=== PATIENT | female | born 1935 | race Caucasian/White ===

== ENCOUNTER → 2016-12-09 | Outpatient (CLI) | payer OTHER ==
[~2016-12-09] MED LIST: GADAVIST IV PRN
--- NOTE | 2016-12-09 14:32 | DIAGNOSTIC IMAGING REPORT ---
BILATERAL CAROTID DOPPLER STUDY HISTORY: SYNCOPE,DIZZINESS,VISUAL CHANGES COMPARISON: None. TECHNIQUE: Real-time, grayscale, and color Doppler sonography of the carotid arteries was performed. Imaging reviewed in the transverse and longitudinal planes. All measurements were calculated based on NASCET criteria. FINDINGS: Antegrade flow is seen in the bilateral vertebral arteries. The brachial pressures are hemodynamically similar. A single small focus of calcified plaque within the right carotid bulb. The peak systolic velocity within the right ICA is 73 cm/s. The right systolic ratio is 1.2. The peak systolic velocity within the left ICA is 78 cm/s. The left systolic ratio is 1.1. IMPRESSION: No hemodynamically significant stenosis seen within the carotid arteries. Electronically signed by: Jonas Hoffman M.D. 12/09/2016 2:31 PM Dictated Date/Time: 12/09/2016 2:28 PM
--- NOTE | 2016-12-09 15:44 | DIAGNOSTIC IMAGING REPORT ---
Brain MRI WITH AND WITHOUT CONTRAST HISTORY: SYNCOPE,DIZZINESS,VISUAL CHANGES TECHNIQUE: Multiplanar multisequence MRI of the brain was performed both before and after the intravenous administration of contrast. COMPARISON STUDY: None. FINDINGS: There is no mass, hematoma, midline shift, or acute infarct. The paranasal sinuses are clear. The mastoid air cells are clear. The ventricles and sulci demonstrate mild age-related involutional changes. Scattered foci of T2 hyperintensity seen within the periventricular and subcortical white matter are nonspecific but suggestive of mild microvascular ischemic changes. The major vascular flow voids at the skull base are well-maintained. Small old lacunar infarcts within the right cerebellar hemisphere. IMPRESSION: No acute intracranial abnormality. Scattered foci of T2 hyperintensity seen within the periventricular and subcortical white matter are nonspecific but favor microvascular ischemic change. 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 Electronically signed by: Jonas Hoffman M.D. 12/09/2016 3:42 PM Dictated Date/Time: 12/09/2016 3:34 PM
== END | disposition home or self-care (01) ==
LOC: C.ULTR 13:45
PROVIDERS: ATTEND Physician Assistant
DX: H53.9 Unspecified visual disturbance (principal); R55 Syncope and collapse; R42 Dizziness and giddiness; R41.3 Other amnesia; S09.90XA Unspecified injury of head, initial encounter; X58.XXXA Exposure to other specified factors, initial encounter; G44.301 Post-traumatic headache, unspecified, intractable; Z86.73 Personal history of transient ischemic attack (TIA), and cerebral infarction without residual deficits

== ENCOUNTER 2019-01-08 22:04 | Inpatient (IN) ==
--- OUTSIDE RECORDS SUMMARY | 2019-01-08 22:08 | External Medical Summary | Continuity of Care Document ---
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 Refills: 0 Aspirin Adult Low Dose 81 MG Oral Tablet Delayed Relea se; TAKE 1 TABLET Bedtime Maria Goss Start: 16-Dec-2016 Quantity: 1 120 Tablet Bottle Refills: 0 Procedures History of Hysterectomy Status: Complete d History of Knee Surgery Status: Complete d Immunizations Immunizations not documented Family History Father Family history of hyperlipidemia (V18.19) (Z83.438) Status: Active Brother Family history of lung disease (V19.8) (Z83.6) Status: Activ e Social History - Smoking Status Never smoker Plan of Treatment Planned Observations Planned Goals not documented Results No Known Results Results not documented
[2019-01-08 22:46] LABS: Basophils # (auto) 0.01 K/uL (0-0.2); Basophils % (auto) 0.2 %; Eosinophils # (auto) 0.08 K/uL (0-0.5); Eosinophils % (auto) 1.6 %; Hematocrit (blood only) 43.7 % (37-47); Hemoglobin 14.2 g/dL (12.0-16.0); Immature Granulocytes # (auto) 0.01 K/uL (0.00-0.02); Immature Granulocytes % (auto) 0.2 %; Lymphocytes # (auto) 1.64 K/uL (1.2-3.4); Lymphocytes % (auto) 32.9 %; Mean Corpuscular Hgb Conc 32.5 g/dL (32-36); Mean Platelet Volume 10.6 fL (7.4-10.4); Monocytes # (auto) 0.61 K/uL (0.11-0.59); Monocytes % (auto) 12.2 %; Neutrophils # (auto) 2.64 K/uL (1.4-6.5); Neutrophils % (auto) 52.9 %; Platelet Count 160 K/uL (130-400); RDW Coefficient of Variation 14.3 % (11.5-14.5); RDW Standard Deviation 44.9 fL (36.4-46.3); Red Blood Count 5.08 M/uL (4.2-5.4); White Blood Count 4.99 K/uL (4.8-10.8)
[2019-01-08 23:03] LABS: Albumin Level 3.6 gm/dl (3.4-5.0); BUN Creatinine Ratio 29.1 (10-20); Calcium 9.6 mg/dl (8.5-10.1); Creatinine Clr Calc Pharmacy 61.4 ml/min; Est GFR (African American) 94.7; Est GFR (Non-African American) 81.7; Potassium 4.1 mmol/L (3.5-5.1)
[2019-01-08 23:06] LABS: Bilirubin,Total 0.4 mg/dl (0.2-1); Globulin 3.7 gm/dl (2.5-4.0); Total Protein 7.3 gm/dl (6.4-8.2)
[2019-01-08 23:08] LABS: Appearance Urine Clear (Clear); Bacteria Urine Automated Negative (Negative); Bilirubin Urine Negative (Negative); Blood Urine Negative (Negative); Color Urine Yellow; Glucose Urine UA Negative (Negative); Ketones Urine Negative (Negative); Leukocyte Esterase Urine Trace (Negative); Nitrite Urine Negative (Negative); Protein Urine Negative (Negative); RBC Urine Automated 0-4 /hpf (0-4); Specific Gravity Urine 1.015 (1.000-1.030); Urobilinogen Urine Negative (Negative)
[2019-01-09 01:27] LABS: Partial Thromboplastin Ratio 0.9; Partial Thromboplastin Time 24.9 Seconds (21.0-31.0); Prothrombin Time 10.6 Seconds (9.0-12.0)
[2019-01-09 01:30] LABS: Albumin Level 3.6 gm/dl (3.4-5.0); Creatinine Clr Calc Pharmacy 61.4 ml/min; Est GFR (African American) 94.7; Est GFR (Non-African American) 81.7; Potassium 3.9 mmol/L (3.5-5.1)
[2019-01-09 01:37] LABS: Bilirubin,Total 0.4 mg/dl (0.2-1); Globulin 3.5 gm/dl (2.5-4.0); Total Protein 7.1 gm/dl (6.4-8.2); Troponin I 0.068 ng/ml (0-0.045)
[2019-01-09] MEDS ORDERED: ASPIRIN 81 MG CHEW PO STA (02:27)
--- NOTE | 2019-01-09 03:00 | History & Physical Report ---
Date of Service January 09, 2019 Assessment & Plan (1) TIA (transient ischemic attack): Hypertension, elevated secondary to possible stroke Troponin elevation suspected above hyperglycemia rule out DM OBS Medical telemetry Neurochecks Aspirin for stroke prevention. MRI/MRA of the brain RE TIA symptoms Neurology consult RE transient aphasia, LLE weakness Additional stroke work-up pending MRI results Permissive hypertension until stroke ruled out check lipid profile, hemoglobin A1c DVT prophylaxis Lovenox subcu Full code Patient son requesting updates from providers. Mr. Thor Nichols, contact #[phone]. History of Present Illness Chief Complaint: Left leg weakness, trouble talking Primary Care Provider: Hermelinda Judge MD History obtained from patient and records. Medical history significant for hypertension. Last night, patient noted left leg weakness, trouble getting her words out. No chest pain, no S OB. No headache. May have happened before but not lasting as long . Improving symptoms at the ER. 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 Allergies Allergy/AdvReac Type Severity Reaction Status Date / Time No Known Allergies Allergy Unverified 01/08/19 23:30 Home Medications Home Medications Medication Instructions Recorded Confirmed Type lisinopril 10 mg PO DAILY 01/08/19 01/08/19 History Past Med/Surg History Medical History Hypertension Family History Other Family history non-contributory Social History Preferred Language: Polish Communication Ability: Effective Framing Inspector Required: No Beliefs That Will Affect Care: None marital status: Current Living Situation: Spouse Other Information That Helps Us Care for You: No Feels Safe at Home: Yes Safety Concerns: Feels Safe At This Time Smoking Status: Never smoker Hx Alcohol Use: No Hx Substance Use: No Review of Systems Review of Systems: As per HPI, all 10 systems reviewed, all other ROS negative Physical Exam Physical Exam: GENERAL: Comfortable, pleasant, looks younger for stated age, no respiratory distress SKIN: Normal color, warm HEENT: [place] palpebral conjunctivae, no ptosis, subtle left-sided upper lip asymmetry noted on speech (chronic as per patient), moist buccal mucosa NECK : Supple, no tenderness CHEST : CTA, no tenderness HEART : RRR, no obvious murmurs ABDOMEN: Some distention, nontender EXTREMITIES : Minimal LE swelling, no LE tenderness, no other conspicuous deformities noted NEUROLOGIC : Coherent, no resting facial asymmetry, no pronator drift, gait and stance not assessed Results & Data Vital Signs (Past 12 Hours) Vital Signs Temp Pulse Pulse Resp BP BP Pulse Ox 01/09/19 02:19 60 16 144/77 H 95 01/09/19 01:14 64 16 166/78 H 95 01/09/19 00:25 64 16 169/84 H 94 01/08/19 22:52 99 01/08/19 22:11 36.8 C 62 16 189/98 H 96 Laboratory Results Laboratory Results WBC 4.99 K/uL (4.8-10.8) 01/08/19 22:08 RBC 5.08 M/uL (4.2-5.4) 01/08/19 22:08 Hgb 14.2 g/dL (12.0-16.0) 01/08/19 22:08 Hct 43.7 % (37-47) 01/08/19 22:08 MCV 86.0 fL (80-100) 01/08/19 22:08 MCH 28.0 pg (25-34) 01/08/19 22:08 MCHC 32.5 g/dL (32-36) 01/08/19 22:08 RDW Std Deviation 44.9 fL (36.4-46.3) 01/08/19 22:08 RDW Coeff of Reece 14.3 % (11.5-14.5) 01/08/19 22:08 Plt Count 160 K/uL (130-400) 01/08/19 22:08 MPV 10.6 fL (7.4-10.4) H 01/08/19 22:08 Immature Gran % (Auto) 0.2 % 01/08/19 22:08 Neut % (Auto) 52.9 % 01/08/19 22:08 Lymph % (Auto) 32.9 % 01/08/19 22:08 [place] % (Auto) 12.2 % 01/08/19 22:08 Eos % (Auto) 1.6 % 01/08/19 22:08 Baso % (Auto) 0.2 % 01/08/19 22:08 Immature Gran # (Auto) 0.01 K/uL (0.00-0.02) 01/08/19 22:08 Neut # (Auto) 2.64 K/uL (1.4-6.5) 01/08/19 22:08 Lymph # (Auto) 1.64 K/uL (1.2-3.4) 01/08/19 22:08 [place] # (Auto) 0.61 K/uL (0.11-0.59) H 01/08/19 22:08 Eos # (Auto) 0.08 K/uL (0-0.5) 01/08/19 22:08 Baso # (Auto) 0.01 K/uL (0-0.2) 01/08/19 22:08 PT 10.6 Seconds (9.0-12.0) 01/09/19 00:46 INR 1.0 (0.9-1.1) 01/09/19 00:46 APTT 24.9 Seconds (21.0-31.0) 01/09/19 00:46 PTT Ratio 0.9 01/09/19 00:46 Sodium 142 mmol/L (136-145) 01/09/19 00:46 Potassium 3.9 mmol/L (3.5-5.1) 01/09/19 00:46 Chloride 107 mmol/L (98-107) 01/09/19 00:46 Carbon Dioxide 29 mmol/L (21-32) 01/09/19 00:46 Anion Gap 6.0 (3-11) 01/09/19 00:46 BUN 16 mg/dl (7-18) 01/09/19 00:46 Creatinine 0.66 mg/dl (0.6-1.2) 01/09/19 00:46 Est Cr Clr Drug Dosing 61.4 ml/min 01/09/19 00:46 Est GFR ( Amer) 94.7 01/09/19 00:46 Est GFR (Non-Af Amer) 81.7 01/09/19 00:46 BUN/Creatinine Ratio 24.0 (10-20) H 01/09/19 00:46 Glucose 111 mg/dl (70-99) H 01/09/19 00:46 Calcium 9.0 mg/dl (8.5-10.1) 01/09/19 00:46 Magnesium 2.0 mg/dl (1.8-2.4) 01/09/19 00:46 Total Bilirubin 0.4 mg/dl (0.2-1) 01/09/19 00:46 AST 13 U/L (15-37) L 01/09/19 00:46 ALT 16 U/L (12-78) 01/09/19 00:46 Alkaline Phosphatase 43 U/L (45-117) L 01/09/19 00:46 Troponin I 0.068 ng/ml (0-0.045) H* 01/09/19 00:46 Total Protein 7.1 gm/dl (6.4-8.2) 01/09/19 00:46 Albumin 3.6 gm/dl (3.4-5.0) 01/09/19 00:46 Globulin 3.5 gm/dl (2.5-4.0) 01/09/19 00:46 Albumin/Globulin Ratio 1.0 (0.9-2) 01/09/19 00:46 TSH 2.060 uIu/ml (0.300-4.500) 01/09/19 00:46 Urine Color Yellow 01/08/19 22:50 Urine Appearance Clear (Clear) 01/08/19 22:50 Urine pH 6.0 (4.5-7.5) 01/08/19 22:50 Ur Specific [place] 1.015 (1.000-1.030) 01/08/19 22:50 Urine Protein Negative (Negative) 01/08/19 22:50 Urine Glucose (UA) Negative (Negative) 01/08/19 22:50 Urine Ketones Negative (Negative) 01/08/19 22:50 Urine Blood Negative (Negative) 01/08/19 22:50 Urine Nitrite Negative (Negative) 01/08/19 22:50 Urine Bilirubin Negative (Negative) 01/08/19 22:50 Urine Urobilinogen Negative (Negative) 01/08/19 22:50 Ur Leukocyte Esterase Trace (Negative) H 01/08/19 22:50 Urine WBC (Auto) 1-5 /hpf (0-5) 01/08/19 22:50 Urine RBC (Auto) 0-4 /hpf (0-4) 01/08/19 22:50 U Hyaline Cast (Auto) 1-5 /lpf (0-5) 01/08/19 22:50 U Epithel Cells (Auto) 10-20 /lpf (0-5) H 01/08/19 22:50 Urine Bacteria (Auto) Negative (Negative) 01/08/19 22:50 Blood Type O Positive 01/09/19 00:46 Antibody Screen NEGATIVE 01/09/19 00:[address] head Initial read: No intracranial hemorrhage or apparent cortical infarct. Involutional changes with small vessel disease. EKG as per my interpretation rate 65, NSR, LAD, LAFB, RBBB, LVH, septal infarct
[2019-01-09] MEDS ORDERED: TRAMADOL HCL 50 MG TABLET PO PRN (04:41)
[2019-01-09] MEDS ORDERED: LACTATED RINGER'S 1,000 ML IV ONE (04:41)
[2019-01-09] MEDS ORDERED: NITROGLYCERIN SL 0.4 MG/TAB TAB SL PRN (04:41)
[2019-01-09] MEDS ORDERED: ACETAMINOPHEN 325 MG TAB PO PRN (04:41)
[2019-01-09] MEDS ORDERED: PROMETHAZINE HCL 12.5 MG in SODIUM CHLORIDE 0.9% 50 ML IV PRN (04:41)
[2019-01-09] MEDS ORDERED: PHARMACIST DISCHARGE MED REC CONSULT PRN (05:07)
--- NOTE | 2019-01-09 05:57 | Emergency Department Note ---
Entered by Antoine Garcia acting as a scribe for History of Present Illness General Chief complaint: Dizziness Time Seen by Provider: 01/08/19 23:04 Source: patient History of Present Illness Provider complaint: Neurological symptoms Onset (ago): hour(s) 3 Location: head Pain Consistency: + constant and + now resolved Relieved By: + none Exacerbated By: + none Associated symptoms: + other (Positive speech impairment; Positve trouble moving; Negative vision impairment); no headaches The patient is an 83 year old female who presents to the Emergency Room with complaints of constant neurological symptoms that started this evening, about 3 hours ago. The patient states she getting ready for bed when she noticed she was having trouble moving her legs and could not speak right. Per the patient's family, these symptoms lasted until the EMS crew arrived. Currently, the patient notes she still does not feel normal and is having trouble finding words. Her family notes that at initial onset her speech was around 40% normal and now it is 80%. The patient states that she has had neurological work ups in the past for head pressure and dizziness. During these work ups the patient had CT scans and MRIs done that only showed a possible TIA. She also notes that during episodes of head pressure and dizziness, she has never had trouble ambulating or speaking. Per the family, the patient has been visiting her at a senior care daily for the past 2 years and had a talk with her brother this evening that also has health problems, but the patient denies being under any stress. Per one of her family members, he saw her before the onset of her symptoms and notes that she was normal. The patient denies any visual impairments during this time. When asked, the patient did not know the year, but her family reports this is normal for her at baseline and that she is starting to develop dementia. The patient also denies any current head pressure. The patient has a history of hypertension, but is not a diabetic. 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 and A total of 10 systems reviewed and were otherwise negative Physical Exam Vital Signs Vital Signs - 24 hr 01/08/19 22:11 01/08/19 22:52 01/09/19 00:25 Temperature 36.8 C Temperature Source Oral Sepsis Recent Fever Within 48 Hours No Sepsis Action Taken by Nursing No Action Required Pulse Rate 62 Pulse Rate [Right] 64 Pulse Rhythm Regular Pulse Rhythm [Right] Regular Pulse Strength Normal Pulse Strength [Right] Normal Respiratory Rate 16 16 Respiratory Effort / Characteristics Non-Labored Spontaneous Non-Labored Spontaneous Respiratory Depth Normal Normal Blood Pressure 189/98 H Blood Pressure [Right Arm] 169/84 H Blood Pressure Mean 128 Blood Pressure Mean [Right Arm] 112 Blood Pressure Position Lying Blood Pressure Position [Right Arm] Lying Pulse Oximetry 96 99 94 Oxygen Delivery Method Room Air Room Air Room Air 01/09/19 01:14 01/09/19 02:19 Temperature Temperature Source Sepsis Recent Fever Within 48 Hours Sepsis Action Taken by Nursing Pulse Rate Pulse Rate [Right] 64 60 Pulse Rhythm Pulse Rhythm [Right] Regular Regular Pulse Strength Pulse Strength [Right] Normal Normal Respiratory Rate 16 16 Respiratory Effort / Characteristics Non-Labored Spontaneous Non-Labored Spontaneous Respiratory Depth Normal Normal Blood Pressure Blood Pressure [Right Arm] 166/78 H 144/77 H Blood Pressure Mean Blood Pressure Mean [Right Arm] 107 99 Blood Pressure Position Blood Pressure Position [Right Arm] Lying Lying Pulse Oximetry 95 95 Oxygen Delivery Method Room Air Room Air General: Slightly slurring words HEENT: Head - normocephalic and atraumatic. Pupils are equal, round, and reactive to light. Extraocular eye muscles are intact and sclera are anicteric. Ears - bilaterally patent canals with noninjected tympanic membranes and no evidence of hemotympanum. Nose - moist nasal mucosa without discharge. Mouth - moist buccal mucosa. Oropharynx is nonerythematous and there is no tonsillar exudate or edema noted. Neck: Supple; no JVD, nuchal rigidity, cervical lymphadenopathy, or auscultated bruits. Heart: Regular rate and rhythm. There is a normal S1 and S2 with no murmurs, clicks, or gallops appreciated. Lungs: Clear to auscultation bilaterally with no wheezes, rales, or rhonchi. Abdomen: Soft, completely nontender, nondistended, with good bowel sounds. There are no palpable pulsatile masses or hepatosplenomegaly. There is no guarding, rigidity, or rebound noted. Extremities: No evidence of cyanosis, clubbing, or edema. There are easily palpable peripheral pulses. Neuro: The patient is awake and alert, oriented to day, time, and place but not year (not unusual per family). Muscle strength is 5/5 in all 4 extremities. 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 There are no cerebellar signs. Cranial nerves 2-12 are intact. Course 230: Past medical records reviewed. The patient was evaluated in room B10, and a complete history and physical examination were performed. A twelve-lead EKG was obtained. She was observed on the laboratory monitor and pulse oximeter. She will go for CT scan of the brain. 0133: I reevaluated the patient and she is still searching for words when speaking. I updated her and her family on results as well as the treatment plan. [facility] service was paged. 0143: I spoke to Dr. Too Draper about the patient's case and he is going to accept her for further evaluation. Consultations Consultation #1: I spoke to Dr. Too Draper about the patient's case and he is going to accept her for further evaluation. Time: 01:43 Administered Medications Lactated Ringer's (Lr) 1,000 mls @ 60 mls/hr IV .[id number] ONE Stop: 01/09/19 21:20 Last Admin: 01/09/19 05:15 Dose: 60 mls/hr Documented by: [id number] Discontinued Medications Aspirin (Aspirin Chew) 324 mg PO NOW STA Stop: 01/09/19 02:28 Last Admin: 01/09/19 02:35 Dose: 324 mg Documented by: [id number] Medical Decision Making Differential Diagnosis The patient is an 83 year old female who presents to the Emergency Room with complaints of constant neurological symptoms that started this evening, about 3 hours ago. Differential diagnosis includes Stroke, TIA, Hypoglycemia, Anxiety, Vertigo, and ICH, amongst others. Medical Records Attestation: I reviewed the patient's medical records. Home Medications Current Medication List: was personally reviewed by me Laboratory Data Attestation: I reviewed the patient's lab results. Result diagrams: 01/08/19 22:08 01/09/19 00:46 Lab Results 01/08/19 01/08/19 01/08/19 Range/Units 22:08 22:08 22:50 WBC 4.99 (4.8-10.8) K/uL RBC 5.08 (4.2-5.4) M/uL Hgb 14.2 (12.0-16.0) g/dL Hct 43.7 (37-47) % MCV 86.0 (80-100) fL MCH 28.0 (25-34) pg MCHC 32.5 (32-36) g/dL RDW Std Deviation 44.9 (36.4-46.3) fL RDW Coeff of Reece 14.3 (11.5-14.5) % Plt Count 160 (130-400) K/uL MPV 10.6 H (7.4-10.4) fL Immature Gran % (Auto) 0.2 % Neut % (Auto) 52.9 % Lymph % (Auto) 32.9 % [place] % (Auto) 12.2 % Eos % (Auto) 1.6 % Baso % (Auto) 0.2 % Immature Gran # (Auto) 0.01 (0.00-0.02) K/uL Neut # (Auto) 2.64 (1.4-6.5) K/uL Lymph # (Auto) 1.64 (1.2-3.4) K/uL [place] # (Auto) 0.61 H (0.11-0.59) K/uL Eos # (Auto) 0.08 (0-0.5) K/uL Baso # (Auto) 0.01 (0-0.2) K/uL PT (9.0-12.0) Seconds INR (0.9-1.1) APTT (21.0-31.0) Seconds PTT Ratio Sodium 141 (136-145) mmol/L Potassium 4.1 (3.5-5.1) mmol/L Chloride 107 (98-107) mmol/L Carbon Dioxide 29 (21-32) mmol/L Anion Gap 5.0 (3-11) BUN 19 H (7-18) mg/dl Creatinine 0.66 (0.6-1.2) mg/dl Est Cr Clr Drug Dosing 61.4 ml/min Est GFR ( Amer) 94.7 Est GFR (Non-Af Amer) 81.7 BUN/Creatinine Ratio 29.1 H (10-20) Glucose 114 H (70-99) mg/dl Calcium 9.6 (8.5-10.1) mg/dl Magnesium (1.8-2.4) mg/dl Total Bilirubin 0.4 (0.2-1) mg/dl AST 14 L (15-37) U/L ALT 16 (12-78) U/L Alkaline Phosphatase 47 (45-117) U/L Troponin I (0-0.045) ng/ml Total Protein 7.3 (6.4-8.2) gm/dl Albumin 3.6 (3.4-5.0) gm/dl Globulin 3.7 (2.5-4.0) gm/dl Albumin/Globulin Ratio 1.0 (0.9-2) TSH (0.300-4.500) uIu/ml Urine Color Yellow Urine Appearance Clear (Clear) Urine pH 6.0 (4.5-7.5) Ur Specific [place] 1.015 (1.000-1.030) Urine Protein Negative (Negative) Urine Glucose (UA) Negative (Negative) Urine Ketones Negative (Negative) Urine Blood Negative (Negative) Urine Nitrite Negative (Negative) Urine Bilirubin Negative (Negative) Urine Urobilinogen Negative (Negative) Ur Leukocyte Esterase Trace H (Negative) Urine WBC (Auto) 1-5 (0-5) /hpf Urine RBC (Auto) 0-4 (0-4) /hpf U Hyaline Cast (Auto) 1-5 (0-5) /lpf U Epithel Cells (Auto) 10-20 H (0-5) /lpf Urine Bacteria (Auto) Negative (Negative) Blood Type Antibody Screen 01/09/19 01/09/19 01/09/19 Range/Units 00:46 00:46 00:46 WBC (4.8-10.8) K/uL RBC (4.2-5.4) M/uL Hgb (12.0-16.0) g/dL Hct (37-47) % MCV (80-100) fL MCH (25-34) pg MCHC (32-36) g/dL RDW Std Deviation (36.4-46.3) fL RDW Coeff of Reece (11.5-14.5) % Plt Count (130-400) K/uL MPV (7.4-10.4) fL Immature Gran % (Auto) % Neut % (Auto) % Lymph % (Auto) % [place] % (Auto) % Eos % (Auto) % Baso % (Auto) % Immature Gran # (Auto) (0.00-0.02) K/uL Neut # (Auto) (1.4-6.5) K/uL Lymph # (Auto) (1.2-3.4) K/uL [place] # (Auto) (0.11-0.59) K/uL Eos # (Auto) (0-0.5) K/uL Baso # (Auto) (0-0.2) K/uL PT 10.6 (9.0-12.0) Seconds INR 1.0 (0.9-1.1) APTT 24.9 (21.0-31.0) Seconds PTT Ratio 0.9 Sodium 142 (136-145) mmol/L Potassium 3.9 (3.5-5.1) mmol/L Chloride 107 (98-107) mmol/L Carbon Dioxide 29 (21-32) mmol/L Anion Gap 6.0 (3-11) BUN 16 (7-18) mg/dl Creatinine 0.66 (0.6-1.2) mg/dl Est Cr Clr Drug Dosing 61.4 ml/min Est GFR ( Amer) 94.7 Est GFR (Non-Af Amer) 81.7 BUN/Creatinine Ratio 24.0 H (10-20) Glucose 111 H (70-99) mg/dl Calcium 9.0 (8.5-10.1) mg/dl Magnesium 2.0 (1.8-2.4) mg/dl Total Bilirubin 0.4 (0.2-1) mg/dl AST 13 L (15-37) U/L ALT 16 (12-78) U/L Alkaline Phosphatase 43 L (45-117) U/L Troponin I 0.068 H* (0-0.045) ng/ml Total Protein 7.1 (6.4-8.2) gm/dl Albumin 3.6 (3.4-5.0) gm/dl Globulin 3.5 (2.5-4.0) gm/dl Albumin/Globulin Ratio 1.0 (0.9-2) TSH 2.060 (0.300-4.500) uIu/ml Urine Color Urine Appearance (Clear) Urine pH (4.5-7.5) Ur Specific [place] (1.000-1.030) Urine Protein (Negative) Urine Glucose (UA) (Negative) Urine Ketones (Negative) Urine Blood (Negative) Urine Nitrite (Negative) Urine Bilirubin (Negative) Urine Urobilinogen (Negative) Ur Leukocyte Esterase (Negative) Urine WBC (Auto) (0-5) /hpf Urine RBC (Auto) (0-4) /hpf U Hyaline Cast (Auto) (0-5) /lpf U Epithel Cells (Auto) (0-5) /lpf Urine Bacteria (Auto) (Negative) Blood Type O Positive Antibody Screen NEGATIVE Imaging Data Radiologist's Impression: Radiology results as stated below per my review and the radiologist's interpretation: CT HEAD No intracranial hemorrhage or apparent acute cortical infarct. Involutional changes with small vessel disease. Radiologist: Konstantin Sawant M.D. Study ready at 00:27 and initial results transmitted at 00:33 ECG Data Attestation: I personally reviewed and interpreted this ECG as follows: Indication: weakness Rate (beats per minute): 65 Rhythm: normal sinus Findings: + RBBB; no PAC and no PVC Comparison ECG Date: no prior available Blood Pressure Blood Pressure Findings: Elevated blood pressure Blood Pressure Disposition: further management by hospitalist DONNA Riddle The patient is an 83 year old female who presents to the Emergency Room with complaints of constant neurological symptoms that started this evening, about 3 hours ago. The patient initially had lower extremity weakness and expressive aphasia. The symptoms have since resolved and she is left with slightly slurred speech. CT scan of the brain was negative urinalysis was negative. Patient will require further evaluation for CVA/TIA. I did not believe that the patient was a candidate for TPA since her symptoms were improving. I discussed the case with the hospitalist and they will evaluate for further management. Impression & Plan Slurred speech, Non-ST elevation [place] (NSTEMI), Hypertension Discharge Plan Visit Data *Final* Discharge Date/Time: 01/09/19 04:21 Chief Complaint: Dizziness ED Provider: Yi Hernandez Discharge Problem: Slurred speech, Non-ST elevation [place] (NSTEMI), Hypertension Patient Disposition: Admitted As Inpatient Discharge Instructions Interventions: ED Discharge Assessment Last Done: 01/09/19 04:21 Discharge Problem: Hypertension Qualifiers: Hypertension type: unspecified Qualified Code(s): I10 - Essential (primary) hypertension The scribe's documentation has been prepared under my direction and personally reviewed by me in its entirety. I confirm that the note above accurately reflects all work, treatment, procedures, and medical decision making performed by me.
[2019-01-09 06:05] LABS: Basophils # (auto) 0.01 K/uL (0-0.2); Basophils % (auto) 0.2 %; Eosinophils # (auto) 0.02 K/uL (0-0.5); Eosinophils % (auto) 0.5 %; Hematocrit (blood only) 43.9 % (37-47); Hemoglobin 14.3 g/dL (12.0-16.0); Lymphocytes % (auto) 16.4 %; Mean Corpuscular Hgb Conc 32.6 g/dL (32-36); Mean Corpuscular Volume 85.6 fL (80-100); Mean Platelet Volume 9.9 fL (7.4-10.4); Monocytes # (auto) 0.41 K/uL (0.11-0.59); Monocytes % (auto) 9.6 %; Neutrophils # (auto) 3.12 K/uL (1.4-6.5); Neutrophils % (auto) 73.3 %; Platelet Count 147 K/uL (130-400); RDW Coefficient of Variation 14.3 % (11.5-14.5); RDW Standard Deviation 45.1 fL (36.4-46.3); Red Blood Count 5.13 M/uL (4.2-5.4); White Blood Count 4.26 K/uL (4.8-10.8)
--- NOTE | 2019-01-09 06:09 | CT Scan Report ---
CT head/brain wo con CLINICAL HISTORY: 83 years-old Female presenting with Stroke evaluation . TECHNIQUE: Multidetector CT imaging of the head was performed without the use of intravenous contrast . IV contrast: None. One or more dose lowering techniques were used consistent with the principles of ALARA (as low as reasonably achievable), including automatic exposure control, mA or kV adjustment t o individual patient size, and/or use of iterative reconstruction. COMPARISON: Brain MR from 12/09/2016. CT DOSE (mGy.cm): The estimated cumulative dose is 537.48 mGy.cm. FINDINGS: Regional Economic Liaison topogram: Unremarkable. Proportional ventricular and sulcal prominence, likely age-related parenchymal volume loss. No hemorr jaden. Brain parenchyma normal in appearance with preserved holcomb-white differentiation. No acute francisca torial infarct. No mass effect or midline shift. No extra-axial fluid collection. Paranasal sinuses a nd mastoid air cells clear. Calvarium intact. IMPRESSION: 1. No acute intracranial abnormality. Electronically signed by: Aleks Jacques M.D. 01/09/2019 6:07 AM
[2019-01-09 06:15] LABS: Partial Thromboplastin Ratio 0.9; Partial Thromboplastin Time 25.1 Seconds (21.0-31.0)
[2019-01-09 06:40] LABS: BUN Creatinine Ratio 22.8 (10-20); Creatinine Clr Calc Pharmacy 62.7 ml/min; Est GFR (African American) 95.6; Est GFR (Non-African American) 82.5; Potassium 3.6 mmol/L (3.5-5.1)
[2019-01-09 06:49] LABS: Troponin I 0.068 ng/ml (0-0.045)
[2019-01-09 07:44] LABS: Estimated Average Glucose 131 mg/dl; Hemoglobin A1C 6.2 % (4.5-5.6)
--- NOTE | 2019-01-09 08:38 | Hospitalist Progress Note ---
Date of Service January 09, 2019 Assessment & Plan (1) Slurred speech: Concern for stroke-like symptoms - As per ED notes on 01/08/19 "The patient is an 83 year old female who presents to the Emergency Room with complaints of constant neurological symptoms that started this evening, about 3 hours ago. The patient states she getting ready for bed when she noticed she was having trouble moving her legs and could not speak" -No acute intracranial abnormality on CT head imaging -admitting nocturnalist gave patient high dose aspirin 324 in early AM of 01/09/19 -patient reports that her speech is improving, she is unclear as to the timing as mouth asymmetry (perhaps she noticed this in the past 1 year) -currently plans for aspirin 81 mg daily starting on 01/10/19, will start atorvastatin -awaiting MRI brain to be performed and neurology consultation -Her right leg strength appears somewhat stronger than the left leg. Patient reports at baseline she walks with cane. will have PT/OT assessments Hypertension -ED presentation blood pressure was 189/98 but this has trended down to systolic between 150s to 160s -AM blood pressure of 01/09/19 is 143/81 -hold off home dose lisinopril 10 mg for now Elevated troponins -initial and second troponin stable as 0.068 -patient denies chest pain -echocardiogram (TTE) awaiting to be performed DVT ppx: Lovenox 30 mg daily Subjective Patient seen and examined at bedside. She is awake and alert and speaking in full sentences. her speech is clear. There is asymmetry of the mouth but patient believes this may have been there for 1 year. Her upper extremity strength is equal and symmetric. She could not cooperate with the finger to nose test. Her right leg strength appears somewhat stronger than the left leg. Patient reports at baseline she walks with cane. She needed assistance of 2 nursing staff members without cane to help her get to the wheelchair so that she can go to the echocardiogram testing. Patient denies chest pain. no shortness of breath, no abdomen discomforts, no problems with eating breakfast. no coughing Physical Exam Constitutional: comfortable Eyes: EOM intact bilaterally ENMT: external ear and nose normal, oropharynx normal Neck: normal visual inspection Respiratory: normal respiratory effort, lungs clear to auscultation Cardiovascular: RRR, no murmur, no edema Gastrointestinal (Abdomen): normal bowel sounds, soft, nontender, no hepatosplenomegaly Neurologic: There is asymmetry of the mouth but patient believes this may have been there for 1 year. Her upper extremity strength is equal and symmetric. She could not cooperate with the finger to nose test. Her right leg strength appears somewhat stronger than the left leg. Psychiatric: A+Ox3, euthymic affect Results & Data Vital Signs (Past 12 Hours) Vital Signs Temp Pulse Pulse Resp BP BP Pulse Ox 01/09/19 07:24 36.8 C 62 16 143/81 H 96 01/09/19 04:53 36.6 C 63 20 168/83 H 95 01/09/19 04:21 58 L 16 157/74 H 95 01/09/19 04:00 70 16 157/74 H 96 01/09/19 02:19 60 16 144/77 H 95 01/09/19 01:14 64 16 166/78 H 95 01/09/19 00:25 64 16 169/84 H 94 01/08/19 22:52 99 01/08/19 22:11 36.8 C 62 16 189/98 H 96
[2019-01-09] MEDS: ENOXAPARIN INJ 30 MG/0.3 ML SYR SQ SCH (10:32)
[2019-01-09] MEDS: ATORVASTATIN 40 MG TAB PO SCH (10:33)
--- NOTE | 2019-01-09 11:32 | Magnetic Resonance Report ---
MR angio head wo con CLINICAL HISTORY: 83 years-old Female presenting with confusion yesterday, concern for stroke. TECHNIQUE: MR angiography of the head was performed without the use of intravenous contrast using 3-D [id number] technique. 3-D volumetric and/or maximum intensity projection (MIP) images were subse quently reconstructed for review. IV contrast: None. COMPARISON: Contrast enhanced brain MR from 12/09/2016. FINDINGS: Localizer images: Unremarkable. Anterior circulation: Intracranial portions of the internal carotid arteries patent to the level of t he termini. Anterior cerebral arteries patent. Middle cerebral arteries patent. Anterior communicatin g artery patent. Posterior circulation: Codominant vertebral arteries. Intradural portions of the vertebral arteries p atent. Posterior inferior cerebellar arteries patent. Basilar artery patent. Anterior inferior cerebe llar arteries poorly visualized. Superior cerebellar arteries patent. Posterior cerebral arteries pat ent. Posterior communicating arteries hypoplastic or aplastic. IMPRESSION: 1. No significant stenosis, aneurysm, or focal vessel occlusion. Electronically signed by: Aleks Jacques M.D. 01/09/2019 11:30 AM
--- NOTE | 2019-01-09 11:50 | Magnetic Resonance Report ---
MR brain wo con CLINICAL HISTORY: 83 years-old Female presenting with tia, word finding, recent confusion, concern fo r stroke. TECHNIQUE: Multisequence, multiplanar MR imaging of the brain was performed without the use of intrav enous contrast. IV contrast: None. COMPARISON: Noncontrast CT head performed earlier the same day and brain MR from 12/09/2016. FINDINGS: Localizer images: Unremarkable. Normal midline sagittal structures. Proportional ventricular and sulcal prominence, likely age-relate d parenchymal volume loss. No restricted diffusion or hemorrhage. Periventricular and subcortical whi te matter T2/FLAIR hyperintensity, nonspecific but likely indicative of chronic small vessel ischemic change. Old lacunar infarcts in the right cerebellar hemisphere. No mass effect or midline shift. No extra-axial fluid collection. T2 skull base flow voids preserved. Bone marrow signal intensity within the calvarium within normal limits. IMPRESSION: 1. 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 No acute in tracranial abnormality. Electronically signed by: Aleks Jacques M.D. 01/09/2019 11:49 AM
--- NOTE | 2019-01-09 12:43 | Communication Note ---
Date of Service: January 09, 2019 I saw Mrs. Nichols today in the accompaniment of her son who provided some of the history and reviewed the emergency room notes and Dr. Concepcion's admission note along with Dr. Boland's progress note. Patient is regularly seen by Dr. Judge in [place] and has a history of some vaguely defined gait disturbance, some emerging cognitive impairment, and some low-grade hypertension for which she takes lisinopril as her only medication. 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 My recommendation would be to continue aspirin as she was not taking anything to prevent strokes at this time, to await the echocardiographic results, and if everything is stable and she is back to what is seemingly her baseline tomorrow, allow her to be discharged with outpatient follow-up with Zainab Batres and myself at [facility] Full consultation has been dictated but will not be typed until later this afternoon Panda Brady MD
--- NOTE | 2019-01-09 13:41 | Consultation Report ---
DATE OF CONSULTATION: 01/09/[address] Son Boland HISTORY OF PRESENT ILLNESS: Toshia is 83 years old, is right handed, is a patient of Dr. Hermelinda Judge of [place] and has a pretty benign past medical history including only hypertension, several uncomplicated pregnancies, and her only medication is lisinopril. In the past, she was on aspirin, but apparently felt the risk of bleeding was too high and stopped it herself about a year ago. In this setting, according to her son who is with her in the room, she has also had increasing memory disturbance and also an unsteady gait and in fact was evaluated at [facility] in [place] within the past year with no vestibular abnormalities being detected. Her gait is described as shuffling. She talks about a tremor and some instability and has a relatively low volume speech which is getting worse over time. In this setting, she presented to the Emergency Room with apparently the abrupt onset of dysarthria and weakness, I believe, of the left lower extremity, although she is a little vague about this now. It sounds as though her symptoms were prominent at their onset and by the time she arrived here in the Emergency Room, they were 40% better and according to her son, she is essentially back to her baseline now. When this occurred is not clear, but it was felt that she was not an appropriate candidate for TPA because the onset of symptoms was at least 3 hours prior to her arrival and she was improving. She has been admitted and was placed on aspirin and imaging studies have been done which included an MRI showing no particular evidence for a new stroke, only some small vessel disease, an old cerebellar stroke, and an MRA of the intracranial circulations which is unremarkable revealing no intracranialstenosis, aneurysm, etc. An echocardiogram apparently is pending. FAMILY HISTORY: Noncontributory. SOCIAL HISTORY: Reveals that her has advanced Parkinson's and is currently in a [place] [facility]. She visits him on a daily basis, but apparently is under stress due to this. She is a nonsmoker, nonconsumer of ethanol. REVIEW OF SYSTEMS: According to she and her son, she is pretty unremarkable. She has had no recent fevers, sweats, or chills. She does have a history of urinary tract infections, but none recently. She has not had any cough, hemoptysis, weight loss, weight gain. No new issues referral to head, eyes, ears, nose and throat, cardiovascular, pulmonary, gastrointestinal, genitourinary, musculoskeletal, dermatologic, or endocrinologic systems are reported. MEDICATIONS: Her only medications are lisinopril. ALLERGIES: She has no drug allergies. PHYSICAL EXAMINATION: VITAL SIGNS: Her blood pressure was 144/77, pulse was 60 and regular, respirations were 16. GENERAL: She was a thin but otherwise well-developed, well-nourished elderly woman. HEAD, EYES, EARS, NOSE AND THROAT: On examination no deformities. CARDIAC: There were no carotid bruits, normal cardiac rate and rhythm. No cardiac murmurs. LUNGS: Clear lungs. ABDOMEN: Normal abdominal examination. EXTREMITIES: No peripheral edema and good peripheral pulses. NEUROLOGIC: Today she has mild but clear cut parkinsonism with a low volume speech which is monotonous and associated with a flattening of the facial expression. Positive Myerson sign yet no asymmetry or facial movements. Normal facial sensation. No clear dysarthria on my examination with good protrusion of the tongue, good neck flexor strength and normal extraocular movements, visual contreras, and gross acuity. Gait is shuffling slow with poor associated movements, simian posturing, and there is occasional tremor at rest of either hand at a rate of about 4-6 cycles per second coupled with some mild cogwheel rigidity that requires little or no reinforcement to demonstrate and with normal reflexes, downgoing toes, normal strength and normal sensation of large and small fiber modalities. ASSESSMENT AND PLAN: At this point, the symptoms are suggestive of a TIA. This could have involved a brain stem location in view of the leg dysfunction and dysarthria. It could have been hemispheric event, but we see nothing on MRI to confirm its location nor do we see any evidence of any intracranial or vascular issues She is clinically in sinus rhythm but does still have paroxysmal atrial fibrillation. We need to look at the echo, place her on aspirin, and probably do a Zio patch on an outpatient basis just for the sake of completion. WE also need to check for extracranial stenoses and I will place and order for a duplex of the carotids to screen for this A major neurologic problem here, however, is emerging parkinsonism with cognitive impairment and treatment might be difficult with the cognitive impairment on board as dopamine often makes this worse and brings about hallucinations. Currently, her motor system is only mildly affected and we may not need to treat this at all but she is going to need an outpatient evaluation and followup. I will check back with her tomorrow, but at this point I am recommending only that we evaluate the results of the echo, get a cuplex of the carotids consider an outpatient Zio patch, place her on aspirin and have her follow up with Zainab Batres PA-C, and myself in our [facility] Neurology clinic at discharge for further evaluation and discussion regarding Parkinson's and potential medication. THADDEUS
--- NOTE | 2019-01-09 17:19 | Communication Note ---
Date of Service: January 09, 2019 I had erroneously stated that the extracranial circulation to the brain had been assessed by mra and this is incorrect-only the intracranial circulation was analyzed and is normal She will need a duplex of the carotids with vertebral flow analysis to screen for this as a source of potential clot and tia and have ordered the duplex today the echo is still pending and needs reviewed I will check back with her tomorrow and review the pending studies Panda Brady MD
[2019-01-09 18:58] LABS: Partial Thromboplastin Time 25.9 Seconds (21.0-31.0)
[2019-01-10 00:49] LABS: Basophils # (auto) 0.01 K/uL (0-0.2); Basophils % (auto) 0.2 %; Eosinophils # (auto) 0.14 K/uL (0-0.5); Eosinophils % (auto) 3.4 %; Hematocrit (blood only) 43.2 % (37-47); Lymphocytes # (auto) 0.94 K/uL (1.2-3.4); Lymphocytes % (auto) 22.9 %; Mean Corpuscular Hgb Conc 32.4 g/dL (32-36); Mean Corpuscular Volume 84.5 fL (80-100); Mean Platelet Volume 10.1 fL (7.4-10.4); Monocytes # (auto) 0.44 K/uL (0.11-0.59); Monocytes % (auto) 10.7 %; Neutrophils # (auto) 2.57 K/uL (1.4-6.5); Neutrophils % (auto) 62.8 %; Platelet Count 150 K/uL (130-400); RDW Coefficient of Variation 14.3 % (11.5-14.5); RDW Standard Deviation 44.1 fL (36.4-46.3); Red Blood Count 5.11 M/uL (4.2-5.4)
[2019-01-10 01:03] LABS: Partial Thromboplastin Ratio 0.9; Partial Thromboplastin Time 25.4 Seconds (21.0-31.0)
[2019-01-10 01:06] LABS: Albumin Level 3.5 gm/dl (3.4-5.0); BUN Creatinine Ratio 23.5 (10-20); Calcium 8.9 mg/dl (8.5-10.1); Creatinine Clr Calc Pharmacy 63.7 ml/min; Est GFR (African American) 96.1; Est GFR (Non-African American) 82.9; Potassium 3.9 mmol/L (3.5-5.1)
[2019-01-10 01:37] LABS: Albumin Globulin Ratio 0.9 (0.9-2); Bilirubin,Total 0.6 mg/dl (0.2-1); Globulin 3.7 gm/dl (2.5-4.0); Total Protein 7.2 gm/dl (6.4-8.2); Troponin I 0.074 ng/ml (0-0.045)
[2019-01-10] MEDS: ENOXAPARIN INJ 30 MG/0.3 ML SYR SQ SCH (07:57)
[2019-01-10] MEDS: ATORVASTATIN 40 MG TAB PO SCH (07:57)
[2019-01-10] MEDS: ASPIRIN 81 MG ECTAB PO SCH (07:57)
--- NOTE | 2019-01-10 08:59 | Cardiology Consultation ---
Date of Consultation January 10, 2019 Assessment & Plan (1) TIA (transient ischemic attack): Neurology's note is appreciated. I think we should proceed with Dr. Brady's plan. Patient should have a ZIO patch after discharge to exclude paroxysmal atrial arrhythmias as an etiology of her TIAs. (2) Hypertension: (3) Troponin level elevated: I do not believe this is acute coronary syndrome. The troponins are only borderline elevated and are persistently elevated with no rise or decrease which leads me away from the diagnosis of acute coronary syndrome. Her echocardiogram is normal. She does have some conduction abnormalities with a bifascicular block but has not been symptomatic with syncope or dizziness. She will have a ZIO patch to monitor not only for PAF but also for intermittent heart block. I feel the remainder of her work-up can be completed as an outpatient. History of Present Illness Attending Physician: Son Boland MD History of Present Illness This is an 83-year-old female who presented with left-sided weakness. She has been seen by neurology who feels that she had a TIA. CT and MRI of the brain showed no acute infarcts. She does have some chronic small vessel disease and lacunar infarcts of the occipital lobes. She is almost fully back to baseline. She states she still has some residual left upper and lower extremity weakness. Patient has also had some parkinsonian type symptoms and possible Parkinson's disease. The patient has no prior history of heart disease. She denies zak cardial infarction, angina, congestive heart failure or cardiac arrhythmias. She has had no recent cardiac symptoms. She denies heart palpitations or tachycardia. No chest pain or shortness of breath. No orthopnea. Since her hospital admission she has been in a normal sinus rhythm. Her echocardiogram fails to show any wall motion abnormalities that would suggest ischemic heart disease and no cardiac source of emboli. She has had a very borderline elevated troponin which is persistent without a significant increase or decrease. Her EKG shows sinus rhythm with a left anterior hemiblock and a right bundle branch block consistent with a bifascicular block. She is had no history of syncope or near syncope. She has a very low creatinine of 0.65 which is unusual for this age group. At times in the elderly the creatinine does not reflect their GFR which lower than anticipated and might explain the borderline elevation in her troponins. Allergies Allergy/AdvReac Type Severity Reaction Status Date / Time No Known Allergies Allergy Unverified 01/08/19 23:30 Home Medications Home Medications Medication Instructions Recorded Confirmed Type lisinopril 10 mg PO DAILY 01/08/19 01/08/19 History Patient History Medical History Hypertension Family History Other Family history non-contributory Social History Preferred Language: Romanian Communication Ability: Effective Looping Inspector Required: No Beliefs That Will Affect Care: None marital status: Current Living Situation: Spouse Other Information That Helps Us Care for You: No Feels Safe at Home: Yes Safety Concerns: Feels Safe At This Time Smoking Status: Never smoker Hx Alcohol Use: No Hx Substance Use: No Review of Systems Review of Systems: All systems reviewed & are unremarkable except as noted in HPI & below Nothing additional Physical Exam Physical Exam: General: no acute distress and stated age Head: normocephalic, no masses, lesions, tenderness or abnormalities Eyes: conjunctiva are pink and non-injected, sclera clear Neck: supple, no adenopathy, no bruits, normal jugular venous pulse, no hepatojugular reflux Chest: normal shape and normal respiratory effort Lungs: clear to auscultation and percussion Cardiac Exam: - regular rate & rhythm, no murmurs gallops or rubs - normal S1, normal S2 Pulses: 2(+) throughout Abdomen: abdomen soft, non-tender, no abnormal masses and no hepatosplenomegaly Musculoskeletal: no gait disturbance, no joint inflammation, no deforming arthritis Extremities: no edema and no cyanosis Neuro: grossly normal exam Results & Data Vital Signs (Past 12 Hours) Vital Signs Temp Pulse Pulse Resp BP BP Pulse Ox 01/10/19 08:00 58 L 01/10/19 07:15 36.7 C 59 L 18 159/94 H 97 01/10/19 03:35 165/70 H 01/10/19 03:25 36.8 C 59 L 18 174/93 H 93 01/09/19 23:09 69 01/09/19 23:08 36.7 C 59 L 18 155/77 H 92 Laboratory Results Laboratory Results - last 24 hr 01/09/19 01/09/19 01/09/19 12:25 18:38 18:38 WBC RBC Hgb Hct MCV MCH MCHC RDW Std Deviation RDW Coeff of Reece Plt Count MPV Immature Gran % (Auto) Neut % (Auto) Lymph % (Auto) Gaston % (Auto) Eos % (Auto) Baso % (Auto) Immature Gran # (Auto) Neut # (Auto) Lymph # (Auto) Gaston # (Auto) Eos # (Auto) Baso # (Auto) APTT 25.9 PTT Ratio 1.0 Sodium Potassium Chloride Carbon Dioxide Anion Gap BUN Creatinine Est Cr Clr Drug Dosing Est GFR ( Amer) Est GFR (Non-Af Amer) BUN/Creatinine Ratio Glucose Calcium Total Bilirubin AST ALT Alkaline Phosphatase Troponin I 0.093 H* 0.072 H* Total Protein Albumin Globulin Albumin/Globulin Ratio 01/10/19 01/10/19 01/10/19 00:34 00:34 00:34 WBC 4.10 L RBC 5.11 Hgb 14.0 Hct 43.2 MCV 84.5 MCH 27.4 MCHC 32.4 RDW Std Deviation 44.1 RDW Coeff of Reece 14.3 Plt Count 150 MPV 10.1 Immature Gran % (Auto) 0.0 Neut % (Auto) 62.8 Lymph % (Auto) 22.9 Gaston % (Auto) 10.7 Eos % (Auto) 3.4 Baso % (Auto) 0.2 Immature Gran # (Auto) 0.00 Neut # (Auto) 2.57 Lymph # (Auto) 0.94 L Gaston # (Auto) 0.44 Eos # (Auto) 0.14 Baso # (Auto) 0.01 APTT 25.4 PTT Ratio 0.9 Sodium 140 Potassium 3.9 Chloride 107 Carbon Dioxide 30 Anion Gap 4.0 BUN 15 Creatinine 0.63 Est Cr Clr Drug Dosing 63.7 Est GFR ( Amer) 96.1 Est GFR (Non-Af Amer) 82.9 BUN/Creatinine Ratio 23.5 H Glucose 105 H Calcium 8.9 Total Bilirubin 0.6 AST 15 ALT 17 Alkaline Phosphatase 47 Troponin I 0.074 H* Total Protein 7.2 Albumin 3.5 Globulin 3.7 Albumin/Globulin Ratio 0.9 Medications Administered Current Inpatient Medications Acetaminophen (Tylenol) 650 mg PO Q4H PRN PRN Reason: Pain or Fever Stop: 02/08/19 04:40 Last Admin: 01/09/19 18:02 Dose: 650 mg Documented by: Aspirin (Ecotrin Ectab) 81 mg PO [facility] Stop: 02/09/19 08:59 Last Admin: 01/10/19 07:57 Dose: 81 mg Documented by: Atorvastatin Calcium (Lipitor) 40 mg PO [facility] Stop: 02/08/19 08:59 Last Admin: 01/10/19 07:57 Dose: 40 mg Documented by: Enoxaparin Sodium (Lovenox) 30 mg SQ [facility] Stop: 02/08/19 08:59 Last Admin: 01/10/19 07:57 Dose: 30 mg Documented by: Promethazine HCl 12.5 mg/ (Sodium Chloride) 50.5 mls @ 202 mls/hr IV Q6H PRN PRN Reason: Nausea And Vomiting Stop: 02/08/19 04:40 Miscellaneous Information (Pharmacist Discharge Med Rec Consult) 1 ea N/A UD PRN PRN Reason: Consult Stop: 02/08/19 05:06 Nitroglycerin (Nitrostat) 0.4 mg SL UD PRN PRN Reason: Chest Pain Stop: 02/08/19 04:40 (1) Hypertension Hypertension type: unspecified Qualified Code(s): I10 - Essential (primary) hypertension
--- NOTE | 2019-01-10 10:54 | Ultrasound Report ---
ULTRASOUND OF THE CAROTID ARTERIES CLINICAL HISTORY: Transient ischemic attack. COMPARISON STUDY: No priors. TECHNIQUE: Real-time, grayscale, and color Doppler sonography of the carotid arteries is performed. I mages are reviewed in the transverse and longitudinal planes. FINDINGS: Blood pressure in the right arm measures 137/107 and blood pressure in the left arm measures 155/97. The carotid arteries are patent bilaterally and demonstrate antegrade flow. There is minimal atherosc lerotic plaque seen in the right carotid bulb. Normal doppler arterial waveforms are seen throughout. Velocity measurements are listed below. Common carotid peak systolic velocity (cm/sec): RIGHT: 61 LEFT: 58 ICA proximal peak systolic velocity (cm/sec): RIGHT: 33 LEFT: 32 ICA mid peak systolic velocity (cm/sec): RIGHT: 35 LEFT: 49 ICA distal peak systolic velocity (cm/sec): RIGHT: 37 LEFT: 64 ICA/CC peak systolic ratio: RIGHT: 0.6 LEFT: 1.1 Antegrade flow was shown in the vertebral arteries. The external carotid arteries are patent. IMPRESSION: 1. There is no sonographic evidence of hemodynamically significant stenosis in the right or left navarrete tid arterial system. 2. Antegrade flow is shown in the vertebral arteries. Electronically signed by: Chapo Frey M.D. 01/10/2019 10:52 AM
--- NOTE | 2019-01-10 11:12 | Communication Note ---
Date of Service: January 10, 2019 I saw Toshia today in follow-up and she does look significantly improved. Her speech is clear and she describes less lower extremity weakness. This appears to be what we used to determine a reversible ischemic neurologic deficit but I suspect this was a completed event that did not show up on MRI and probably involved either the deep portions of 1 of the hemispheres at the level of the basal ganglia or the ventral brainstem She continues to demonstrate parkinsonian features but these to seem less evident although there is very early in the morning and as a day goes on these might become more problematical or at least obvious. 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 We are awaiting results of her carotid duplex and I was only able to review the images from the right which appeared to be normal but I do not have images on the left nor do I have the official report and I will certainly defer to radiology on interpretation I discussed her case with Dr. Boland She will need to be seen by Zainab Batres and myself at [facility] about 3 to 4 weeks after she is discharged from [facility] Panda Brady MD
--- NOTE | 2019-01-10 11:49 | Hospitalist Progress Note ---
Date of Service January 10, 2019 Assessment & Plan (1) TIA (transient ischemic attack): Slurred speech: Transient Ischemic Attack Parkinsonian symptoms Ambulatory Dysfunction - As per ED notes on 01/08/19 "The patient is an 83 year old female who presents to the Emergency Room with complaints of constant neurological symptoms that started this evening, about 3 hours ago. The patient states she getting ready for bed when she noticed she was having trouble moving her legs and could not speak" -No acute intracranial abnormality on CT head imaging -admitting nocturnalist gave patient high dose aspirin 324 in early AM of 01/09/19 -patient reports that her speech is improving as of 01/09/19, she is unclear as to the timing of some mouth asymmetry (perhaps she noticed this in the past 1 year) -currently plans for aspirin 81 mg daily starting on 01/10/19, started atorvastatin - There is no sonographic evidence of hemodynamically significant stenosis in the right or left carotid arterial system on ultrasound carotids. MRI/MRA brain has not find evidence for acute brain injury but neurology suspects that patient had Transient Ischemic Attack which did not show up on the MRI imaging versus Parkinsonian symptoms as concerning for shuffling gait -as per physical therapy notes, patient will need inpatient physical therapy because of right foot drag -neurology also would like to re-evaluate patient after the stint on physical rehab on outpatient basis on whether or not any need for Parkinson's medication such as Sinemet or any form of dopamine therapy -will upgrade patient from observation to full admission due to ambulatory dysfunction which may require case management help to request for inpatient rehabilitation. Patient and her sons did indicate interest for [facility] for physical therapy. Will continue hospital PT/OT evaluations while in the hospital Hypertension -ED presentation blood pressure was 189/98 but this has trended down to systolic between 150s to 160s -AM blood pressure of 01/09/19 was 143/81 -resume home dose lisinopril 10 mg starting on 01/10/19 and monitor blood pressure Elevated troponins -patient incidentally found to have elevated troponins on this admission without chest pain; initial and second troponin stable as 0.068 with third troponin as 0.093 and then stabilized with troponins of 0.07 x 2 -echocardiogram (TTE) performed and intrepreted as normal by tomahawk weapon system operator -as per cardiology Dr Benton: The troponins are only borderline elevated and are persistently elevated with no rise or decrease which leads me away from the diagnosis of acute coronary syndrome. Her echocardiogram is normal. She does have some conduction abnormalities with a bifascicular block but has not been symptomatic with syncope or dizziness. -Dr. Benton agrees with neurology recommendations of outpatient ZIO patch for history of Paroxysmal atrial fibrillation and also for intermittent heart block DVT ppx: Lovenox 30 mg daily son Thor Nichols, contact #[phone]. son Michele [phone] Subjective Patient seen and examined at bedside. No chest pain. no shortness of breath. no abdomen pain. patient's son at the bedside Thor. We discussed about hospital course and recommendations about inpatient rehabilitation because of patient's gait. I walked with the patient with advanced nursing professor holding on to the patient and no falling events in the hospital to date. patient speaking well and clearly Physical Exam Constitutional: comfortable Eyes: EOM intact bilaterally ENMT: external ear and nose normal, oropharynx normal Neck: normal visual inspection Respiratory: normal respiratory effort, lungs clear to auscultation Cardiovascular: RRR, no murmur, no edema Gastrointestinal (Abdomen): normal bowel sounds, soft, nontender, no hepatosplenomegaly Musculoskeletal: Head/Neck/Chest: normocephalic and head atraumatic Neurologic: PERRL, EOMI, accommodation nl, no face palsy, no dysarthria Psychiatric: A+Ox3, euthymic affect Results & Data Vital Signs (Past 12 Hours) Vital Signs Temp Pulse Pulse Resp BP BP Pulse Ox 01/10/19 11:20 36.3 C L 18 159/83 H 94 01/10/19 08:00 58 L 01/10/19 07:15 36.7 C 59 L 18 159/94 H 97 01/10/19 03:35 165/70 H 01/10/19 03:25 36.8 C 59 L 18 174/93 H 93
[2019-01-10] MEDS: LISINOPRIL 10 MG TAB PO SCH (13:08)
[2019-01-11] MEDS: LISINOPRIL 10 MG TAB PO SCH (07:59)
[2019-01-11] MEDS: ATORVASTATIN 40 MG TAB PO SCH (07:59)
[2019-01-11] MEDS: ASPIRIN 81 MG ECTAB PO SCH (07:59)
[2019-01-11] MEDS: ENOXAPARIN INJ 30 MG/0.3 ML SYR SQ SCH (07:59)
--- NOTE | 2019-01-11 13:22 | Hospitalist Progress Note ---
Date of Service January 11, 2019 Assessment & Plan (1) TIA (transient ischemic attack): Slurred speech: Transient Ischemic Attack Parkinsonian symptoms Ambulatory Dysfunction - As per ED notes on 01/08/19 "The patient is an 83 year old female who presents to the Emergency Room with complaints of constant neurological symptoms that started this evening, about 3 hours ago. The patient states she getting ready for bed when she noticed she was having trouble moving her legs and could not speak" -No acute intracranial abnormality on CT head imaging -admitting nocturnalist gave patient high dose aspirin 324 in early AM of 01/09/19 -patient reports that her speech is improving as of 01/09/19, she is unclear as to the timing of some mouth asymmetry (perhaps she noticed this in the past 1 year) -aspirin 81 mg daily starting on 01/10/19, started atorvastatin - continue as outpatient - There is no sonographic evidence of hemodynamically significant stenosis in the right or left carotid arterial system on ultrasound carotids. MRI/MRA brain has not find evidence for acute brain injury but neurology suspects that patient had Transient Ischemic Attack which did not show up on the MRI imaging versus Parkinsonian symptoms as concerning for shuffling gait -as per physical therapy notes, patient will need inpatient physical therapy because of right foot drag -neurology also would like to re-evaluate patient after the stint on physical rehab on outpatient basis on whether or not any need for Parkinson's medication such as Sinemet or any form of dopamine therapy -upgraded patient from observation to full admission due to ambulatory dysfunction which may require case management help to request for inpatient rehabilitation. Patient and her sons did indicate interest for [facility] for physical therapy. -01/11/19: discharge to [facility] for inpatient physical rehabilitation Hypertension -ED presentation blood pressure was 189/98 but this has trended down to systolic between 150s to 160s -AM blood pressure of 01/09/19 was 143/81 -resume home dose lisinopril 10 mg starting on 01/10/19 and monitor blood pressure -01/11/19: blood pressure controlled on lisinopril, continue Elevated troponins -patient incidentally found to have elevated troponins on this admission without chest pain; initial and second troponin stable as 0.068 with third troponin as 0.093 and then stabilized with troponins of 0.07 x 2 -echocardiogram (TTE) performed and intrepreted as normal by metal sprayer protective coating -as per cardiology Dr Benton: The troponins are only borderline elevated and are persistently elevated with no rise or decrease which leads me away from the diagnosis of acute coronary syndrome. Her echocardiogram is normal. She does have some conduction abnormalities with a bifascicular block but has not been symptomatic with syncope or dizziness. -has been in normal sinus rhythm throughout hospital stay -Dr. Benton agrees with neurology recommendations of outpatient ZIO patch for history of Paroxysmal atrial fibrillation and also for intermittent heart block DVT ppx: Lovenox 30 mg daily while in the hospital alisa Nichols, contact #[phone]. alisa Bautista [phone] Discharge Diagnosis Slurred speech (resolved); Transient Ischemic Attack (suspected); Parkinsonian symptoms; Ambulatory Dysfunction;Hypertension, elevated troponins Discharge Instructions Patient is be discharge to to [facility] for physical rehabilitation Patient will be on new discharge medications of aspirin 81 mg daily and atorvastatin 40 mg daily Appointments Cardiology and Neurology recommends outpatient ZIO patch for history of Paroxysmal atrial fibrillation and also for intermittent heart block This an be arranged by primary care doctor 01/14/2019 11:00 AM Provider Hermelinda Judge MD Department [facility] Neurology clinic 02/22/2019 11:20 AM Provider Panda Brady MD Department Neurology [facility] Subjective Patient feels good. no chest pain. no abdomen pain. no vomiting. no lightheadedness. no dizziness. Physical Exam Constitutional: comfortable Eyes: EOM intact bilaterally ENMT: external ear and nose normal, oropharynx normal Neck: normal visual inspection Respiratory: normal respiratory effort, lungs clear to auscultation Cardiovascular: RRR, no murmur, no edema Gastrointestinal (Abdomen): normal bowel sounds, soft, nontender, no hepatosp lenomegaly Musculoskeletal: Head/Neck/Chest: normocephalic and head atraumatic Neurologic: PERRL, EOMI, accommodation nl, no face palsy, no dysarthria Psychiatric: A+Ox3, euthymic affect Results & Data Vital Signs (Past 12 Hours) Vital Signs Temp Pulse Pulse Pulse Resp BP BP 01/11/19 12:55 36.7 C 64 76 14 124/72 137/82 01/11/19 12:26 36.7 C 64 14 124/72 01/11/19 08:00 74 01/11/19 07:28 37.0 C 68 18 137/82 01/11/19 05:06 36.4 C L 74 20 175/83 H Pulse Ox 01/11/19 12:55 94 01/11/19 12:26 94 01/11/19 08:00 01/11/19 07:28 95 01/11/19 05:06 93
[2019-01-11] MEDS ORDERED: STROKE PATIENT DISCHARGE STA (13:42)
--- NOTE | 2019-01-11 13:44 | Discharge Summary ---
Date of Service January 11, 2019 Admission HPI Per Admitting Provider History obtained from patient and records. Medical history significant for hypertension. Last night, patient noted left leg weakness, trouble getting her words out. No chest pain, no S OB. No headache. May have happened before but not lasting as long . Improving symptoms at the ER. 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 Admission Exam Per Admitting Provider GENERAL: Comfortable, pleasant, looks younger for stated age, no respiratory distress SKIN: Normal color, warm HEENT: [place] palpebral conjunctivae, no ptosis, subtle left-sided upper lip asym metry noted on speech (chronic as per patient), moist buccal mucosa NECK : Supple, no tenderness CHEST : CTA, no tenderness HEART : RRR, no obvious murmurs ABDOMEN: Some distention, nontender EXTREMITIES : Minimal LE swelling, no LE tenderness, no other conspicuous deformities noted NEUROLOGIC : Coherent, no resting facial asymmetry, no pronator drift, gait and stance not assessed Principal Diagnosis Slurred speech (resolved); Transient Ischemic Attack (suspected); Parkinsonian symptoms; Ambulatory Dysfunction;Hypertension, elevated troponins Discharge Exam Constitutional comfortable Eyes EOM intact bilaterally ENMT external ear and nose normal, oropharynx normal Neck normal visual inspection Respiratory normal respiratory effort, lungs clear to auscultation Cardiovascular RRR, no murmur, no edema Gastrointestinal (Abdomen) normal bowel sounds, soft, nontender, no hepatosplenomegaly Musculoskeletal Head/Neck/Chest: normocephalic and head atraumatic Neurologic PERRL, EOMI, accommodation nl, no face palsy, no dysarthria Psychiatric A+Ox3, euthymic affect Discharge Data Allergies Allergy/AdvReac Type Severity Reaction Status Date / Time No Known Allergies Allergy Unverified 01/08/19 23:30 Consultations 01/09/19 01:36 ED Decision to Admit Stat 01/09/19 05:07 Consult Case Management - Discharge Planning Routine Consult Neurology Routine 01/10/19 07:27 Consult Cardiology Routine Ordered Studies 01/08/19 23:26 CT head/brain wo con Urgent 01/09/19 05:07 MR brain wo con Routine 01/09/19 05:08 MR angio head wo con Routine 01/09/19 17:14 US carotid doppler BI Routine Hospital Course (1) TIA (transient ischemic attack): Slurred speech: Transient Ischemic Attack Parkinsonian symptoms Ambulatory Dysfunction - As per ED notes on 01/08/19 "The patient is an 83 year old female who presents to the Emergency Room with complaints of constant neurological symptoms that started this evening, about 3 hours ago. The patient states she getting ready for bed when she noticed she was having trouble moving her legs and could not speak" -No acute intracranial abnormality on CT head imaging -admitting nocturnalist gave patient high dose aspirin 324 in early AM of 01/09/19 -patient reports that her speech is improving as of 01/09/19, she is unclear as to the timing of some mouth asymmetry (perhaps she noticed this in the past 1 year) -aspirin 81 mg daily starting on 01/10/19, started atorvastatin - continue as outpatient - There is no sonographic evidence of hemodynamically significant stenosis in the right or left carotid arterial system on ultrasound carotids. MRI/MRA brain has not find evidence for acute brain injury but neurology suspects that patient had Transient Ischemic Attack which did not show up on the MRI imaging versus Parkinsonian symptoms as concerning for shuffling gait -as per physical therapy notes, patient will need inpatient physical therapy because of right foot drag -neurology also would like to re-evaluate patient after the stint on physical rehab on outpatient basis on whether or not any need for Parkinson's medication such as Sinemet or any form of dopamine therapy -upgraded patient from observation to full admission due to ambulatory dysfunction which may require case management help to request for inpatient rehabilitation. Patient and her sons did indicate interest for [facility] for physical therapy. -01/11/19: discharge to [facility] for inpatient physical rehabilitation Hypertension -ED presentation blood pressure was 189/98 but this has trended down to systolic between 150s to 160s -AM blood pressure of 01/09/19 was 143/81 -resume home dose lisinopril 10 mg starting on 01/10/19 and monitor blood pressure -01/11/19: blood pressure controlled on lisinopril, continue Elevated troponins -patient incidentally found to have elevated troponins on this admission without chest pain; initial and second troponin stable as 0.068 with third troponin as 0.093 and then stabilized with troponins of 0.07 x 2 -echocardiogram (TTE) performed and intrepreted as normal by air gun operator -as per cardiology Dr Benton: The troponins are only borderline elevated and are persistently elevated with no rise or decrease which leads me away from the diagnosis of acute coronary syndrome. Her echocardiogram is normal. She does have some conduction abnormalities with a bifascicular block but has not been symptomatic with syncope or dizziness. -has been in normal sinus rhythm throughout hospital stay -Dr. Benton agrees with neurology recommendations of outpatient ZIO patch for his tory of Paroxysmal atrial fibrillation and also for intermittent heart block DVT ppx: Lovenox 30 mg daily while in the hospital alisa Nichols, contact #[phone]. alisa Bautista [phone] Discharge Diagnosis Slurred speech (resolved); Transient Ischemic Attack (suspected); Parkinsonian symptoms; Ambulatory Dysfunction;Hypertension, elevated troponins Discharge Instructions Patient is be discharge to to [facility] for physical rehabilitation Patient will be on new discharge medications of aspirin 81 mg daily and atorvastatin 40 mg daily Appointments Cardiology and Neurology recommends outpatient ZIO patch for history of Paroxysmal atrial fibrillation and also for intermittent heart block This an be arranged by primary care doctor 01/14/2019 11:00 AM Provider Hermelinda Judge MD Department [facility] Neurology clinic 02/22/2019 11:20 AM Provider Panda Brady MD Department Neurology [facility] Total Time Total Time Spent Total Time Spent (In Minutes): 40 minutes Total Time Includes: Examination of the Patient, Discharge Planning, Medication Reconciliation and Communication With Other Providers Discharge Plan Discharge Items Patient Disposition: Transfer Inpatient Rehab Fac Reason For Visit: TIA Discharge Diagnosis: Slurred speech (resolved); Transient Ischemic Attack (suspected); Parkinsonian symptoms; Ambulatory Dysfunction;Hypertension, elevated troponins Condition: Good Discharge Goals: Improve disease control Activity: Per 'Additional Instructions' section Non-emergency contact: Primary Care Provider Call non-emergency contact if: you have any medication questions Follow-up/Referrals: Hermelinda Judge MD [Primary Care Provider] - Diet: Heart Healthy Addtl Provider Instructions: Discharge Instructions Patient is be discharge to to [facility] for physical rehabilitation Patient will be on new discharge medications of aspirin 81 mg daily and atorvastatin 40 mg daily Appointments Cardiology and Neurology recommends outpatient ZIO patch for history of Paroxysmal atrial fibrillation and also for intermittent heart block This an be arranged by primary care doctor 01/14/2019 11:00 AM Provider Hermelinda Judge MD Department [facility] Neurology clinic 02/22/2019 11:20 AM Provider Panda Brady MD Department Neurology [facility] Prescriptions: New aspirin [Ecotrin Low Strength] 81 mg Tablet,Delayed Release (Dr/Ec) 81 mg PO QAM 30 Days Qty: 30 RF: 0 atorvastatin 40 mg Tablet 40 mg PO QAM 30 Days Qty: 30 RF: 0 Continued lisinopril 10 mg tablet 10 mg PO DAILY RF: 0 Stand-Alone Forms: [facility] Discharge Orders: Discharge Order (Routine); Ordered 01/11/19 Ordered By: Son Boland Skilled Items Patient informed of condition?: Yes DNR: Yes Discharge Level of Care: Acute rehab Communicable Disease: No Discharge Prognosis: Stable Admission Data Admit Date/Time: 01/10/19 11:44 Attending Provider: Son Boland Admit Provider: Brayan Gage Primary Care Provider: Hermelinda Judge Other Providers: Brayan Gage ; Panda Brady ; Alcides Benton Service: Telemetry Other Interventions: Discharge Summary Assessment (RN) Last Done: 01/11/19 12:55
== END 2019-01-11 15:26 | DRG 69 ==
LOC: ED 22:04 → 2N 22:04

== ENCOUNTER 2019-05-16 11:44 | Inpatient (IN) ==
[2019-05-16 13:24] LABS: Basophils # (auto) 0.01 K/uL (0-0.2); Basophils % (auto) 0.2 %; Eosinophils # (auto) 0.07 K/uL (0-0.5); Eosinophils % (auto) 1.2 %; Hematocrit (blood only) 43.3 % (37-47); Immature Granulocytes # (auto) 0.01 K/uL (0.00-0.02); Immature Granulocytes % (auto) 0.2 %; Lymphocytes # (auto) 0.89 K/uL (1.2-3.4); Lymphocytes % (auto) 14.9 %; Mean Corpuscular Hemoglobin 27.8 pg (25-34); Mean Corpuscular Hgb Conc 32.3 g/dL (32-36); Mean Corpuscular Volume 85.9 fL (80-100); Mean Platelet Volume 10.3 fL (7.4-10.4); Monocytes # (auto) 0.68 K/uL (0.11-0.59); Monocytes % (auto) 11.4 %; Neutrophils # (auto) 4.33 K/uL (1.4-6.5); Neutrophils % (auto) 72.1 %; Platelet Count 198 K/uL (130-400); RDW Coefficient of Variation 15.2 % (11.5-14.5); RDW Standard Deviation 48.2 fL (36.4-46.3); Red Blood Count 5.04 M/uL (4.2-5.4); White Blood Count 5.99 K/uL (4.8-10.8)
[2019-05-16 13:29] LABS: Base Excess VBG 0.1 mEq/L; HCO3 VBG 24 mmol/L; PCO2 VBG 36 mmHg (38-50); PO2 VBG 26 mmHg; pH VBG 7.44 (7.36-7.41)
[2019-05-16 13:34] LABS: Alanine Aminotransferase 26 U/L (12-78); Albumin Level 3.8 gm/dl (3.4-5.0); Aspartate Aminotransferase 22 U/L (15-37); Bilirubin Direct 0.2 mg/dl (0-0.2); Blood Urea Nitrogen 14 mg/dl (7-18); Calcium 9.2 mg/dl (8.5-10.1); Carbon Dioxide 29 mmol/L (21-32); Chloride 104 mmol/L (98-107); Est GFR (Non-African American) 82.8; Glucose 87 mg/dl (70-99); Lipase 137 U/L (73-393); Magnesium 2.1 mg/dl (1.8-2.4); Potassium 3.9 mmol/L (3.5-5.1); Sodium 138 mmol/L (136-145)
[2019-05-16 13:35] LABS: Partial Thromboplastin Ratio 0.9; Partial Thromboplastin Time 24.2 Seconds (21.0-31.0); Prothrombin Time 10.5 Seconds (9.0-12.0)
[2019-05-16 13:35] LABS: Oxygen Saturation VBG < 60.0 %
[2019-05-16 13:44] LABS: Alkaline Phosphatase 60 U/L (45-117); Bilirubin,Total 0.9 mg/dl (0.2-1); NT Pro B Type Natriuretic Pept 142 pg/ml (0-1800); Total Protein 7.9 gm/dl (6.4-8.2); Troponin I 0.475 ng/ml (0-0.045)
[2019-05-16] MEDS: SODIUM CHLORIDE 0.9% 500 ML IV SCH ×2 (13:45→18:02)
--- NOTE | 2019-05-16 13:57 | XRay Report ---
XR pelvis 1-2V routine HISTORY: 84 years-old Female fall acute pelvic pain status post fall COMPARISON: None available TECHNIQUE: AP view of the pelvis FINDINGS: Demineralized appearance of the bones. 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 No acute fracture, dislocation or avascular necrosis. Degenerative changes noted about the spin e. Soft tissues are unremarkable. IMPRESSION: No acute fracture or dislocation. The above report was generated using voice recognition software. It may contain grammatical, syntax o r spelling errors. Electronically signed by: Chris Copeland M.D. 05/16/2019 1:55 PM
--- NOTE | 2019-05-16 13:58 | XRay Report ---
XR chest 1V portable HISTORY: 84 years-old Female ams acutely altered mental status COMPARISON: None available TECHNIQUE: Portable AP view of the chest FINDINGS: Cardiac silhouette is enlarged. Mild biapical pleural thickening. No pneumothorax, pleural effusion, focal airspace consolidation or overt pulmonary edema. Degenerative changes of the shoulders and spin e. IMPRESSION: No acute process. The above report was generated using voice recognition software. It may contain grammatical, syntax o r spelling errors. Electronically signed by: Chris Copeland M.D. 05/16/2019 1:56 PM
[2019-05-16 14:35] LABS: Appearance Urine Clear (Clear); Bilirubin Urine Negative (Negative); Blood Urine Negative (Negative); Color Urine Yellow; Glucose Urine UA Negative (Negative); Ketones Urine Negative (Negative); Leukocyte Esterase Urine Negative (Negative); Nitrite Urine Negative (Negative); Protein Urine Negative (Negative); Specific Gravity Urine 1.011 (1.000-1.030); Urobilinogen Urine Negative (Negative); pH Urine 5.5 (4.5-7.5)
[2019-05-16] MEDS ORDERED: IOVERSOL 100ml IV PRN (14:39)
--- NOTE | 2019-05-16 14:53 | CT Scan Report ---
CT head/brain wo con CLINICAL HISTORY: 84 years-old Female with ams. Acutely altered mental status TECHNIQUE: Multiple axial CT images of the head were obtained without contrast. A dose lowering tech nique was utilized adhering to the principles of ALARA. COMPARISON: CT cervical spine of same day, head CT 01/09/2019 FINDINGS: No acute intracranial hemorrhage, midline shift, intracranial mass, hydrocephalus, territorial ischem ia or abnormal extra-axial collection. Age-related involutional changes. Patchy white matter hypodens ities suggest chronic microvascular ischemic disease. Cerebral vascular calcifications noted. The calvarium is intact. Mild leftward bowing and spurring of the nasal septum. The paranasal sinuses , mastoid air cells, and middle ear cavities are clear. IMPRESSION: No acute intracranial abnormality. The above report was generated using voice recognition software. It may contain grammatical, syntax o r spelling errors. Electronically signed by: Chris Copeland M.D. 05/16/2019 2:51 PM
--- NOTE | 2019-05-16 14:56 | CT Scan Report ---
CT cervical spine wo con CT DOSE: 882.61 mGy.cm CLINICAL HISTORY: 84 years-old Female with ams. Acutely altered mental status with neck pain COMPARISON: Head CT of same day TECHNIQUE: Multiple axial CT images of the cervical spine were obtained without contrast. A dose low ering technique was utilized adhering to the principles of ALARA. FINDINGS: Demineralized appearance of the bones. Mild straightening of the normal cervical lordosis. Grade 1 an terolisthesis C4 on C5 is likely secondary to long-standing facet arthrosis. There is severe multilev el facet arthropathy with multilevel mild disc space narrowing and chondrocalcinosis. Small posterior disc osteophyte complex formations are noted at multiple levels. Degenerative bony fusion of the rig ht C2-C3 facets. Mastoid air cells appear clear. Evaluation of the central canal and neuroforamina is better set for MRI. No high-grade central canal stenosis identified. Soft tissues are unremarkable. Thyroid goiter. Pleural parenchymal scarring of the lung apices. No pneumothorax. IMPRESSION: No acute cervical spine fracture or subluxation. The above report was generated using voice recognition software. It may contain grammatical, syntax o r spelling errors. Electronically signed by: Chris Copeland M.D. 05/16/2019 2:55 PM
[2019-05-16 15:09] LABS: Influenza A virus by PCR Neg for Influ A (Neg); Influenza B virus by PCR Neg for Influ B (Neg)
--- NOTE | 2019-05-16 15:12 | CT Scan Report ---
ABDOMEN AND PELVIS CT WITH IV CONTRAST CT DOSE: 356.81 mGy.cm HISTORY: Acute upper abdominal pain abdominal pain TECHNIQUE: Multiaxial CT images of the abdomen and pelvis were performed following the IV administrat ion of 94 cc of Optiray 320, A dose lowering technique was utilized adhering to the principles of [place]. COMPARISON STUDY: None. FINDINGS: Mild subsegmental bibasilar atelectasis/scarring. No pneumatosis or pneumoperitoneum. Study is mildly motion degraded. Imaged inferior cardiac chambers are moderately enlarged with coronary arterial amelia cifications. Unremarkable gallbladder. No biliary ductal dilation. The liver, spleen and adrenal glan ds are unremarkable. Mild to moderate generalized pancreatic atrophy. Patency of the hepatic and port al veins. Possible small exophytic cyst of the inferior pole right kidney. No renal or ureteral calcu li or obstructive uropathy. Partial distention the bladder with mild wall thickening. Hysterectomy. N o adnexal mass lesion. Tortuosity of the descending thoracic aorta with moderate mixed plaque. No ane urysm. No adenopathy. Colonic diverticulosis without acute diverticulitis. Normal appendix. There were several prominent ai r and fluid-filled loops of small bowel within the lower abdomen and pelvis measuring up to approxima tely 2.7 cm transversely. No transition point. No ascites or mesenteric inflammation. Diastases recti . Soft tissues are within normal limits. Degenerative changes of the spine, pelvis and hips. IMPRESSION: 1. No bowel obstruction or bowel wall thickening. 2. Normal appendix. 3. Multiple prominent air and fluid-filled loops of small bowel within the lower abdomen and pelvis a re suggestive of a nonspecific enteritis or ileus. Correlate clinically. 4. Colonic diverticulosis without acute diverticulitis. 5. Additional findings as above. Electronically signed by: Chris Copeland M.D. 05/16/2019 3:10 PM
--- NOTE | 2019-05-16 15:31 | Emergency Department Note ---
Entered by Nataliya Babin acting as a scribe for History of Present Illness General Chief complaint: Abdominal Pain Stated complaint: DOC REFERRED FROM [facility] Time Seen by Provider: 05/16/19 12:33 Source: patient and family ([id number]) History of Present Illness Onset (ago): day(s) 2 Location: abdomen (lower) Radiation: extremity (left lower) Pain Consistency: + other (persistent) Maximum Pain Intensity: 8 Quality: + other (discomfort) Associated symptoms: + denies other symptoms (vomiting, shortness of breath, headache, fevers, numbness, back pain, incontinence) and + other (nausea, diarrhea) The patient is a 84 year old female that is presenting to the Emergency Room with complaints of persistent abdominal pain that started 2 days ago. The patient is a poor historian secondary to possible dementia. The patient reports that she had diarrhea two days ago with some associated nausea. She denies any vomiting. She states that her lower abdomen and left leg have been hurting since that time. She notes that she has difficulty lifting her left leg secondary to the pain. She denies any fever, shortness of breath, headaches, incontinence, numbness, or back pain. She denies having any surgeries recently. She notes that she is status post a hysterectomy. The patient reports that she recently saw a provider about swelling in her legs but she denies having started any medications at that time. She states that she nearly fell recently but was caught by her . The patient is able to name where she is but not the year or the president's name. The patient's asxefckz-zv-ryc provided some additional context. Her nrfpeeer-yc-qxd reports that the patient is a resident at [facility], where she has lived since a suspected TIA in 12/2018. Her xjkxsuef-va-djo notes that the patient's 2 weeks ago, contradicting the patient's story about falling recently. Her dizzrmjw-vs-bjm states that the patient has been increasingly confused over the past two months, but she states that the patient is aware her . Her ianyiyol-kz-egh notes that the patient has seen a neurologist but notes that she is not sure when her last appointment was. Her [id number] states that the patient does not have a formal dementia diagnosis. Home Medications Home Medications Medication Instructions Recorded Confirmed Type lisinopril 10 mg PO DAILY 01/08/19 05/16/19 History aspirin 81 mg PO DAILY 05/16/19 05/16/19 History atorvastatin 40 mg PO DAILY 05/16/19 05/16/19 History furosemide 20 mg PO DAILY 05/16/19 05/16/19 History potassium chloride 10 meq PO DAILY 05/16/19 05/16/19 History Allergies Allergy/AdvReac Type Severity Reaction Status Date / Time No Known Allergies Allergy Unverified 05/16/19 12:51 Past Med/Surg History Medical History Hypertension Hypertension (Acute) Non-ST elevation [place] (NSTEMI) (Acute) TIA (transient ischemic attack) Troponin level elevated Family History Other Family history non-contributory Social History Preferred Language: Cambodian Communication Ability: Effective Produce Wrapper Required: No Beliefs That Will Affect Care: None marital status: Current Living Situation: Spouse Feels Safe at Home: Yes Smoking Status: Never smoker Hx Alcohol Use: No Hx Substance Use: No Review of Systems See HPI for pertinent positives & negatives. and A total of 10 systems reviewed and were otherwise negative Physical Exam Vital Signs Vital Signs - 24 hr 05/16/19 12:16 05/16/19 12:47 05/16/19 13:44 Temperature 36.6 C Temperature Source Oral Pulse Rate 107 H Pulse Rate [Apical] 85 Respiratory Rate 17 16 Respiratory Effort / Characteristics Non-Labored Respiratory Depth Normal Respiratory Pattern Regular Blood Pressure 139/83 Blood Pressure [Left Arm] 173/93 H Blood Pressure Mean 101 Blood Pressure Mean [Left Arm] 119 Blood Pressure Position Sitting Pulse Oximetry 95 97 97 Oxygen Delivery Method Room Air Room Air Room Air Sepsis Recent Fever Within 48 Hours No Sepsis New/Unexplained Change in Mental Status No Sepsis Action Taken by Nursing No Action Required GENERAL: She is oriented to person, place, and time. She appears well-developed and well-nourished. She does not appear distressed. HENT: Exam performed. - Head: Normocephalic and atraumatic. - Right Ear: External ear normal. No mastoid tenderness. - Left Ear: External ear normal. No mastoid tenderness. - Mouth/Throat: The oropharynx is clear and moist. No trismus in the jaw. No dental abscesses or uvula swelling. No oropharyngeal exudate or tonsillar abscesses. EYES: Conjunctivae and EOM are normal. Pupils are equal, round, and reactive to light. Right eye exhibits no discharge. Left eye exhibits no discharge. No scleral icterus. NECK: Normal range of motion. Neck supple. No JVD present. No spinous process tenderness present. No carotid bruit present. No rigidity. No tracheal deviation and normal range of motion present. No Brudzinski's sign and no Kernig's sign noted. CV: Normal rate, regular rhythm, normal heart sounds and intact distal pulses. There is no peripheral edema. Palpable radial pulses bue. PULM/CHEST: Effort normal and breath sounds normal. No respiratory distress. No stridor. She has no wheezes. She has no rales. Chest Wall: She exhibits no tenderness. ABD: The abdomen is soft. Bowel sounds are normal. She has no distension. No mass is present. There is no rebound, no guarding, no Lara's sign and no tenderness at McBurney's point. Rovsig negative. Pain in right lower, left lower, and suprapubic regions. MUSC/SKEL: Normal range of motion. There is no peripheral edema, tenderness or deformity. Weakness in bilateral lower extremity. Pelvis is stable. LYMPH: No cervical adenopathy. NEURO: She is alert and oriented x1. Weakness in bilateral lower extremity. Sensation is grossly intact. SKIN: Skin is warm and dry. She is not diaphoretic. PSYCH: She has a normal mood and affect. Her behavior is normal. Judgment and thought content normal. Course Course 1235: Past records reviewed. Patient was seen in ED in December,. She has had multiple neurological work ups in the past including CTs and MRIs. Patient was admitted in December for possible TIA and elevated troponin. She was seen by Dr. Brady, Neurology, and diagnosed with a TIA. Patient was also diagnosed with possible emerging Parkinsons Disease with cognitive impairment vs Lewy body dementia. She had an MRI and an MRA in December which were within normal limits Carotid US in December was within normal limits as well. 1238:The patient was evaluated in room C02. A complete history and physical examination was performed. EKG shows a sinus rhythm at a rate of 66bpm. UT 138, QRS 144, QTC 503. LBBB present, sgarbossa negative. No ectopy noted. When compared to 01/08/2019, LBBB is new. Patient had a bifascicular block on previous EKG. 1315: I spoke with the patient's son regarding the patient's current work up in the ED today. 1454: I discussed the patients case with Dr. Brunson, Cardiology, who states that given patients clinical history and cognitive impairments he does not think anticoagulant with Heparin is necessary at this time. He states that it does not sound like she is having a cardiac ischemic event currently. If admitted, her troponin could be trended. He does not believe that her symptoms are due to cardiac ischemia. I agree with his assessment. 1519: Vital signs are stable. Patient continues to be confused. Imaging of head and neck are within normal limits. Imaging of the abdomen shows ileus. Patient will be kept in the hospital for further evaluation. I discussed that patient's case with Dr. Landon [facility], who will evaluate the patient for further management and care. Administered Medications Sodium Chloride (Nss) 500 mls @ 125 mls/hr IV .Q4H CHAD Stop: 06/15/19 12:59 Last Admin: 05/16/19 13:45 Dose: 125 mls/hr Documented by: [id number] Ioversol (Optiray 320 100ml) 94 ml IV ONCE PRN PRN Reason: Interaction Checking Stop: 05/20/19 14:38 Last Admin: 05/16/19 14:39 Dose: 94 ml Documented by: [id number] Medical Decision Making Medical Records Attestation: I reviewed the patient's medical records. Home Medications Current Medication List: was personally reviewed by me Laboratory Data Attestation: I reviewed the patient's lab results. Result diagrams: 05/16/19 13:05 05/16/19 13:05 Lab Results 05/16/19 05/16/19 05/16/19 Range/Units 13:05 13:05 13:05 WBC 5.99 (4.8-10.8) K/uL RBC 5.04 (4.2-5.4) M/uL Hgb 14.0 (12.0-16.0) g/dL Hct 43.3 (37-47) % MCV 85.9 (80-100) fL MCH 27.8 (25-34) pg MCHC 32.3 (32-36) g/dL RDW Std Deviation 48.2 H (36.4-46.3) fL RDW Coeff of Reece 15.2 H (11.5-14.5) % Plt Count 198 (130-400) K/uL MPV 10.3 (7.4-10.4) fL Immature Gran % (Auto) 0.2 % Neut % (Auto) 72.1 % Lymph % (Auto) 14.9 % Ray % (Auto) 11.4 % Eos % (Auto) 1.2 % Baso % (Auto) 0.2 % Immature Gran # (Auto) 0.01 (0.00-0.02) K/uL Neut # (Auto) 4.33 (1.4-6.5) K/uL Lymph # (Auto) 0.89 L (1.2-3.4) K/uL Ray # (Auto) 0.68 H (0.11-0.59) K/uL Eos # (Auto) 0.07 (0-0.5) K/uL Baso # (Auto) 0.01 (0-0.2) K/uL PT 10.5 (9.0-12.0) Seconds INR 1.0 (0.9-1.1) APTT 24.2 (21.0-31.0) Seconds PTT Ratio 0.9 VBG pH (7.36-7.41) VBG pCO2 (38-50) mmHg VBG pO2 mmHg VBG HCO3 mmol/L VBG O2 Saturation % VBG Base Excess mEq/L Barometric Pressure mm/Hg Sodium 138 (136-145) mmol/L Potassium 3.9 (3.5-5.1) mmol/L Chloride 104 (98-107) mmol/L Carbon Dioxide 29 (21-32) mmol/L Anion Gap 5.0 (3-11) BUN 14 (7-18) mg/dl Creatinine 0.62 (0.6-1.2) mg/dl Est Cr Clr Drug Dosing Not Reportable Est GFR ( Amer) 96.0 Est GFR (Non-Af Amer) 82.8 BUN/Creatinine Ratio 23.0 H (10-20) Glucose 87 (70-99) mg/dl Lactate (0.4-2.0) mmol/L Calcium 9.2 (8.5-10.1) mg/dl Magnesium 2.1 (1.8-2.4) mg/dl Total Bilirubin 0.9 (0.2-1) mg/dl Direct Bilirubin 0.2 (0-0.2) mg/dl AST 22 (15-37) U/L ALT 26 (12-78) U/L Alkaline Phosphatase 60 (45-117) U/L Ammonia (11-32) umol/L Troponin I 0.475 H* (0-0.045) ng/ml NT-Pro-B Natriuret Pep 142 (0-1800) pg/ml Total Protein 7.9 (6.4-8.2) gm/dl Albumin 3.8 (3.4-5.0) gm/dl Lipase 137 (73-393) U/L Urine Color Urine Appearance (Clear) Urine pH (4.5-7.5) Ur Specific Ermine (1.000-1.030) Urine Protein (Negative) Urine Glucose (UA) (Negative) Urine Ketones (Negative) Urine Blood (Negative) Urine Nitrite (Negative) Urine Bilirubin (Negative) Urine Urobilinogen (Negative) Ur Leukocyte Esterase (Negative) Influenza Type A (PCR) (Neg) Influenza Type B (PCR) (Neg) 05/16/19 05/16/19 05/16/19 Range/Units 13:05 13:05 13:15 WBC (4.8-10.8) K/uL RBC (4.2-5.4) M/uL Hgb (12.0-16.0) g/dL Hct (37-47) % MCV (80-100) fL MCH (25-34) pg MCHC (32-36) g/dL RDW Std Deviation (36.4-46.3) fL RDW Coeff of Reece (11.5-14.5) % Plt Count (130-400) K/uL MPV (7.4-10.4) fL Immature Gran % (Auto) % Neut % (Auto) % Lymph % (Auto) % Ray % (Auto) % Eos % (Auto) % Baso % (Auto) % Immature Gran # (Auto) (0.00-0.02) K/uL Neut # (Auto) (1.4-6.5) K/uL Lymph # (Auto) (1.2-3.4) K/uL Ray # (Auto) (0.11-0.59) K/uL Eos # (Auto) (0-0.5) K/uL Baso # (Auto) (0-0.2) K/uL PT (9.0-12.0) Seconds INR (0.9-1.1) APTT (21.0-31.0) Seconds PTT Ratio VBG pH 7.44 H (7.36-7.41) VBG pCO2 36 L (38-50) mmHg VBG pO2 26 mmHg VBG HCO3 24 mmol/L VBG O2 Saturation < 60.0 % VBG Base Excess 0.1 mEq/L Barometric Pressure 735.6 mm/Hg Sodium (136-145) mmol/L Potassium (3.5-5.1) mmol/L Chloride (98-107) mmol/L Carbon Dioxide (21-32) mmol/L Anion Gap (3-11) BUN (7-18) mg/dl Creatinine (0.6-1.2) mg/dl Est Cr Clr Drug Dosing Est GFR ( Amer) Est GFR (Non-Af Amer) BUN/Creatinine Ratio (10-20) Glucose (70-99) mg/dl Lactate 1.0 (0.4-2.0) mmol/L Calcium (8.5-10.1) mg/dl Magnesium (1.8-2.4) mg/dl Total Bilirubin (0.2-1) mg/dl Direct Bilirubin (0-0.2) mg/dl AST (15-37) U/L ALT (12-78) U/L Alkaline Phosphatase (45-117) U/L Ammonia < 10.0 L (11-32) umol/L Troponin I (0-0.045) ng/ml NT-Pro-B Natriuret Pep (0-1800) pg/ml Total Protein (6.4-8.2) gm/dl Albumin (3.4-5.0) gm/dl Lipase (73-393) U/L Urine Color Urine Appearance (Clear) Urine pH (4.5-7.5) Ur Specific Ermine (1.000-1.030) Urine Protein (Negative) Urine Glucose (UA) (Negative) Urine Ketones (Negative) Urine Blood (Negative) Urine Nitrite (Negative) Urine Bilirubin (Negative) Urine Urobilinogen (Negative) Ur Leukocyte Esterase (Negative) Influenza Type A (PCR) (Neg) Influenza Type B (PCR) (Neg) 05/16/19 05/16/19 Range/Units 14:20 14:30 WBC (4.8-10.8) K/uL RBC (4.2-5.4) M/uL Hgb (12.0-16.0) g/dL Hct (37-47) % MCV (80-100) fL MCH (25-34) pg MCHC (32-36) g/dL RDW Std Deviation (36.4-46.3) fL RDW Coeff of Reece (11.5-14.5) % Plt Count (130-400) K/uL MPV (7.4-10.4) fL Immature Gran % (Auto) % Neut % (Auto) % Lymph % (Auto) % Ray % (Auto) % Eos % (Auto) % Baso % (Auto) % Immature Gran # (Auto) (0.00-0.02) K/uL Neut # (Auto) (1.4-6.5) K/uL Lymph # (Auto) (1.2-3.4) K/uL Ray # (Auto) (0.11-0.59) K/uL Eos # (Auto) (0-0.5) K/uL Baso # (Auto) (0-0.2) K/uL PT (9.0-12.0) Seconds INR (0.9-1.1) APTT (21.0-31.0) Seconds PTT Ratio VBG pH (7.36-7.41) VBG pCO2 (38-50) mmHg VBG pO2 mmHg VBG HCO3 mmol/L VBG O2 Saturation % VBG Base Excess mEq/L Barometric Pressure mm/Hg Sodium (136-145) mmol/L Potassium (3.5-5.1) mmol/L Chloride (98-107) mmol/L Carbon Dioxide (21-32) mmol/L Anion Gap (3-11) BUN (7-18) mg/dl Creatinine (0.6-1.2) mg/dl Est Cr Clr Drug Dosing Est GFR ( Amer) Est GFR (Non-Af Amer) BUN/Creatinine Ratio (10-20) Glucose (70-99) mg/dl Lactate (0.4-2.0) mmol/L Calcium (8.5-10.1) mg/dl Magnesium (1.8-2.4) mg/dl Total Bilirubin (0.2-1) mg/dl Direct Bilirubin (0-0.2) mg/dl AST (15-37) U/L ALT (12-78) U/L Alkaline Phosphatase (45-117) U/L Ammonia (11-32) umol/L Troponin I (0-0.045) ng/ml NT-Pro-B Natriuret Pep (0-1800) pg/ml Total Protein (6.4-8.2) gm/dl Albumin (3.4-5.0) gm/dl Lipase (73-393) U/L Urine Color Yellow Urine Appearance Clear (Clear) Urine pH 5.5 (4.5-7.5) Ur Specific Ermine 1.011 (1.000-1.030) Urine Protein Negative (Negative) Urine Glucose (UA) Negative (Negative) Urine Ketones Negative (Negative) Urine Blood Negative (Negative) Urine Nitrite Negative (Negative) Urine Bilirubin Negative (Negative) Urine Urobilinogen Negative (Negative) Ur Leukocyte Esterase Negative (Negative) Influenza Type A (PCR) Neg for Influ A (Neg) Influenza Type B (PCR) Neg for Influ B (Neg) Imaging Data Radiologist's Impression: Radiology results as stated below per my review and the radiologist's interpretation: XR pelvis 1-2V routine HISTORY: 84 years-old Female fall acute pelvic pain status post fall COMPARISON: None available TECHNIQUE: AP view of the pelvis FINDINGS: Demineralized appearance of the bones. 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 No acute fracture, dislocation or avascular necrosis. Degenerative changes noted about the spine. Soft tissues are unremarkable. IMPRESSION: No acute fracture or dislocation. The above report was generated using voice recognition software. It may contain grammatical, syntax or spelling errors. Electronically signed by: Chris Copeland M.D. 05/16/2019 1:55 PM XR chest 1V portable HISTORY: 84 years-old Female ams acutely altered mental status COMPARISON: None available TECHNIQUE: Portable AP view of the chest FINDINGS: Cardiac silhouette is enlarged. Mild biapical pleural thickening. No pneumothorax, pleural effusion, focal airspace consolidation or overt pulmonary edema. Degenerative changes of the shoulders and spine. IMPRESSION: No acute process. The above report was generated using voice recognition software. It may contain grammatical, syntax or spelling errors. Electronically signed by: Chris Copeland M.D. 05/16/2019 1:[address] head/brain wo con CLINICAL HISTORY: 84 years-old Female with ams. Acutely altered mental status TECHNIQUE: Multiple axial CT images of the head were obtained without contrast. A dose lowering technique was utilized adhering to the principles of ALARA. COMPARISON: CT cervical spine of same day, head CT 01/09/2019 FINDINGS: No acute intracranial hemorrhage, midline shift, intracranial mass, hydrocephalus, territorial ischemia or abnormal extra-axial collection. Age- related involutional changes. Patchy white matter hypodensities suggest chronic microvascular ischemic disease. Cerebral vascular calcifications noted. The calvarium is intact. Mild leftward bowing and spurring of the nasal septum. The paranasal sinuses, mastoid air cells, and middle ear cavities are clear. IMPRESSION: No acute intracranial abnormality. The above report was generated using voice recognition software. It may contain grammatical, syntax or spelling errors. Electronically signed by: Chris Copeland M.D. 05/16/2019 2:[address] cervical spine wo con CT DOSE: 882.61 mGy.cm CLINICAL HISTORY: 84 years-old Female with ams. Acutely altered mental status with neck pain COMPARISON: Head CT of same day TECHNIQUE: Multiple axial CT images of the cervical spine were obtained without contrast. A dose lowering technique was utilized adhering to the principles of ALARA. FINDINGS: Demineralized appearance of the bones. Mild straightening of the normal cervical lordosis. Grade 1 anterolisthesis C4 on C5 is likely secondary to long-standing facet arthrosis. There is severe multilevel facet arthropathy with multilevel mild disc space narrowing and chondrocalcinosis. Small posterior disc osteophyte complex formations are noted at multiple levels. Degenerative bony fusion of the right C2-C3 facets. Mastoid air cells appear clear. Evaluation of the central canal and neuroforamina is better set for MRI. No high-grade central canal stenosis identified. Soft tissues are unremarkable. Thyroid goiter. Pleural parenchymal scarring of the lung apices. No pneumothorax. IMPRESSION: No acute cervical spine fracture or subluxation. The above report was generated using voice recognition software. It may contain grammatical, syntax or spelling errors. Electronically signed by: Chris Copeland M.D. 05/16/2019 2:55 PM ABDOMEN AND PELVIS CT WITH IV CONTRAST CT DOSE: 356.81 mGy.cm HISTORY: Acute upper abdominal pain abdominal pain TECHNIQUE: Multiaxial CT images of the abdomen and pelvis were performed following the IV administration of 94 cc of Optiray 320, A dose lowering technique was utilized adhering to the principles of ALARA. COMPARISON STUDY: None. FINDINGS: Mild subsegmental bibasilar atelectasis/scarring. No pneumatosis or pneumoperitoneum. Study is mildly motion degraded. Imaged inferior cardiac april bers are moderately enlarged with coronary arterial calcifications. Unremarkable gallbladder. No biliary ductal dilation. The liver, spleen and adrenal glands are unremarkable. Mild to moderate generalized pancreatic atrophy. Patency of the hepatic and portal veins. Possible small exophytic cyst of the inferior pole right kidney. No renal or ureteral calculi or obstructive uropathy. Partial distention the bladder with mild wall thickening. Hysterectomy. No adnexal mass lesion. Tortuosity of the descending thoracic aorta with moderate mixed plaque. No aneurysm. No adenopathy. Colonic diverticulosis without acute diverticulitis. Normal appendix. There were several prominent air and fluid-filled loops of small bowel within the lower abdomen and pelvis measuring up to approximately 2.7 cm transversely. No transition point. No ascites or mesenteric inflammation. Diastases recti. Soft tissues are within normal limits. Degenerative changes of the spine, pelvis and hips. IMPRESSION: 1. No bowel obstruction or bowel wall thickening. 2. Normal appendix. 3. Multiple prominent air and fluid-filled loops of small bowel within the lower abdomen and pelvis are suggestive of a nonspecific enteritis or ileus. Correlate clinically. 4. Colonic diverticulosis without acute diverticulitis. 5. Additional findings as above. Electronically signed by: Chris Copeland M.D. 05/16/2019 3:10 PM ECG Data Attestation: I personally reviewed and interpreted this ECG as follows: Indication: + abdominal pain Rate (beats per minute): 66 Rhythm: + sinus rhythm ECG Intervals/blocks: + Left bundle branch block (sgarbossa negative) ECG Findings: + Other (UT 138, QRS 144, QTC 503 ); no PACs and no PVCs Comparison ECG Date: from (01/08/2019) Change: the following changes noted (LBBB is new. On previous, she had a bifascicular block) Blood Pressure Blood Pressure Findings: Elevated blood pressure Blood Pressure Disposition: Referred to patients primary care provider DONNA Narrative 1235: Past records reviewed. Patient was seen in ED in December,. She has had multiple neurological work ups in the past including CTs and MRIs. Patient was admitted in December for possible TIA and elevated troponin. She was seen by Dr. Stewart tinoco, Neurology, and diagnosed with a TIA. Patient was also diagnosed with possible emerging Parkinsons Disease with cognitive impairment vs Lewy body dementia. She had an MRI and an MRA in December which were within normal limits Carotid US in December was within normal limits as well. 1238:The patient was evaluated in room C02. A complete history and physical examination was performed. EKG shows a sinus rhythm at a rate of 66bpm. UT 138, QRS 144, QTC 503. LBBB present, sgarbossa negative. No ectopy noted. When compared to 01/08/2019, LBBB is new. Patient had a bifascicular block on previous EKG. 1315: I spoke with the patient's son regarding the patient's current work up in the ED today. 1454: I discussed the patients case with Dr. Brunson, Cardiology, who states that given patients clinical history and cognitive impairments he does not think anticoagulant with Heparin is necessary at this time. He states that it does not sound like she is having a cardiac ischemic event currently. If admitted, her troponin could be trended. He does not believe that her symptoms are due to cardiac ischemia. I agree with his assessment. 1519: Vital signs are stable. Patient continues to be confused. Imaging of head and neck are within normal limits. Imaging of the abdomen shows ileus. Patient will be kept in the hospital for further evaluation. I discussed that patient's case with Quin Venegas, who will evaluate the patient for further management and care. Impression & Plan TIA (transient ischemic attack), Troponin level elevated, Ileus, Dementia Discharge Plan Visit Data Chief Complaint: Abdominal Pain Stated Complaint: DOC REFERRED FROM [facility] ED Provider: Clint Contreras Discharge Problem: TIA (transient ischemic attack), Troponin level elevated, Ileus, Dementia Forms Stand Alone Forms: My [facility] Prescriptions Prescriptions: No Action lisinopril 10 mg tablet 10 mg PO DAILY RF: 0 atorvastatin 40 mg tablet 40 mg PO DAILY RF: 0 potassium chloride 10 mEq capsule, extended release 10 meq PO DAILY RF: 0 aspirin 81 mg tablet,delayed release (DR/EC) 81 mg PO DAILY RF: 0 furosemide 20 mg tablet 20 mg PO DAILY RF: 0 Referrals Referrals: Hermelinda Judge MD [Primary Care Provider] - Discharge Problem: Dementia Qualifiers: Dementia type: unspecified type Dementia behavioral disturbance: without behavioral disturbance Qualified Code(s): F03.90 - Unspecified dementia without behavioral disturbance The scribe's documentation has been prepared under my direction and personally reviewed by me in its entirety. I confirm that the note above accurately reflects all work, treatment, procedures, and medical decision making performed by me.
--- NOTE | 2019-05-16 16:25 | History & Physical Report ---
Date of Service May 16, 2019 Assessment & Plan (1) Ileus: This is an 84yo F from [facility] [place] assisted [facility] with a PMH of HTN, paroxysmal atrial fibrillation, Parkinson's disease, history of TIA and other medical problems listed below who presents with LLE pain and abdominal pain and was found to have elevated troponin level and ileus. -CT abd/pelvis with multiple prominent air and fluid-filled loops of small bowel within the lower abdomen and pelvis are suggestive of a nonspecific enteritis or ileus. No bowel obstruction or bowel wall thickening -Keep NPO for now with ice chips/sips, gentle IV fluids -KUB in AM to reassess (2) Pain of left lower extremity: Noted diffuse pain a few days ago, difficult to move/lift -No decreased strength or ROM on exam, neurovascularly intact, trace equal swelling -Bilateral doppler ultrasound to assess for DVT -PT/OT evaluation (3) Troponin level elevated: Initial troponin elevated at 0.475 -EKG with NSR with LAD and LBBB (known). CXR without acute process -No chest pain or evidence of ACS at this time -ED physician discussed with Dr. Brunson, who states that given patients clinical history and cognitive impairments, does not think anticoagulant with heparin is necessary at this time -Monitor on telemetry, trend troponin (4) Parkinsons disease: Recently diagnosed by Dr. Brady in January 2019 -Was not yet started on Sinemet due to concern it would worsen cognitive symptoms -Has neuro follow up scheduled for beginning of June -Unclear if confusion is due to acute event of losing 3 weeks ago -Evaluate tomorrow and consider neurology consult (5) Hypertension: Mildly elevated at 156/83 -Continue lisinopril. Add additional PRN agent if needed (6) Paroxysmal atrial fibrillation: Asymptomatic. Recent holter monitor with Monitor revealed no definitive atrial fibrillation with paroxysmal nonsustained SVT possible atrial tachycardia -Also with second degree type 1 AV block noted. Per cardiology note, avoid beta blockers/AV neo blockers (7) History of TIA (transient ischemic attack): Continue baby aspirin DVT Ppx: SQ heparin Code status: DNR per discussion with patient PCP: Nu Dispo: Admitted to med/tele. Discharge planning ordered. Patient seen in collaboration with Dr. Landon. Please see addendum. History of Present Illness Chief Complaint: abdominal pain, confusion Primary Care Provider: Hermelinda Judge MD This is an 84yo F from [facility] [place] assisted [facility] with a PMH of HTN, paroxysmal atrial fibrillation, Parkinson's disease, history of TIA and other medical problems listed below who presents with left lower extremity pain and abdominal pain. Patient is a poor historian due to possible dementia as well as loss of 3 weeks ago. States that she developed left lower extremity pain as well as abdominal pain 2 days ago. Reported diarrhea to the ED physician along with some nausea but son states he was told by [place] staff that she had a large BM this morning and no recent diarrhea. Patient no longer endorsing abdominal pain. No nausea and has been eating well. Leg pain is "all over" and makes it difficult for her to lift her legs to ambulate or get into a car. Patient ambulates with walker. Denies fever, chills, lightheadedness, visual changes, chest pain, palpitations, shortness of breath or dysuria. Notes some lower extremity swelling within the last month and was seen by PCP a few weeks ago and started on Lasix 20 mg with potassium supplement. Son states swelling has improved since then. Today, patient is afebrile and hemodynamically stable. No leukocytosis or electrolyte abnormalities. Kidney function at baseline. Initial troponin elevated at 0.475. EKG with NSR with LAD and LBBB (known). CXR without acute process. CT abd/pelvis with multiple prominent air and fluid-filled loops of small bowel within the lower abdomen and pelvis are suggestive of a nonspecific enteritis or ileus. No bowel obstruction or bowel wall thickening. Colonic diverticulosis without acute diverticulitis. Of note, patient was admitted in December 2018 for TIA and possible Parkinsonian symptoms. Followed up with Dr. Brady of neurology group in January and was diagnosed with mild bradykinetic Parkinson's with some rigidity and emerging cognitive impairment but Dr. Brady did not want to start her on Sinemet for fear of making the cognitive issues worse. The plan was to reassess her in 4 months (June 2019) and then decide about trying some low-dose Sinemet at that time. Allergies Allergy/AdvReac Type Severity Reaction Status Date / Time No Known Allergies Allergy Unverified 05/16/19 12:51 Home Medications Home Medications Medication Instructions Recorded Confirmed Type lisinopril 10 mg PO DAILY 01/08/19 05/16/19 History acetaminophen 1,000 mg PO Q8H PRN 05/16/19 05/16/19 History aspirin 81 mg PO DAILY 05/16/19 05/16/19 History atorvastatin 40 mg PO DAILY 05/16/19 05/16/19 History docusate sodium 100 mg PO DAILY 05/16/19 05/16/19 History furosemide 20 mg PO DAILY 05/16/19 05/16/19 History multivitamin 1 tab PO DAILY 05/16/19 05/16/19 History potassium chloride 10 meq PO DAILY 05/16/19 05/16/19 History Past Med/Surg History Medical History (Updated 05/16/19 @ 18:26 by Briseyda Haider PA-C) History of TIA (transient ischemic attack) Hypertension (Acute) Parkinsons disease Paroxysmal atrial fibrillation Troponin level elevated (Acute) Surgical History History of hysterectomy History of knee surgery Family History (Updated 05/16/19 @ 17:07 by Briseyda Haider PA-C) Other Stroke Social History Preferred Language: Faroese Communication Ability: Effective Recreation Programmer Required: No Beliefs That Will Affect Care: None marital status: / Current Living Situation: Personal Care Facility Current Living Situation Comment: the [place] Other Information That Helps Us Care for You: No Feels Safe at Home: Yes Safety Concerns: Feels Safe At This Time Smoking Status: Never smoker Hx Alcohol Use: No Hx Substance Use: No Review of Systems Review of Systems: At least ten systems reviewed and negative except as noted in the HPI. Physical Exam Physical Exam: General Appearance: WD/WN, vitals as above, NAD, sitting up on edge of bed, pleasant Head: normocephalic, atraumatic Eyes: normal inspection, PERRL, conjunctivae normal, anicteric sclerae ENT: external ear and nose normal, oropharynx normal Neck: trachea midline, no thyromegaly normal visual inspection Respiratory: normal respiratory effort, lungs clear to auscultation, no wheeze, rales, rhonchi. Normal insp/exp effort, no accessory muscle use Cardiovascular: regular rate, rhythm, no murmur, normal peripheral pulses. Vessels: no JVD or carotid bruit Chest: normal inspection of chest Abdomen/GI: normal bowel sounds, soft, nontender, no hepatosplenomegaly Extremities/Musculoskelatal: no cyanosis or clubbing. Trace BLE edema, non- tender to palpation, neurovascularly intact. Extremities motor strength 5/5. Neurologic: PERRL, EOMI, accommodation nl, no face palsy but bradykinetic with decreased expression, no dysarthria. CN's II-XI intact bilaterally and moves all extremities Psychiatric: A+Ox 3, not to situation, crying intermittently about loss of Skin: no rashes, normal color, warm/dry. +maculopapular rash on dorsal aspect of foot, no open lesions Results & Data Vital Signs (Past 12 Hours) Vital Signs Temp Pulse Pulse Resp BP BP Pulse Ox 05/16/19 15:00 66 16 169/83 H 96 05/16/19 13:44 85 16 173/93 H 97 05/16/19 12:47 97 05/16/19 12:16 36.6 C 107 H 17 139/83 95 Laboratory Results Short CBC 05/16/19 Range/Units 13:05 WBC 5.99 (4.8-10.8) K/uL Hgb 14.0 (12.0-16.0) g/dL Hct 43.3 (37-47) % Plt Count 198 (130-400) K/uL BMP 05/16/19 13:05 Sodium 138 Potassium 3.9 Chloride 104 Carbon Dioxide 29 BUN 14 Creatinine 0.62 Glucose 87 Calcium 9.2 Cardiac Enzymes 05/16/19 Range/Units 13:05 Troponin I 0.475 H* (0-0.045) ng/ml Liver Function 05/16/19 Range/Units 13:05 Total Bilirubin 0.9 (0.2-1) mg/dl Direct Bilirubin 0.2 (0-0.2) mg/dl AST 22 (15-37) U/L ALT 26 (12-78) U/L Alkaline Phosphatase 60 (45-117) U/L Albumin 3.8 (3.4-5.0) gm/dl Urine 05/16/19 Range/Units 14:20 Urine Color Yellow Urine Appearance Clear (Clear) Urine pH 5.5 (4.5-7.5) Ur Specific [place] 1.011 (1.000-1.030) Urine Protein Negative (Negative) Urine Glucose (UA) Negative (Negative) Diagnostic Findings Head CT: IMPRESSION: No acute intracranial abnormality. Cervical spine CT: IMPRESSION: No acute cervical spine fracture or subluxation. CXR: IMPRESSION: No acute process. CT abd/pelvis: IMPRESSION: 1. No bowel obstruction or bowel wall thickening. 2. Normal appendix. 3. Multiple prominent air and fluid-filled loops of small bowel within the lower abdomen and pelvis are suggestive of a nonspecific enteritis or ileus. Correlate clinically. 4. Colonic diverticulosis without acute diverticulitis. 5. Additional findings as above. Pelvis XR: IMPRESSION: No acute fracture or dislocation. ECG Rhythm: normal sinus Findings: + LBBB and + left axis deviation Code Status & VTE Plan VTE Prophylaxis Plan VTE Prophylaxis will be ordered: Yes Supervising Physician Co-Signing Physician Notes Attending addendum: The patient was seen and examined in medical floor She is an 84yo F from [facility] with a PMH of HTN, paroxysmal atrial fibrillation, Parkinson's disease, history of TIA and other medical problems in H&P presents with LLE pain and abdominal pain and was found to have mildly elevated troponin level and ileus. Complaints to have left leg pain Denies any abdominal discomfort and/or distention On examination No apparent distress at rest Afebrile and hemodynamically stable with blood pressure on the upper side Chest-clear to auscultate bilaterally Heart-S1-S2, 2/6 ejection systolic murmur over aortic area Abdomen-slightly distended, soft, nontender, bowel sounds sluggish Extremities-trace edema bilaterally No acute arthritis noted in any of the joints of the lower extremities especially on the left side REPAIR SPECIALIST-alert, awake and oriented Admission labs and imaging studies reviewed Left lower extremity pain without any significant arthropathy Will get ultrasound to rule out DVTs Incidental finding of IBS, give her n.p.o. and cautious amount of IV fluid Incidental elevation of troponin without any cardiac symptoms We will trend cardiac enzymes Agree with assessment and plan as outlined above by ASHISH Soares DR (1) Hypertension Hypertension type: unspecified Qualified Code(s): I10 - Essential (primary) h ypertension
[2019-05-16] MEDS ORDERED: POLYETHYLENE (MIRALAX) 17 GM PACK PO PRN (17:47)
[2019-05-16] MEDS ORDERED: ACETAMINOPHEN 500 MG TAB PO PRN (18:37)
[2019-05-16] MEDS: HEPARIN SOD 5,000 UNIT/0.5 ML VIAL SQ SCH (21:58)
--- NOTE | 2019-05-16 21:59 | Ultrasound Report ---
BILATERAL LOWER EXTREMITY VENOUS DOPPLER HISTORY: Bilateral leg pain and edema. COMPARISON STUDY: None. FINDINGS: There is normal compressibility, flow, and augmentation within the bilateral lower extremit y deep venous systems. IMPRESSION: No DVT within the right or left lower extremity. Electronically signed by: Jonas Hoffman M.D. 05/16/2019 9:58 PM
[2019-05-17 01:44] LABS: Hematocrit (blood only) 39.7 % (37-47); Hemoglobin 13.1 g/dL (12.0-16.0); Mean Corpuscular Hemoglobin 28.1 pg (25-34); Mean Platelet Volume 9.7 fL (7.4-10.4); Platelet Count 180 K/uL (130-400); RDW Coefficient of Variation 15.1 % (11.5-14.5); RDW Standard Deviation 46.4 fL (36.4-46.3); Red Blood Count 4.67 M/uL (4.2-5.4); White Blood Count 5.67 K/uL (4.8-10.8)
[2019-05-17 02:08] LABS: BUN Creatinine Ratio 20.9 (10-20); Calcium 8.9 mg/dl (8.5-10.1); Creatinine Clr Calc Pharmacy 72.8 ml/min; Est GFR (African American) 101.7; Est GFR (Non-African American) 87.7; Potassium 3.5 mmol/L (3.5-5.1)
[2019-05-17 02:17] LABS: Troponin I 0.477 ng/ml (0-0.045)
[2019-05-17] MEDS: HEPARIN SOD 5,000 UNIT/0.5 ML VIAL SQ SCH ×3 (05:35→21:18)
--- NOTE | 2019-05-17 06:53 | Hospitalist Progress Note ---
Date of Service May 17, 2019 Assessment & Plan (1) Ileus: This is an 84yo F from [facility] [facility] with a PMH of HTN, paroxysmal atrial fibrillation, Parkinson's disease, history of TIA and other medical problems listed below who presents with LLE pain and abdominal pain and was found to have elevated troponin level and ileus. -CT abd/pelvis with multiple prominent air and fluid-filled loops of small bowel within the lower abdomen and pelvis are suggestive of a nonspecific enteritis or ileus. No bowel obstruction or bowel wall thickening -Keep NPO for now with ice chips/sips, gentle IV fluids -KUB in AM to reassess (2) Altered mental status: Will check cultures, UA (3) Pain of left lower extremity: Noted diffuse pain a few days ago, difficult to move/lift -No decreased strength or ROM on exam, neurovascularly intact, trace equal swelling -Bilateral doppler ultrasound to assess for DVT-No DVT within the right or left lower extremity. -PT/OT evaluation (4) Troponin level elevated: Initial troponin elevated at 0.475 -EKG with NSR with LAD and LBBB (known). CXR without acute process -No chest pain or evidence of ACS at this time -ED physician discussed with Dr. Brunson, who states that given patients clinical history and cognitive impairments, does not think anticoagulant with heparin is necessary at this time -Monitor on telemetry, trend troponin (5) Parkinsons disease: Recently diagnosed by Dr. Brady in January 2019 -Was not yet started on Sinemet due to concern it would worsen cognitive symptoms -Has neuro follow up scheduled for beginning of June -Unclear if confusion is due to acute event of losing 3 weeks ago (6) Hypertension: -Continue lisinopril. Add additional PRN agent if needed (7) Paroxysmal atrial fibrillation: Asymptomatic. Recent holter monitor revealed no definitive atrial fibrillation with paroxysmal nonsustained SVT possible atrial tachycardia -Also with second degree type 1 AV block noted. Per cardiology note, avoid beta blockers/AV neo blockers (8) History of TIA (transient ischemic attack): Continue baby aspirin DVT Ppx: SQ heparin Code status: DNR per discussion with patient PCP: Judge Dispo: Back to [facility] on DC Labs checked ROS-Offers no reliable history Physical Exam Gen-AAO x 1, NAD, Afebrile, Agitated, ?Sundowning Head-NCAT, EOMI, PERRLA, Anicteric Sclera, No Posterior Pharyngeal Erythema Neck-Supple, No JVD, No Thyromegaly, No Masses, No LAD, No Bruits Lungs-Clear to Auscultation Bilaterally, No Rales, No Rhonchi, No Wheezing, No Crepitus Chest-No S4, +S1, +S2, No S3, No Murmurs, No Rubs, No Gallops, No Ectopy Abdomen-Soft, Bowel Sounds Present, Non Tender, Non Distended, No Hepatomegaly, No Splenomegaly, No Palpable Masses, No Rebound, No Rigidity, No Guarding Musculoskeletal-Full Range of Motion Bilaterally, No CVAT Extremities-No Cyanosis, No Clubbing, No Edema Nuero-Cranial Nerves II-XII grossly intact, Motor WNL, DTRs WNL, Strength WNL, Non Focal Psych-Uncooperative and agitated Results & Data Vital Signs (Past 12 Hours) Vital Signs Temp Pulse Pulse Resp BP Pulse Ox 05/17/19 05:04 36.3 C L 64 16 138/73 94 05/16/19 23:35 61 05/16/19 23:11 145/81 H 05/16/19 22:43 36.4 C L 64 16 179/81 H 96 05/16/19 19:15 36.6 C 73 16 168/92 H 94 (1) Hypertension Hypertension type: unspecified Qualified Code(s): I10 - Essential (primary) hypertension
[2019-05-17] MEDS ORDERED: INFLUENZA VACCINE HIGH DOSE 65+ 0.5 ML SYR IM ONE (07:00)
[2019-05-17] MEDS ORDERED: PNEUMOCOCCAL ADMINISTRATION CHARGE ONE (07:00)
[2019-05-17] MEDS ORDERED: PNEUMOCOCCAL POLYSACCHARIDES 25 MCG/0.5 ML VIAL/SYR IM ONE (07:00)
[2019-05-17] MEDS ORDERED: INFLUENZA ADMINISTRATION CHARGE ONE (07:00)
--- NOTE | 2019-05-17 07:55 | XRay Report ---
KUB CLINICAL HISTORY: Ileus. FINDINGS: An AP, portable, supine abdominal radiograph is correlated with abdominal CT dated 05/16/20 19. There is mild gaseous distention of the small bowel loops without radiographic evidence of high-g rade obstruction. No evidence of intraperitoneal free air is seen on this supine image. Excreted IV c ontrast fills the bladder. There are pelvic phleboliths. The skeletal structures are osteopenic. Lumb osacral spondylosis is observed. IMPRESSION: There is no radiographic evidence of high-grade bowel obstruction. Electronically signed by: Chapo Frey M.D. 05/17/2019 7:53 AM
[2019-05-17] MEDS: DOCUSATE SODIUM 100 MG CAP PO SCH (09:01)
[2019-05-17] MEDS: ASPIRIN 81 MG ECTAB PO SCH (09:02)
[2019-05-17] MEDS: POTASSIUM CHLORIDE 10 MEQ TABCR PO SCH (09:03)
[2019-05-17] MEDS: MULTIVITAMIN TAB PO SCH (09:06)
[2019-05-17] MEDS: LISINOPRIL 10 MG TAB PO SCH (09:06)
[2019-05-17] MEDS: ATORVASTATIN 40 MG TAB PO SCH (09:07)
[2019-05-17] MEDS: FUROSEMIDE 20 MG TAB PO SCH (09:08)
--- NOTE | 2019-05-17 13:45 | Neurology Consultation ---
Date of Consultation May 17, 2019 Assessment & Plan (1) Altered mental status: 1. continue aspirin 81 mg previous stroke 2. parkinson's disease - better assess in clinic has appointment in June for re evaluation 3. possible element of depression- defer to PCP for further evaluation- psychiatry recommend outpatient support and grief counselling 4. PT/OT speech for discharge needs 5. correct lyte abnormalities Supervising Physician Co-Signing Physician Notes I have seen and discussed above patient with Dr Panda Brady, neurology I know Mrs. Nichols from my outpatient visits. She is a woman who has mild unilateral Parkinson's disease and is getting increasingly cognitively impaired over the time to the point that I was very reluctant to use Sinemet in her case for fear that it would precipitate more confusion or agitation and it was unlikely to help the very mild motor deficits that I saw at that point She is now here in the hospital for some leg edema has been more confused probably due to environmental changes and on examination looks pretty much the same with a mild left-sided jose-Parkinson's tremor and a somewhat digressive and "concrete" mental status is pretty good memory for her upcoming appointments etc. Family members were in the room and were concerned about "normal pressure hydrocephalus" but I reassured him that she has had a CT scan that shows normal- sized ventricles are at least ventricular dilatation is not disproportionate to the degree of cortical atrophy and that this diagnosis simply is not one we are going to pursue here At this time I am scheduled to see her back in my office in June and I am going to suggest that we make no changes in her medications I will see her at that point and consider perhaps a trial of some Aricept although I do not think that is going to help very much but it might clear up some of her cognitive impairment to a sufficient degree that we may in the future than be more willing to try some Sinemet should her movement disorder become more problematic of Neurology is going to sign off the case unless her other neurologic issues that her attendings or the family wants us to address at this point Panda Brady MD History of Present Illness Reason for Consultation: AMS. Parkinson's Requesting Physician: Son Nugent DO Attending Physician: Son Nugent DO History of Present Illness Toshia is an 84 year old female who resides at [facility] [place] [facility] with a PMH of HTN, PAF, PD, history of TIA who presents with left lower extremity pain and abdominal pain. She lost her 3 weeks ago but states she lives with a friend. She developed left lower extremity pain as well as abdominal pain 2 days ago and had diarrhea. She currently denies any abdominal pain. She uses a walker at baseline. She states her bilateral lower extremities swelling within the last month and was started on Lasix 20 mg with potassium supplement by her PCP. She did have an elevated troponin 0.475. She had an admission on December 2018 for TIA and possible Parkinsonian symptoms of bradykinetic Parkinson's with some rigidity and emerging cognitive impairment but Dr. Brady did not want to start her on Sinemet for fear of making the cognitive issues worse she has follow up already scheduled in June for re evaluation by Dr Brady. denies CP, SOB, abdominal pain, one sided weakness,numbness tingling, N, V, swallowing issues, vision changes falls. Allergies Allergy/AdvReac Type Severity Reaction Status Date / Time No Known Allergies Allergy Unverified 05/16/19 12:51 Home Medications Home Medications Medication Instructions Recorded Confirmed Type lisinopril 10 mg PO DAILY 01/08/19 05/16/19 History acetaminophen 1,000 mg PO Q8H PRN 05/16/19 05/16/19 History aspirin 81 mg PO DAILY 05/16/19 05/16/19 History atorvastatin 40 mg PO DAILY 05/16/19 05/16/19 History docusate sodium 100 mg PO DAILY 05/16/19 05/16/19 History furosemide 20 mg PO DAILY 05/16/19 05/16/19 History multivitamin 1 tab PO DAILY 05/16/19 05/16/19 History potassium chloride 10 meq PO DAILY 05/16/19 05/16/19 History Patient History Medical History History of TIA (transient ischemic attack) Hypertension (Acute) Parkinsons disease Paroxysmal atrial fibrillation Troponin level elevated (Acute) Surgical History History of hysterectomy History of knee surgery Family History Other Stroke Social History Preferred Language: American Communication Ability: Effective Hay Farmer Required: No Beliefs That Will Affect Care: Hinduism (Anglican) marital status: / Current Living Situation: Personal Care Facility Current Living Situation Comment: the [facility] Other Information That Helps Us Care for You: No Feels Safe at Home: Yes Safety Concerns: Feels Safe At This Time Smoking Status: Never smoker Hx Alcohol Use: No Hx Substance Use: No Physical Exam Physical Exam: Physical Exam: Constitutional: appearance nourished, healthy and normal Ears, Nose, Mouth and Throat: mucous membranes moist, no injection and skin normal, eyes normal Cardiovascular: normal S-1 and S-2 and regular rate and rhythm Respiratory: course breath sounds Musculoskeletal: minimal peripheral edema and good distal pulses Skin: no stigmata of neurocutaneous disease noted and normal and intact Eyes: extraocular muscles intact (EOMI) and pupils equal, round and reactive to light (PERRL) NEUROLOGIC EXAMINATION: Mental status: Alert and interactive Oriented to 2019, [facility], [facility] Oriented to person Speech fluent with no evidence of aphasia Cranial Nerves smile eye brow raise symmetric Reflexes: Deep tendon reflexes were symmetrical and graded 2/5. Sensory: intact to vibration light cool touch and vibration Coordination: finger to nose no bipass, rapid motor hand movement intract Gait/Stance: Posture lying in bed, fine resting tremor, no cogwheeling Motor: Negative for pronator drift of out stretched arms with eyes closed. 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 5/5, hip flex plantar flex ext 5/5 bialterally Results & Data Vital Signs (Past 12 Hours) Vital Signs Temp Pulse Pulse Resp BP Pulse Ox 05/17/19 11:35 36.5 C 85 16 143/82 H 92 05/17/19 08:31 36.7 C 67 12 146/87 H 95 05/17/19 07:28 85 05/17/19 05:04 36.3 C L 64 16 138/73 94 Laboratory Results Abnormal lab results 05/16/19 05/17/19 05/17/19 Range/Units 18:58 01:24 01:24 RDW Std Deviation 46.4 H (36.4-46.3) fL RDW Coeff of Reece 15.1 H (11.5-14.5) % Creatinine 0.52 L (0.6-1.2) mg/dl BUN/Creatinine Ratio 20.9 H (10-20) Glucose 101 H (70-99) mg/dl Troponin I 0.485 H* 0.477 H* (0-0.045) ng/ml 05/17/19 05/17/19 Range/Units 10:07 12:55 RDW Std Deviation (36.4-46.3) fL RDW Coeff of Reece (11.5-14.5) % Creatinine (0.6-1.2) mg/dl BUN/Creatinine Ratio (10-20) Glucose (70-99) mg/dl Troponin I 0.484 H* 0.467 H* (0-0.045) ng/ml Diagnostic Findings CT head-No acute intracranial abnormality. CXR-Cardiac silhouette is enlarged. Mild biapical pleural thickening. No pneumothorax, pleural effusion, focal airspace consolidation or overt pulmonary edema. Degenerative changes of the shoulders and spine. CT c spine- Demineralized appearance of the bones. Mild straightening of the normal cervical lordosis. Grade 1 anterolisthesis C4 on C5 is likely secondary to long-standing facet arthrosis. There is severe multilevel facet arthropathy with multilevel mild disc space narrowing and chondrocalcinosis. Small posterior disc osteophyte complex formations are noted at multiple levels. Degenerative bony fusion of the right C2-C3 facets. Mastoid air cells appear clear. Evaluation of the central canal and neuroforaminal is better set for MRI. No high-grade central canal stenosis identified. Soft tissues are unremarkable. Thyroid goiter. Pleural parenchymal scarring of the lung apices. No pneumothorax.
--- NOTE | 2019-05-17 14:16 | Psychiatric Consultation ---
Date of Consultation May 17, 2019 Impression / Recommendations Impression 84-year-old female admitted medically on 05/16/19 due to confusion and abdominal pain. She is being treated for an ileus as well as being provided with medical work-up to determine possible etiology of altered mental status. Psychiatric consultation requested to determine if the passing of the patient's 3 weeks ago may be causing mood symptoms, possibly contributing to her altered state. PHQ-9 performed by psychiatric nurse liaison, patient scoring a 4/27 (indicating "minimal symptoms", with recommendation for support and education). Pt answered "not at all" to question #9 regarding thoughts of self-harm/suicide. There is no evidence at this time to suggest that any mood concerns are related to an underlying psychiatric condition beyond the realm of traditional bereavement. Pt is denying symptoms consistent with even major depressive disorder, and denies any history of SI or previous suicide attempts. Not only is patient uninterested in medications to target mood or anxiety concerns, they are not recommended at this time due to lack of evidence to suggest a clear psychiatric disorder we would be treating. Pt was offered therapy, and she even mentioned local grief counseling groups she may be interested in. Psychiatric nurse liaison will look into grief counseling options near [place] for patient's consideration. No further psychiatric recommendations at this time, mood concerns can be monitored routinely at PCP visits. Please reach out to our service with any additional questions. Dr. Rina Choudhury was directly involved in review and discussion of the patient's case and participated in medical decision making regarding treatment recommendations. Risk Factors Assessment Do You Have Access To A Gun?: No Psych History Identifying Data 84-year-old female admitted medically on 05/16/19 after presenting to the ED with reports of abdominal pain and confusion. Patient was admitted for treatment of an ileus and workup for elevated troponin and altered mental status. Psychiatric consultation was requested to evaluate patient for altered mental status, considering the recent of her . Information is gathered from hospital documentation and the patient herself, the combination of which is considered to be reliable. Chief Complaint "I guess one of the things that brought me in was that they thought I had a mini stroke...well, eh... No, I guess that's what brought me in the last time." History of Present Illness Toshia Nichols is an 84-year-old female admitted medically on 05/16/2019 after presenting to the ED with confusion and abdominal pain. She was admitted for further workup regarding elevated troponin and confusion, as well as an ileus. Past medical history includes hypertension, paroxysmal atrial fibrillation, Parkinson's disease, and history of recent TIA. Psychiatric consultation was requested to evaluate the patient for confusion, questioning if the recent passing of patient's may be in any way related to her confusion. Patient was cooperative with assessment by psychiatric nurse liaison, and completed a PHQ-9 which indicated only "minimal symptoms." She also completed a Mini-Cog, scoring a total of 3 due to poorly completed Clock Drawing. Patient had denied any significant concerns related to the presence of depressive symptoms at that time. She was cooperative with psychiatric evaluation by this provider. Patient states today that she is "not bad." When asked to explain her understanding of why she is in the hospital, the patient states "I guess one of the things that brought me in was that they thought I had a mini stroke...well, eh... No, I guess that's what brought me in the last time." She corrects herself, stating that she believes she was brought in for "swollen legs." When asked about her recent thought processes, the patient does admit that she has been a bit more confused lately. She especially notes difficulty with long-term memory. Patient admits to this provider that there has been "a lot of stress since my had just ." She follows up this comment by stating "but we do have good friends and neighbors, who got me through this." Patient does indicate that the passing of her "was not sudden, we were experiencing a decline in his health for some time now." Patient was asked questions related to possible depressive symptoms, she admits to chronically low energy and that "I'm not a good sleeper at all", but denies any other symptoms consistent with depression. She states that she continues routine self-care and has not noticed anhedonia, limited motivation, or inability to attend to ADLs. Pt states that she has not history of psychiatric treatment. She denies history of SI or suicide attempts in the past. She is interested in attending grief counseling groups, which she states have been advertised in her local paper. Pt states she is not interested in additional medications, stating she does not feel they are necessary. Pt denies other needs or concerns presently. Past Psychiatric History Previous Psych History: Denies Current Psychiatric Diagnosis: None Outpatient Services: None Previous Psych Admissions: Denies Do You Have Access To A Gun?: No History of Previous Suicide Attempt: No Past Medication Trials: None Allergies Allergy/AdvReac Type Severity Reaction Status Date / Time No Known Allergies Allergy Unverified 05/16/19 12:51 Home Medications Home Medications Medication Instructions Recorded Confirmed Type lisinopril 10 mg PO DAILY 01/08/19 05/16/19 History acetaminophen 1,000 mg PO Q8H PRN 05/16/19 05/16/19 History aspirin 81 mg PO DAILY 05/16/19 05/16/19 History atorvastatin 40 mg PO DAILY 05/16/19 05/16/19 History docusate sodium 100 mg PO DAILY 05/16/19 05/16/19 History furosemide 20 mg PO DAILY 05/16/19 05/16/19 History multivitamin 1 tab PO DAILY 05/16/19 05/16/19 History potassium chloride 10 meq PO DAILY 05/16/19 05/16/19 History Family History Patient reports a brother with anxiety, otherwise denies family history of psychiatric conditions. Substance Abuse History Patient denies routine use of alcohol, tobacco, or other illicit substances. 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) Marital Status: ( 2-3 weeks ago) Number Of Children: 4 adult children, 1 of which lives locally Beliefs That Will Affect Care: Spiritism (Catholic) History of Legal Problems: Denies Psychological Trauma History Comment: Denies Patient History Medical History History of TIA (transient ischemic attack) Hypertension (Acute) Parkinsons disease Paroxysmal atrial fibrillation Troponin level elevated (Acute) Surgical History History of hysterectomy History of knee surgery Family History Other Stroke Social History Preferred Language: Taiwanese Communication Ability: Effective Quart[employer]er Required: No Beliefs That Will Affect Care: Spiritism (Catholic) marital status: / Current Living Situation: Personal Care Facility Current Living Situation Comment: the [place] Other Information That Helps Us Care for You: No Feels Safe at Home: Yes Safety Concerns: Feels Safe At This Time Smoking Status: Never smoker Hx Alcohol Use: No Hx Substance Use: No Physical Exam Psychiatric: Orientation: alert and oriented to person; + not oriented to place (Thought she was in a rehab facility in "[place]") and + not oriented to time (Thought the date was 05/17/1934, guessed the day of the week as Friday) Apperance: appropriately dressed (in hospital gown), appropriately groomed (white hair appears clean and decently styled, wearing corrective lenses) and appeared stated age Eye Contact: + fair eye contact (distracted at times by image on tv) Motor Behavior: no abnormal motor movements (observed while laying in bed) Speech: normal rate/rhythm/volume of speech Affect: + blunted affect (but not appearing overtly depressed, brightening appropriately) and mood congruent with affect Mood: no depressed mood ("Not bad" and "a little sad, but that's reasonable") Thought Process: goal directed thought process, clear/coherent thought process and thought association intact Thought Content: reality based without delusions; no hopelessness and no worthlessness Suicidal Thoughts: denies suicidal thoughts, denies suicidal plan and denies suicidal intent Homicidal Thoughts: denies homicidal thoughts Hallucinations: no auditory hallucinations and no visual hallucinations Pt participates appropriately in productive conversation. She is unable to spell "world" backwards, guessing "[id number]". When asked to name "3 major cities in the [place]", she states "[place], [place], and [place]." She is able to recall that "Trchac[place]" is the current president, but believed that "The Lady's Man"/"Medardo" was the president immediately prior. Insight: + limited insight Judgement: + limited judgement Results of Mini-Cog were reviewed. Pt was able to recall all 3 words after drawing the clock. Clock drawing interpretation - pt wrote several numbers on the past, all in the middle of the [place] outline. Clearly legible numbers are 3, 5, 6, and 7. Some numbers appear to have several short lines drawn from the center of the number, outward. There is a shaded dot in the middle of the numbers patient had written, but no clock hands stemming from this dot. Vital Signs (Past 24 Hours): Last Vital Signs Temp 36.5 C 05/17/19 11:35 Pulse 85 05/17/19 11:35 Resp 16 05/17/19 11:35 BP 143/82 H 05/17/19 11:35 Pulse Ox 96 05/17/19 13:37 Review of Systems Constitutional: reports chronically reduced energy Cardiovascular: denied Respiratory: denied Gastrointestinal: denied Neurological: reports perceived difficulty with long-term memory Psychiatric: denies symptoms other than stated above Total of at least 10 systems reviewed, pertinent positives as above and in HPI. Results & Data Medications Administered Aspirin (Ecotrin Ectab) 81 mg PO DAILY CHAD Stop: 06/16/19 08:59 Last Admin: 05/17/19 09:02 Dose: 81 mg Documented by: [id number] Cosigned by: [id number] Atorvastatin Calcium (Lipitor) 40 mg PO DAILY CHAD Stop: 06/16/19 08:59 Last Admin: 05/17/19 09:07 Dose: 40 mg Documented by: [id number] Cosigned by: [id number] Docusate Sodium (Colace) 100 mg PO DAILY CHAD Stop: 06/16/19 08:59 Last Admin: 05/17/19 09:01 Dose: 100 mg Documented by: [id number] Cosigned by: [id number] Furosemide (Lasix) 20 mg PO DAILY CHDA Stop: 06/16/19 08:59 Last Admin: 05/17/19 09:08 Dose: 20 mg Documented by: [id number] Cosigned by: [id number] Heparin Sodium (Porcine) (Heparin Sodium (Porcine)) 5,000 units SQ Q8 CHAD Stop: 06/15/19 21:59 Last Admin: 05/17/19 13:58 Dose: 5,000 units Documented by: [id number] Cosigned by: [id number] Admin: 05/17/19 05:35 Dose: 5,000 units Documented by: [id number] Cosigned by: [id number] Admin: 05/16/19 21:58 Dose: 5,000 units Documented by: [id number] Cosigned by: [id number] Lisinopril (Zestril) 10 mg PO DAILY CHAD Stop: 06/16/19 08:59 Last Admin: 05/17/19 09:06 Dose: 10 mg Documented by: [id number] Cosigned by: [id number] Multivitamins (Multivitamin Tab) 1 tab PO DAILY CHAD Stop: 06/16/19 08:59 Last Admin: 05/17/19 09:06 Dose: 1 tab Documented by: [id number] Cosigned by: [id number] Potassium Chloride (Klor-Con M10) 10 meq PO DAILY CHAD Stop: 06/16/19 08:59 Last Admin: 05/17/19 09:03 Dose: 10 meq Documented by: [id number] Cosigned by: [id number] Coding Level of Care Code 39431 [facility] Intl Hosp Care Lvl 2
[2019-05-18] MEDS: HEPARIN SOD 5,000 UNIT/0.5 ML VIAL SQ SCH ×2 (05:52→13:31)
[2019-05-18] MEDS: LISINOPRIL 10 MG TAB PO SCH (07:34)
[2019-05-18] MEDS: ATORVASTATIN 40 MG TAB PO SCH (07:34)
[2019-05-18] MEDS: DOCUSATE SODIUM 100 MG CAP PO SCH (07:34)
[2019-05-18] MEDS: MULTIVITAMIN TAB PO SCH (07:34)
[2019-05-18 07:35] LABS: Basophils # (auto) 0.02 K/uL (0-0.2); Basophils % (auto) 0.4 %; Eosinophils # (auto) 0.05 K/uL (0-0.5); Hematocrit (blood only) 43.1 % (37-47); Hemoglobin 14.1 g/dL (12.0-16.0); Immature Granulocytes # (auto) 0.01 K/uL (0.00-0.02); Immature Granulocytes % (auto) 0.2 %; Lymphocytes # (auto) 0.84 K/uL (1.2-3.4); Lymphocytes % (auto) 16.4 %; Mean Corpuscular Hemoglobin 27.4 pg (25-34); Mean Corpuscular Hgb Conc 32.7 g/dL (32-36); Mean Corpuscular Volume 83.7 fL (80-100); Monocytes # (auto) 0.37 K/uL (0.11-0.59); Monocytes % (auto) 7.2 %; Neutrophils # (auto) 3.84 K/uL (1.4-6.5); Neutrophils % (auto) 74.8 %; Platelet Count 208 K/uL (130-400); RDW Coefficient of Variation 14.6 % (11.5-14.5); RDW Standard Deviation 45.1 fL (36.4-46.3); Red Blood Count 5.15 M/uL (4.2-5.4); White Blood Count 5.13 K/uL (4.8-10.8)
[2019-05-18] MEDS: ASPIRIN 81 MG ECTAB PO SCH (07:35)
[2019-05-18] MEDS: FUROSEMIDE 20 MG TAB PO SCH (07:35)
[2019-05-18] MEDS: POTASSIUM CHLORIDE 10 MEQ TABCR PO SCH (07:35)
--- NOTE | 2019-05-18 07:37 | Hospitalist Progress Note ---
Date of Service May 18, 2019 Assessment & Plan (1) Ileus: This is an 84yo F from [facility] assisted [facility] facility with a PMH of HTN, paroxysmal atrial fibrillation, Parkinson's disease, history of TIA and other medical problems listed below who presents with LLE pain and abdominal pain and was found to have elevated troponin level and ileus. -CT abd/pelvis with multiple prominent air and fluid-filled loops of small bowel within the lower abdomen and pelvis are suggestive of a nonspecific enteritis or ileus. No bowel obstruction or bowel wall thickening -May eat -KUB shows no obstruction (2) Altered mental status: UA negative (3) Pain of left lower extremity: Noted diffuse pain a few days ago, difficult to move/lift -No decreased strength or ROM on exam, neurovascularly intact, trace equal swelling -Bilateral doppler ultrasound to assess for DVT-No DVT within the right or left lower extremity. -PT/OT (4) Troponin level elevated: Initial troponin elevated at 0.475 -EKG with NSR with LAD and LBBB (known). CXR without acute process -No chest pain or evidence of ACS at this time -ED physician discussed with Dr. Brunson, who states that given patients clinical history and cognitive impairments, does not think anticoagulant with heparin is necessary at this time -DC tele today, DC back to [facility] today (5) Parkinsons disease: Recently diagnosed by Dr. Brady in January 2019 -Was not yet started on Sinemet due to concern it would worsen cognitive symptoms -Has neuro follow up scheduled for beginning of June -Unclear if confusion is due to acute event of losing 3 weeks ago Psych said not to add any meds yet, Dr Brady said fu in Jun (6) Hypertension: -Continue lisinopril (7) Paroxysmal atrial fibrillation: Asymptomatic. Recent holter monitor revealed no definitive atrial fibrillation with paroxysmal nonsustained SVT possible atrial tachycardia -Also with second degree type 1 AV block noted. Per cardiology note, avoid beta blockers/AV neo blockers (8) History of TIA (transient ischemic attack): Continue baby aspirin DVT Ppx: SQ heparin Code status: DNR per discussion with patient PCP: Nu Dispo: Back to [facility] today Labs checked ROS-Offers no reliable history Physical Exam Gen-AAO x 1, NAD, Afebrile, Agitated, ?Sundowning Head-NCAT, EOMI, PERRLA, Anicteric Sclera, No Posterior Pharyngeal Erythema Neck-Supple, No JVD, No Thyromegaly, No Masses, No LAD, No Bruits Lungs-Clear to Auscultation Bilaterally, No Rales, No Rhonchi, No Wheezing, No Crepitus Chest-No S4, +S1, +S2, No S3, No Murmurs, No Rubs, No Gallops, No Ectopy Abdomen-Soft, Bowel Sounds Present, Non Tender, Non Distended, No Hepatomegaly, No Splenomegaly, No Palpable Masses, No Rebound, No Rigidity, No Guarding Musculoskeletal-Full Range of Motion Bilaterally, No CVAT Extremities-No Cyanosis, No Clubbing, No Edema Nuero-Cranial Nerves II-XII grossly intact, Motor WNL, DTRs WNL, Strength WNL, Non Focal Psych-Uncooperative and agitated Results & Data Vital Signs (Past 12 Hours) Vital Signs Temp Pulse Pulse Resp BP Pulse Ox 05/18/19 04:24 37 C 75 20 163/82 H 90 05/18/19 00:20 66 05/17/19 22:33 36.4 C L 71 20 146/80 H 95 (1) Hypertension Hypertension type: unspecified Qualified Code(s): I10 - Essential (primary) hypertension
[2019-05-18 07:42] LABS: Prothrombin Time 10.7 Seconds (9.0-12.0)
[2019-05-18 08:03] LABS: Albumin Level 3.3 gm/dl (3.4-5.0); Creatinine Clr Calc Pharmacy 56.5 ml/min; Est GFR (African American) 93.6; Est GFR (Non-African American) 80.7; Potassium 3.8 mmol/L (3.5-5.1)
[2019-05-18 08:06] LABS: Albumin Globulin Ratio 0.9 (0.9-2); Bilirubin,Total 0.9 mg/dl (0.2-1); Globulin 3.8 gm/dl (2.5-4.0); Total Protein 7.1 gm/dl (6.4-8.2)
--- NOTE | 2019-05-18 09:20 | Discharge Summary ---
Date of Service May 18, 2019 Admission HPI Per Admitting Provider Toshia Nichols is an 84-year-old female admitted medically on 05/16/2019 after presenting to the ED with confusion and abdominal pain. She was admitted for further workup regarding elevated troponin and confusion, as well as an ileus. Past medical history includes hypertension, paroxysmal atrial fibrillation, Parkinson's disease, and history of recent TIA. Psychiatric consultation was requested to evaluate the patient for confusion, questioning if the recent passing of patient's may be in any way related to her confusion. Patient was cooperative with assessment by psychiatric nurse liaison, and comp leted a PHQ-9 which indicated only "minimal symptoms." She also completed a Mini-Cog, scoring a total of 3 due to poorly completed Clock Drawing. Patient had denied any significant concerns related to the presence of depressive symptoms at that time. She was cooperative with psychiatric evaluation by this provider. Patient states today that she is "not bad." When asked to explain her understanding of why she is in the hospital, the patient states "I guess one of the things that brought me in was that they thought I had a mini stroke...well, eh... No, I guess that's what brought me in the last time." She corrects herself, stating that she believes she was brought in for "swollen legs." When asked about her recent thought processes, the patient does admit that she has been a bit more confused lately. She especially notes difficulty with long-term memory. Patient admits to this provider that there has been "a lot of stress since my had just ." She follows up this comment by stating "but we do have good friends and neighbors, who got me through this." Patient does indicate that the passing of her "was not sudden, we were experiencing a decline in his health for some time now." Patient was asked questions related to possible depressive symptoms, she admits to chronically low energy and that "I'm not a good sleeper at all", but denies any other symptoms consistent with depression. She states that she continues routine self-care and has not noticed anhedonia, limited motivation, or inability to attend to ADLs. Pt states that she has not history of psychiatric treatment. She denies history of SI or suicide attempts in the past. She is interested in attending grief counseling groups, which she states have been advertised in her local paper. Pt states she is not interested in additional medications, stating she does not feel they are necessary. Pt denies other needs or concerns presently. Admission Exam Per Admitting Provider General Appearance: WD/WN, vitals as above, NAD, sitting up on edge of bed, pleasant Head: normocephalic, atraumatic Eyes: normal inspection, PERRL, conjunctivae normal, anicteric sclerae ENT: external ear and nose normal, oropharynx normal Neck: trachea midline, no thyromegaly normal visual inspection Respiratory: normal respiratory effort, lungs clear to auscultation, no wheeze, rales, rhonchi. Normal insp/exp effort, no accessory muscle use Cardiovascular: regular rate, rhythm, no murmur, normal peripheral pulses. Ves sels: no JVD or carotid bruit Chest: normal inspection of chest Abdomen/GI: normal bowel sounds, soft, nontender, no hepatosplenomegaly Extremities/Musculoskelatal: no cyanosis or clubbing. Trace BLE edema, non- tender to palpation, neurovascularly intact. Extremities motor strength 5/5. Neurologic: PERRL, EOMI, accommodation nl, no face palsy but bradykinetic with decreased expression, no dysarthria. CN's II-XI intact bilaterally and moves all extremities Psychiatric: A+Ox 3, not to situation, crying intermittently about loss of Skin: no rashes, normal color, warm/dry. +maculopapular rash on dorsal aspect of foot, no open lesions Principal Diagnosis (1) Ileus: (2) Altered mental status: (3) Pain of left lower extremity: (4) Troponin level elevated: (5) Parkinsons disease: (6) Hypertension: (7) Paroxysmal atrial fibrillation: (8) History of TIA (transient ischemic attack): Discharge Exam Gen-AAO x 1, NAD, Afebrile, Agitated, ?Sundowning Head-NCAT, EOMI, PERRLA, Anicteric Sclera, No Posterior Pharyngeal Erythema Neck-Supple, No JVD, No Thyromegaly, No Masses, No LAD, No Bruits Lungs-Clear to Auscultation Bilaterally, No Rales, No Rhonchi, No Wheezing, No Crepitus Chest-No S4, +S1, +S2, No S3, No Murmurs, No Rubs, No Gallops, No Ectopy Abdomen-Soft, Bowel Sounds Present, Non Tender, Non Distended, No Hepatomegaly, No Splenomegaly, No Palpable Masses, No Rebound, No Rigidity, No Guarding Musculoskeletal-Full Range of Motion Bilaterally, No CVAT Extremities-No Cyanosis, No Clubbing, No Edema Nuero-Cranial Nerves II-XII grossly intact, Motor WNL, DTRs WNL, Strength WNL, Non Focal Psych-Cooperative Discharge Data Allergies Allergy/AdvReac Type Severity Reaction Status Date / Time No Known Allergies Allergy Unverified 05/16/19 12:51 Consultations 05/16/19 15:19 ED Decision to Admit Stat 05/16/19 17:47 Consult Case Management - Discharge Planning Routine 05/17/19 08:18 Consult Neurology Routine 05/17/19 08:26 Consult Psychiatry Routine Current Diagnoses Parkinson's disease (05/16/19) Essential (primary) hypertension (05/16/19) Paroxysmal atrial fibrillation (05/16/19) Ileus, unspecified (05/16/19) Pain in left leg (05/16/19) Altered mental status, unspecified (05/16/19) Abnormal levels of other serum enzymes (05/16/19) Personal history of transient ischemic attack (TIA), and cerebral infarction without residual deficits (05/16/19) Allergies No Known Allergies Allergy (Unverified 05/16/19 12:51) Height/Weight/Isolation Height 5 ft 2 in Weight 67.9 kg Chemistry 05/16/19 05/17/19 05/18/19 13:05 01:24 06:47 Sodium 138 141 137 Potassium 3.9 3.5 3.8 Chloride 104 106 103 Carbon Dioxide 29 27 28 Anion Gap 5.0 8.0 6.0 BUN 14 11 14 Creatinine 0.62 0.52 L 0.67 Glucose 87 101 H 101 H Urinalysis 05/16/19 14:20 Urine Color Yellow Urine Appearance Clear Urine pH 5.5 Ur Specific [place] 1.011 Urine Protein Negative Urine Glucose (UA) Negative Urine Ketones Negative Urine Blood Negative Urine Nitrite Negative Urine Bilirubin Negative Microbiology 05/16/19 13:05 Blood Aerobic Blood Culture - Preliminary No growth in Aerobic bottle after 24 hours. 05/16/19 13:05 Blood Anaerobic Blood Culture - Preliminary No growth in Anaerobic bottle after 24 hours. 05/16/19 13:15 Blood Aerobic Blood Culture - Preliminary No growth in Aerobic bottle after 24 hours. 05/16/19 13:15 Blood Anaerobic Blood Culture - Preliminary No growth in Anaerobic bottle after 24 hours. Ordered Studies 05/16/19 12:47 CT abd pelvis IV con only Stat CT cervical spine wo con Stat CT head/brain wo con Stat 05/16/19 18:32 US venous doppler LE BI Routine Hospital Course (1) Ileus: This is an 84yo F from [facility] with a PMH of HTN, paroxysmal atrial fibrillation, Parkinson's disease, history of TIA and other medical problems listed below who presents with LLE pain and abdominal pain and was found to have elevated troponin level and ileus. -CT abd/pelvis with multiple prominent air and fluid-filled loops of small bowel within the lower abdomen and pelvis are suggestive of a nonspecific enteritis or ileus. No bowel obstruction or bowel wall thickening -May eat -KUB shows no obstruction (2) Altered mental status: UA negative (3) Pain of left lower extremity: Noted diffuse pain a few days ago, difficult to move/lift -No decreased strength or ROM on exam, neurovascularly intact, trace equal swelling -Bilateral doppler ultrasound to assess for DVT-No DVT within the right or left lower extremity. -PT/OT (4) Troponin level elevated: Initial troponin elevated at 0.475 -EKG with NSR with LAD and LBBB (known). CXR without acute process -No chest pain or evidence of ACS at this time -ED physician discussed with Dr. Brunson, who states that given patients clinical history and cognitive impairments, does not think anticoagulant with heparin is necessary at this time -[place] tele today, DC back to [facility] today (5) Parkinsons disease: Recently diagnosed by Dr. Brady in January 2019 -Was not yet started on Sinemet due to concern it would worsen cognitive symptoms -Has neuro follow up scheduled for beginning of June -Unclear if confusion is due to acute event of losing 3 weeks ago Psych said not to add any meds yet, Dr Brady said fu in Jun (6) Hypertension: -Continue lisinopril (7) Paroxysmal atrial fibrillation: Asymptomatic. Recent holter monitor revealed no definitive atrial fibrillation with paroxysmal nonsustained SVT possible atrial tachycardia -Also with second degree type 1 AV block noted. Per cardiology note, avoid beta blockers/AV neo blockers (8) History of TIA (transient ischemic attack): Continue baby aspirin DVT Ppx: SQ heparin Code status: DNR per discussion with patient PCP: Nu Dispo: Back to [facility] today Labs checked ROS-Offers no reliable history Physical Exam Gen-AAO x 1, NAD, Afebrile, Agitated, ?Sundowning Head-NCAT, EOMI, PERRLA, Anicteric Sclera, No Posterior Pharyngeal Erythema Neck-Supple, No JVD, No Thyromegaly, No Masses, No LAD, No Bruits Lungs-Clear to Auscultation Bilaterally, No Rales, No Rhonchi, No Wheezing, No Crepitus Chest-No S4, +S1, +S2, No S3, No Murmurs, No Rubs, No Gallops, No Ectopy Abdomen-Soft, Bowel Sounds Present, Non Tender, Non Distended, No Hepatomegaly, No Splenomegaly, No Palpable Masses, No Rebound, No Rigidity, No Guarding Musculoskeletal-Full Range of Motion Bilaterally, No CVAT Extremities-No Cyanosis, No Clubbing, No Edema Nuero-Cranial Nerves II-XII grossly intact, Motor WNL, DTRs WNL, Strength WNL, Non Focal Psych-Uncooperative and agitated Total Time Total Time Spent Total Time Spent (In Minutes): 45 mins Total Time Includes: Examination of the Patient, Discharge Planning, Medication Reconciliation and Communication With Other Providers Discharge Plan Discharge Items Patient Disposition: Home - Self-Care Reason For Visit: AMS, ILEUS Discharge Diagnosis: (1) Ileus: (2) Altered mental status: (3) Pain of left lower extremity: (4) Troponin level elevated: (5) Parkinsons disease: (6) Hypertension: (7) Paroxysmal atrial fibrillation: (8) History of TIA (transient ischemic attack) Condition on Discharge: Fair Activity: Resume your previous activity Lifting: None and Gradually increase as tolerated Bathing: No limitations Exercise/Sports: None Driving/Machine Use: None Weightbearing: Full weightbearing Non-emergency contact: Primary Care Provider and Neurologist Call non-emergency contact if: you have any medication questions Follow-up/Referrals: Hermelinda Judge MD [Primary Care Provider] - 05/24/19 10:45 am Panda Brady MD [Physician] - (Follow up in June as already scheduled) Diet: Regular Addtl Attending Provider Instructions: None Pending Studies at Discharge: No Stand-Alone Forms: My [facility], Smoking Cessation Medications and DC Order Prescriptions: Continued lisinopril 10 mg tablet 10 mg PO DAILY RF: 0 atorvastatin 40 mg tablet 40 mg PO DAILY RF: 0 potassium chloride 10 mEq capsule, extended release 10 meq PO DAILY RF: 0 aspirin 81 mg tablet,delayed release (DR/EC) 81 mg PO DAILY RF: 0 furosemide 20 mg tablet 20 mg PO DAILY RF: 0 multivitamin Tablet 1 tab PO DAILY RF: 0 acetaminophen 500 mg Tablet 1,000 mg PO Q8H PRN (Reason: Pain) RF: 0 Discontinued docusate sodium 100 mg Capsule 100 mg PO DAILY RF: 0 Discharge Orders: Discharge Order (Routine); Ordered 05/18/19 Ordered By: Son Nugent Admission Data Admit Date/Time: 05/16/19 16:15 Attending Provider: Son Nugent Admit Provider: Zeynep Landon Primary Care Provider: Hermelinda Judge Other Providers: Zeynep Landon ; Panda Brady ; Rina Choudhury
== END 2019-05-18 13:54 | disposition home or self-care (01) | DRG 390 ==
LOC: ED 11:44 → SUATTDRO 16:15 → 2W 16:15

== ENCOUNTER 2019-05-31 11:16 | Observation (INO) ==
[2019-05-31] MEDS ORDERED: SODIUM CHLORIDE 0.9% 500 ML IV SCH (12:00)
--- NOTE | 2019-05-31 12:20 | Emergency Department Note ---
Entered by Eliane Evans acting as a scribe for History of Present Illness General Chief complaint: Fall Time Seen by Provider: 05/31/19 11:48 Source: patient History of Present Illness Provider complaint: Fall Onset (ago): hour(s) 2 Location: buttocks Maximum Pain Intensity: 8 Relieved By: + none Exacerbated By: + none Associated symptoms: + denies other symptoms (Loss of consciousness, pain); no loss of appetite The patient is a 84 year old female who presents to the Emergency Room with complaints of a fall that occurred 2 hours ago at [facility]. The patient states she tried to sit on her recliner and slipped off and fell on her buttocks. The patient's family notes that the patient walks with a walker and has been having difficulty and has had a few falls in the past few days. The patient states the symptoms are not relieved nor exacerbated by anything specific. The patient denies having any pain, loss of consciousness during the incident, or any loss of appetite. The patient's family mentioned that she has been slumping to her right side when she sits down and has shown some signs of dementia. Home Medications Home Medications Medication Instructions Recorded Confirmed Type lisinopril 10 mg PO DAILY 01/08/19 05/31/19 History acetaminophen 1,000 mg PO Q8H PRN 05/16/19 05/31/19 History aspirin 81 mg PO DAILY 05/16/19 05/31/19 History atorvastatin 40 mg PO DAILY 05/16/19 05/31/19 History furosemide 20 mg PO DAILY 05/16/19 05/31/19 History multivitamin 1 tab PO DAILY 05/16/19 05/31/19 History potassium chloride 10 meq PO DAILY 05/16/19 05/31/19 History carbidopa-levodopa 1 tab PO DAILY 05/31/19 05/31/19 History Allergies Allergy/AdvReac Type Severity Reaction Status Date / Time No Known Allergies Allergy Unverified 05/31/19 12:38 Past Med/Surg History Medical History History of TIA (transient ischemic attack) Hypertension (Acute) Parkinsons disease Paroxysmal atrial fibrillation Troponin level elevated (Acute) Surgical History History of hysterectomy History of knee surgery Family History Other Stroke Social History Preferred Language: [place] Islander Communication Ability: Effective Skidder Required: No Beliefs That Will Affect Care: Restorationist (Spiritism) marital status: / Current Living Situation: Personal Care Facility Current Living Situation Comment: [facility] Feels Safe at Home: Yes Smoking Status: Never smoker Hx Alcohol Use: No Hx Substance Use: No Review of Systems See HPI for pertinent positives & negatives. and A total of 10 systems reviewed and were otherwise negative Physical Exam Vital Signs Vital Signs - 24 hr 05/31/19 11:23 05/31/19 12:02 05/31/19 13:13 Temperature 36.8 C Temperature Source Oral Pulse Rate 80 Pulse Rate [Apical] 87 Pulse Rhythm Regular Pulse Strength Normal Respiratory Rate 17 18 Respiratory Effort / Characteristics Non-Labored Spontaneous Respiratory Depth Normal Respiratory Pattern Regular Blood Pressure 126/67 Blood Pressure [Right Arm] 146/69 H Blood Pressure Mean 86 Blood Pressure Mean [Right Arm] 94 Blood Pressure Position Sitting Pulse Oximetry 95 96 Oxygen Delivery Method Room Air Room Air Sepsis Recent Fever Within 48 Hours No Sepsis Action Taken by Nursing No Action Required 05/31/19 15:44 Temperature Temperature Source Pulse Rate Pulse Rate [Apical] 82 Pulse Rhythm Pulse Strength Respiratory Rate 18 Respiratory Effort / Characteristics Respiratory Depth Respiratory Pattern Blood Pressure Blood Pressure [Right Arm] 138/86 Blood Pressure Mean Blood Pressure Mean [Right Arm] 103 Blood Pressure Position Pulse Oximetry 96 Oxygen Delivery Method Room Air Sepsis Recent Fever Within 48 Hours Sepsis Action Taken by Nursing GENERAL: The patient is awake and alert. She is mildly anxious appearing but overall comfortable. EYES: The conjunctivae are clear. The pupils are round and reactive. EARS, NOSE, MOUTH AND THROAT: The nose is without any evidence of any deformity. Mucous membranes are moist tongue is midline NECK: The neck is nontender and supple. RESPIRATORY: Normal respiratory effort is noted there is no evidence of wheezing rhonchi or rales CARDIOVASCULAR: Regular rate and rhythm noted there no murmurs rubs or gallops normal S1 normal S2 GASTROINTESTINAL: The abdomen is soft. Abdomen is nontender BACK: No midline tenderness was noted to palpation. MUSCULOSKELETAL/EXTREMITIES: There is no evidence of deformity in either the upper or lower extremities. Patient does have pain with range of motion of the left knee and has a wound dressing on the left lower knee. SKIN: Trace pedal edema was noted bilaterally. There is a small abrasion on the right ankle. Pulses are symmetric in both feet. NEUROLOGIC: Patient is oriented to person place and situation. She does recognize her granddaughter. No facial droop was noted. Patient appears to have difficulty lifting the left leg off the bed however she is able to keep the right leg off of the bed for 5 seconds. Radiation Control Specialist strength was symmetric. Course Course 1156: Past medical records reviewed. The patient was evaluated in room C06. A complete history and physical exam was performed. 1253: I reevaluated and discussed test results with the patient. The patient is resting comfortably. 1525: I spoke with the patient's family and they are not comfortable with the patient returning to [facility]. 1601: I spoke with Briseyda Blancas PA-C about the patient's case and Dr. Salinas- Hospitalist will accept the patient for further evaluation. Administered Medications Discontinued Medications Sodium Chloride (Nss) 500 mls @ 999 mls/hr IV .Q31M CHAD Stop: 05/31/19 12:30 Last Infusion: 05/31/19 13:01 Dose: 0 mls/hr Documented by: [id number] Admin: 05/31/19 12:23 Dose: 999 mls/hr Documented by: [id number] Medical Decision Making Differential Diagnosis Differential diagnoses includes but is not limited to toxic, metabolic, infectious, traumatic, cardiac, neurologic, hematologic, psychiatric and inflammatory etiologies. Medical Records Attestation: I reviewed the patient's medical records. Home Medications Current Medication List: was personally reviewed by me Laboratory Data Attestation: I reviewed the patient's lab results. Result diagrams: 05/31/19 12:18 05/31/19 12:18 Lab Results 05/31/19 05/31/19 05/31/19 Range/Units 12:18 12:18 12:18 WBC 9.04 (4.8-10.8) K/uL RBC 4.95 (4.2-5.4) M/uL Hgb 13.9 (12.0-16.0) g/dL Hct 42.8 (37-47) % MCV 86.5 (80-100) fL MCH 28.1 (25-34) pg MCHC 32.5 (32-36) g/dL RDW Std Deviation 47.2 H (36.4-46.3) fL RDW Coeff of Reece 14.8 H (11.5-14.5) % Plt Count 217 (130-400) K/uL MPV 9.7 (7.4-10.4) fL Immature Gran % (Auto) 0.1 % Neut % (Auto) 87.2 % Lymph % (Auto) 5.9 % [place] % (Auto) 6.3 % Eos % (Auto) 0.3 % Baso % (Auto) 0.2 % Immature Gran # (Auto) 0.01 (0.00-0.02) K/uL Neut # (Auto) 7.88 H (1.4-6.5) K/uL Lymph # (Auto) 0.53 L (1.2-3.4) K/uL [place] # (Auto) 0.57 (0.11-0.59) K/uL Eos # (Auto) 0.03 (0-0.5) K/uL Baso # (Auto) 0.02 (0-0.2) K/uL PT 10.6 (9.0-12.0) Seconds INR 1.0 (0.9-1.1) APTT 21.8 (21.0-31.0) Seconds PTT Ratio 0.8 Sodium 140 (136-145) mmol/L Potassium 4.1 (3.5-5.1) mmol/L Chloride 106 (98-107) mmol/L Carbon Dioxide 31 (21-32) mmol/L Anion Gap 3.0 (3-11) BUN 27 H (7-18) mg/dl Creatinine 1.02 (0.6-1.2) mg/dl Est Cr Clr Drug Dosing 38.9 ml/min Est GFR ( Amer) 58.5 Est GFR (Non-Af Amer) 50.5 BUN/Creatinine Ratio 26.7 H (10-20) Glucose 119 H (70-99) mg/dl Calcium 9.2 (8.5-10.1) mg/dl Magnesium 2.1 (1.8-2.4) mg/dl Total Bilirubin 0.9 (0.2-1) mg/dl AST 71 H (15-37) U/L ALT 49 (12-78) U/L Alkaline Phosphatase 57 (45-117) U/L Troponin I 0.118 H* (0-0.045) ng/ml Total Protein 7.2 (6.4-8.2) gm/dl Albumin 3.2 L (3.4-5.0) gm/dl Globulin 4.0 (2.5-4.0) gm/dl Albumin/Globulin Ratio 0.8 L (0.9-2) TSH 1.250 (0.300-4.500) uIu/ml Urine Color Urine Appearance (Clear) Urine pH (4.5-7.5) Ur Specific [place] (1.000-1.030) Urine Protein (Negative) Urine Glucose (UA) (Negative) Urine Ketones (Negative) Urine Blood (Negative) Urine Nitrite (Negative) Urine Bilirubin (Negative) Urine Urobilinogen (Negative) Ur Leukocyte Esterase (Negative) Urine WBC (Auto) (0-5) /hpf Urine RBC (Auto) (0-4) /hpf U Hyaline Cast (Auto) (0-5) /lpf U Epithel Cells (Auto) (0-5) /lpf Urine Bacteria (Auto) (Negative) 05/31/19 Range/Units 14:14 WBC (4.8-10.8) K/uL RBC (4.2-5.4) M/uL Hgb (12.0-16.0) g/dL Hct (37-47) % MCV (80-100) fL MCH (25-34) pg MCHC (32-36) g/dL RDW Std Deviation (36.4-46.3) fL RDW Coeff of Reece (11.5-14.5) % Plt Count (130-400) K/uL MPV (7.4-10.4) fL Immature Gran % (Auto) % Neut % (Auto) % Lymph % (Auto) % [place] % (Auto) % Eos % (Auto) % Baso % (Auto) % Immature Gran # (Auto) (0.00-0.02) K/uL Neut # (Auto) (1.4-6.5) K/uL Lymph # (Auto) (1.2-3.4) K/uL [place] # (Auto) (0.11-0.59) K/uL Eos # (Auto) (0-0.5) K/uL Baso # (Auto) (0-0.2) K/uL PT (9.0-12.0) Seconds INR (0.9-1.1) APTT (21.0-31.0) Seconds PTT Ratio Sodium (136-145) mmol/L Potassium (3.5-5.1) mmol/L Chloride (98-107) mmol/L Carbon Dioxide (21-32) mmol/L Anion Gap (3-11) BUN (7-18) mg/dl Creatinine (0.6-1.2) mg/dl Est Cr Clr Drug Dosing ml/min Est GFR ( Amer) Est GFR (Non-Af Amer) BUN/Creatinine Ratio (10-20) Glucose (70-99) mg/dl Calcium (8.5-10.1) mg/dl Magnesium (1.8-2.4) mg/dl Total Bilirubin (0.2-1) mg/dl AST (15-37) U/L ALT (12-78) U/L Alkaline Phosphatase (45-117) U/L Troponin I (0-0.045) ng/ml Total Protein (6.4-8.2) gm/dl Albumin (3.4-5.0) gm/dl Globulin (2.5-4.0) gm/dl Albumin/Globulin Ratio (0.9-2) TSH (0.300-4.500) uIu/ml Urine Color Dark Yellow Urine Appearance Clear (Clear) Urine pH 5.0 (4.5-7.5) Ur Specific [place] 1.023 (1.000-1.030) Urine Protein Trace H (Negative) Urine Glucose (UA) Negative (Negative) Urine Ketones Trace H (Negative) Urine Blood Negative (Negative) Urine Nitrite Negative (Negative) Urine Bilirubin Negative (Negative) Urine Urobilinogen Negative (Negative) Ur Leukocyte Esterase Negative (Negative) Urine WBC (Auto) 1-5 (0-5) /hpf Urine RBC (Auto) 0-4 (0-4) /hpf U Hyaline Cast (Auto) 5-10 H (0-5) /lpf U Epithel Cells (Auto) 5-10 H (0-5) /lpf Urine Bacteria (Auto) Negative (Negative) Imaging Data Radiologist's Impression: Radiology results as stated below per my review and the radiologist's interpretation: XR chest 1V portable CLINICAL HISTORY: weakness COMPARISON STUDY: 05/16/2019 FINDINGS: The heart is enlarged. There is aortic tortuosity/ectasia. There is mild chronic interstitial prominence. There is no focal pulmonary consolidation. There are no pleural effusions.[ IMPRESSION: Stable cardiomegaly. No acute findings. Electronically signed by: Dutch Carrasco M.D. 05/31/2019 12:54 PM XR knee LT 1 or 2V routine CLINICAL HISTORY: Left knee pain status post trauma COMPARISON: None. DISCUSSION: There is faint medial chondrocalcinosis. No fractures or dislocations are visualized. IMPRESSION: No fractures or dislocations identified. Electronically signed by: Dutch Carrasco M.D. 05/31/2019 12:53 PM XR pelvis 1-2V routine CLINICAL HISTORY: Pelvic pain status post trauma COMPARISON: 05/16/2019 DISCUSSION: Degenerative changes are present within the lower lumbar spine. There is no SI joint diastases. There is no symphysis diastases. No acute fractures are visualized. There are no dislocations. IMPRESSION: No acute fractures or dislocations identified. Electronically signed by: Dutch Carrasco M.D. 05/31/2019 12:57 PM XR tibia fibula LT 2V HISTORY: 84 years-old Female fall acute left lower leg pain status post fall COMPARISON: Left knee radiographs of same day TECHNIQUE: 2 views of the left tibia and fibula FINDINGS: Mildly demineralized appearance of the bones. Mild degenerative changes of the knee and ankle. Subcentimeter bone island of the medial femoral condyle. No acute fracture or dislocation. IMPRESSION: No acute fracture or dislocation. The above report was generated using voice recognition software. It may contain grammatical, syntax or spelling errors. Electronically signed by: Chris Copeland M.D. 05/31/2019 12:[address] head/brain wo con CLINICAL HISTORY: weakness COMPARISON STUDY: 05/16/2019 TECHNIQUE: Axial CT of the brain is performed from the vertex to the skull base. IV contrast was not administered for this examination. A dose lowering technique was utilized adhering to the principles of ALARA. CT DOSE: 638.56 mGycm FINDINGS: No intra or extra-axial mass lesions are visualized. There is no CT evidence of acute cortical infarction. There is no evidence of midline shift. There is no acute hemorrhage. No calvarial fractures are visualized. There are patchy white matter hypodensities likely on a small vessel basis. There is no evidence of pathologic ventricular dilatation. There is no evidence of acute sinusitis IMPRESSION: No acute intracranial findings Electronically signed by: Dutch Carrasco M.D. 05/31/2019 1:10 PM ECG Data Attestation: I personally reviewed and interpreted this ECG as follows: Indication: + other (Fall) Rate (beats per minute): 74 Rhythm: + sinus rhythm ECG Intervals/blocks: + Left bundle branch block ECG Findings: + PACs Comparison ECG Date: from (05/18/19) Change: no significant change Blood Pressure Blood Pressure Findings: Elevated blood pressure Blood Pressure Disposition: further management by hospitalist DONNA Narrative The patient is an 84-year-old female who presented to the emergency department after a fall. Most of the history is obtained from the patient but also from h er granddaughter and her 2 sons. The patient currently lives in a personal skilled nursing. Her approximately 1 month ago. She is had frequent falls recently at the personal skilled nursing. There is concern that the patient may be declining and she was sent to the emergency department for further evaluation. There is no specific fall that led to the patient's presentation to the emergency department. At this time she denies any pain but does have an area on her left knee where she has a small bruise. I discussed patient's laboratory and radiographic studies with her and her family members. No specific abnormality was found. Specifically the patient does not have signs of stroke on CT. There is no signs of infection on chest x-ray urinalysis. Because of the patient's living conditions at this time I discussed her case with the emergency department showcase trimmer. We tried to have the patient referred to rehab but at this time we are unable to have the patient excepted. PT and OT consults were ordered. Because of the patient's living conditions at this time I did discuss her case with the on[facility] hospitalist group. They have agreed to evaluate the patient in the emergency department for further management disposition. Impression & Plan Fall, Weakness, Dementia Discharge Plan Visit Data Chief Complaint: Fall ED Provider: Harley Jennings Discharge Problem: Fall, Weakness, Dementia Forms Stand Alone Forms: My [facility] Prescriptions Prescriptions: No Action lisinopril 10 mg tablet 10 mg PO DAILY RF: 0 carbidopa-levodopa 25-100 mg tablet 1 tab PO DAILY RF: 0 atorvastatin 40 mg tablet 40 mg PO DAILY RF: 0 potassium chloride 10 mEq capsule, extended release 10 meq PO DAILY RF: 0 aspirin 81 mg tablet,delayed release (DR/EC) 81 mg PO DAILY RF: 0 furosemide 20 mg tablet 20 mg PO DAILY RF: 0 multivitamin Tablet 1 tab PO DAILY RF: 0 acetaminophen 500 mg Tablet 1,000 mg PO Q8H PRN (Reason: Pain) RF: 0 Discharge Problem: Fall Qualifiers: Encounter type: initial encounter Qualified Code(s): W19.XXXA - Unspecified fall, initial encounter Dementia Qualifiers: Dementia type: unspecified type Dementia behavioral disturbance: without behavioral disturbance Qualified Code(s): F03.90 - Unspecified dementia without behavioral disturbance The scribe's documentation has been prepared under my direction and personally reviewed by me in its entirety. I confirm that the note above accurately reflects all work, treatment, procedures, and medical decision making performed by me.
[2019-05-31 12:30] LABS: Basophils # (auto) 0.02 K/uL (0-0.2); Basophils % (auto) 0.2 %; Eosinophils # (auto) 0.03 K/uL (0-0.5); Eosinophils % (auto) 0.3 %; Hematocrit (blood only) 42.8 % (37-47); Hemoglobin 13.9 g/dL (12.0-16.0); Immature Granulocytes # (auto) 0.01 K/uL (0.00-0.02); Immature Granulocytes % (auto) 0.1 %; Lymphocytes # (auto) 0.53 K/uL (1.2-3.4); Lymphocytes % (auto) 5.9 %; Mean Corpuscular Hemoglobin 28.1 pg (25-34); Mean Corpuscular Hgb Conc 32.5 g/dL (32-36); Mean Corpuscular Volume 86.5 fL (80-100); Mean Platelet Volume 9.7 fL (7.4-10.4); Monocytes # (auto) 0.57 K/uL (0.11-0.59); Monocytes % (auto) 6.3 %; Neutrophils # (auto) 7.88 K/uL (1.4-6.5); Neutrophils % (auto) 87.2 %; Platelet Count 217 K/uL (130-400); RDW Coefficient of Variation 14.8 % (11.5-14.5); RDW Standard Deviation 47.2 fL (36.4-46.3); Red Blood Count 4.95 M/uL (4.2-5.4); White Blood Count 9.04 K/uL (4.8-10.8)
[2019-05-31 12:39] LABS: Partial Thromboplastin Ratio 0.8; Partial Thromboplastin Time 21.8 Seconds (21.0-31.0); Prothrombin Time 10.6 Seconds (9.0-12.0)
--- NOTE | 2019-05-31 12:54 | XRay Report ---
XR knee LT 1 or 2V routine CLINICAL HISTORY: Left knee pain status post trauma COMPARISON: None. DISCUSSION: There is faint medial chondrocalcinosis. No fractures or dislocations are visualized. IMPRESSION: No fractures or dislocations identified. Electronically signed by: Dutch Carrasco M.D. 05/31/2019 12:53 PM
--- NOTE | 2019-05-31 12:55 | XRay Report ---
XR chest 1V portable CLINICAL HISTORY: weakness COMPARISON STUDY: 05/16/2019 FINDINGS: The heart is enlarged. There is aortic tortuosity/ectasia. There is mild chronic interstiti al prominence. There is no focal pulmonary consolidation. There are no pleural effusions.[ IMPRESSION: Stable cardiomegaly. No acute findings. Electronically signed by: Dutch Carrasco M.D. 05/31/2019 12:54 PM
[2019-05-31 12:57] LABS: Albumin Level 3.2 gm/dl (3.4-5.0); BUN Creatinine Ratio 26.7 (10-20); Calcium 9.2 mg/dl (8.5-10.1); Creatinine Clr Calc Pharmacy 38.9 ml/min; Est GFR (African American) 58.5; Est GFR (Non-African American) 50.5; Magnesium 2.1 mg/dl (1.8-2.4); Potassium 4.1 mmol/L (3.5-5.1)
--- NOTE | 2019-05-31 12:58 | XRay Report ---
XR pelvis 1-2V routine CLINICAL HISTORY: Pelvic pain status post trauma COMPARISON: 05/16/2019 DISCUSSION: Degenerative changes are present within the lower lumbar spine. There is no SI joint pichardo tases. There is no symphysis diastases. No acute fractures are visualized. There are no dislocations. IMPRESSION: No acute fractures or dislocations identified. Electronically signed by: Dutch Carrasco M.D. 05/31/2019 12:57 PM
--- NOTE | 2019-05-31 12:58 | XRay Report ---
XR tibia fibula LT 2V HISTORY: 84 years-old Female fall acute left lower leg pain status post fall COMPARISON: Left knee radiographs of same day TECHNIQUE: 2 views of the left tibia and fibula FINDINGS: Mildly demineralized appearance of the bones. Mild degenerative changes of the knee and ankle. Subcen timeter bone island of the medial femoral condyle. No acute fracture or dislocation. IMPRESSION: No acute fracture or dislocation. The above report was generated using voice recognition software. It may contain grammatical, syntax o r spelling errors. Electronically signed by: Chris Copeland M.D. 05/31/2019 12:57 PM
[2019-05-31 13:09] LABS: Albumin Globulin Ratio 0.8 (0.9-2); Bilirubin,Total 0.9 mg/dl (0.2-1); Thyroid Stimulating Hormone 1.25 uIu/ml (0.300-4.500); Total Protein 7.2 gm/dl (6.4-8.2); Troponin I 0.118 ng/ml (0-0.045)
--- NOTE | 2019-05-31 13:12 | CT Scan Report ---
CT head/brain wo con CLINICAL HISTORY: weakness COMPARISON STUDY: 05/16/2019 TECHNIQUE: Axial CT of the brain is performed from the vertex to the skull base. IV contrast was not administered for this examination. A dose lowering technique was utilized adhering to the principles of ALARA. CT DOSE: 638.56 mGycm FINDINGS: No intra or extra-axial mass lesions are visualized. There is no CT evidence of acute cortical infarc tion. There is no evidence of midline shift. There is no acute hemorrhage. No calvarial fractures ar e visualized. There are patchy white matter hypodensities likely on a small vessel basis. There is no evidence of pathologic ventricular dilatation. There is no evidence of acute sinusitis IMPRESSION: No acute intracranial findings Electronically signed by: Dutch Carrasco M.D. 05/31/2019 1:10 PM
[2019-05-31 14:28] LABS: Appearance Urine Clear (Clear); Bacteria Urine Automated Negative (Negative); Blood Urine Negative (Negative); Color Urine Dark Yellow; Glucose Urine UA Negative (Negative); Ketones Urine Trace (Negative); Leukocyte Esterase Urine Negative (Negative); Nitrite Urine Negative (Negative); Protein Urine Trace (Negative); RBC Urine Automated 0-4 /hpf (0-4); Specific Gravity Urine 1.023 (1.000-1.030); Urobilinogen Urine Negative (Negative)
[2019-05-31 14:29] LABS: Bilirubin Urine Negative (Negative); Ictotest Urine Negative (Negative)
--- NOTE | 2019-05-31 17:20 | History & Physical Report ---
Date of Service May 31, 2019 Assessment & Plan (1) Ambulatory dysfunction: (2) Fall: (3) Weakness: This is an 84-year-old female who has significant past medical history of Parkinson's disease, concern for Lewy body dementia, HTN, PAF, history of TIA who presents to [facility] ED secondary to fall off chair prior to arrival. Patient recent hospital confinement 05/16-05/18 2/2 confusion. She was discharged back to assisted living facility where she continues to have difficulty with ambulation, frequent falls. She does ambulate with walker. Head CT was negative for acute abnormality. Left knee x-ray, pelvis x-ray and tib-fib x-ray negative for acute fracture or dislocation. Chest x-ray negative for acute cardiopulmonary abnormality. CBC relatively unremarkable. CMP revealed elevated BUN 27, creatinine 1.02, ratio 26.7, glucose 119, AST 71, troponin 0.118, TSH WNL Urinalysis was negative for infection but is clinical dehydration. admit to med/surg IVF 75 cc/hr x 1 L, repeat labs in a.m. PT/OT consulted - pt likely to need acute vs SNF due to ambulatory dysfunction and weakness in setting of Parkinson disease consult case management (4) MAGALY (acute kidney injury): baseline cr 0.5 bun/cr today 27 and 1.02 likely pre renal in setting of dehydration received 500ml of IVF while in ED continue IVF 75 cc/hr x 1 L repeat bmp in a.m. (5) Right knee pain: traumatic 2/2 to fall mild effusion superior/medially with ecchymosis obtain R knee xray voltaren gel 2g bid monitor renal fx closely (6) Troponin level elevated: chronically elevated in past no chest pain or ecg changes echo 12/2018 revealed EF 50-55%, LA boderline dilated trend x 2 (7) Paroxysmal atrial fibrillation: rate and rhythm controlled in ED not on oral anticoagulation due to fall risk (8) Elevated AST (SGOT): AST 71 no abdominal sx pt takes atorvastatin 40mg daily repeat LFT in a.m. - monitor (9) Parkinsons disease: recently prescribed sinemet, but has yet to start it hold off for now in setting of dehydration (10) Hypertension: blood pressure mildly elevated in ED 143/60, may be in setting of pain/hospitalization hold lasix, lisinopril for now 2/2 to dehydration monitor, resume when appropriate (11) Dementia: mood stable (12) DVT prophylaxis: SQ Heparin SCD/TEDS Disposition: admit to med/surg; case management consulted - pt likely to need acute rehab vs snf Follow up: PCP upon discharge Pt was seen and examined in collaboration with Dr. Salinas, please see addendum History of Present Illness Chief Complaint: Fall on buttocks trying to get off a chair prior to arrival. P [facility] Care Provider: Hermelinda Judge MD This is an 84-year-old female who has significant past medical history of Parkinson's disease, concern for Lewy body dementia, HTN, PAF, history of TIA who presents to [facility] ED secondary to fall off chair prior to arrival. She was sitting in her recliner and when she tried to get up she was unable to; therefo re, sliding off and fell on her bottom. She denies any loss of consciousness or injury. She was unable to get up on her own and was brought to ED for evaluation. Son is at bedside. She recalls all events. Over the past few days she has had 2 or 3 falls and has been otherwise unsteady on feet/week since most recent discharge. Last confined 05/16 through 05/18 secondary to worsening confusion. She was seen and evaluated by neurology at the time and was noted to have significant progression of her parkinsonism since last seen by neurology in December 2018. She also had elevated troponin which was thought to be chronic in nature. Psych was consulted also secondary to grief and recent loss of her . No new medications were prescribed at that time. She was recently seen by neurology in outpatient setting on 05/27 because of the worsening parkinsonism and feel for Lewy body dementia she was prescribed Sinemet. She has not yet started this medication. She denies any recent fever, chills, sweats, lightheadedness, dizziness, chest pain, shortness, palpitations, nausea, vomiting, diarrhea, change in bowel or urinary habits. She feels her appetite is otherwise okay. Son feels her mental status continues to decline. Allergies Allergy/AdvReac Type Severity Reaction Status Date / Time No Known Allergies Allergy Unverified 05/31/19 12:38 Home Medications Home Medications Medication Instructions Recorded Confirmed Type lisinopril 10 mg PO DAILY 01/08/19 05/31/19 History acetaminophen 1,000 mg PO Q8H PRN 05/16/19 05/31/19 History aspirin 81 mg PO DAILY 05/16/19 05/31/19 History atorvastatin 40 mg PO DAILY 05/16/19 05/31/19 History furosemide 20 mg PO DAILY 05/16/19 05/31/19 History multivitamin 1 tab PO DAILY 05/16/19 05/31/19 History potassium chloride 10 meq PO DAILY 05/16/19 05/31/19 History carbidopa-levodopa 0.5 tab PO DAILYBB 05/31/19 05/31/19 History Past Med/Surg History Medical History (Updated 05/31/19 @ 17:49 by Lisa Maher PA-C) History of TIA (transient ischemic attack) Hypertension (Acute) Parkinsons disease Paroxysmal atrial fibrillation Troponin level elevated (Acute) Surgical History History of hysterectomy History of knee surgery Family History Other Stroke Social History Preferred Language: Nepali Communication Ability: Effective Paver Layer Required: No Beliefs That Will Affect Care: None marital status: / Current Living Situation: Personal Care Facility Current Living Situation Comment: [facility] Other Information That Helps Us Care for You: No Feels Safe at Home: Yes Safety Concerns: Feels Safe At This Time Smoking Status: Never smoker Hx Alcohol Use: No Hx Substance Use: No Review of Systems Review of Systems: All systems reviewed & are unremarkable except as noted in HPI & below Physical Exam Physical Exam: Constitutional: WD/WN, elderly, female vitals as above, NAD, sitting up in bed, pleasant, conversing easily, occasionally talks in 3rd person which is normal per son Head: Normocephalic, Atraumatic Eyes: PERRL, conjunctivae normal, anicteric sclerae ENMT: external ear and nose normal, oropharynx with dry mucous membranes Neck: trachea midline, no thyromegaly normal visual inspection Respiratory: normal respiratory effort, lungs clear to auscultation, no wheeze, rales, rhonchi. Normal insp/exp effort, no accessory muscle use Cardiovascular: RRR, 3/6 blowing holosystolic murmur RUSB, no edema Vessels: no JVD or carotid bruit Chest: normal inspection of chest Abdomen: normal bowel sounds, soft, nontender, no hepatosplenomegaly Musculoskeletal: no cyanosis or clubbing, b/l knee with anterior bruising, R knee with Superior medial ecchymosis and swelling, tender to palpation at joint line Skin: no rashes, warm and dry normal turgor Neurologic: PERRL, EOMI, accommodation nl, no face palsy, no dysarthria CN's II-XI intact bilaterally and moves all extremities Psychiatric: A+O to self and place only, euthymic affect Lymphatic: no cervical or axillary lymphadenopathy : deferred Results & Data Vital Signs (Past 12 Hours) Vital Signs Temp Pulse Pulse Resp BP BP Pulse Ox 05/31/19 15:44 82 18 138/86 96 05/31/19 13:13 87 18 146/69 H 05/31/19 12:02 96 05/31/19 11:23 36.8 C 80 17 126/67 95 Laboratory Results Short CBC 05/31/19 05/31/19 Range/Units 12:18 12:18 WBC 9.04 (4.8-10.8) K/uL Hgb 13.9 (12.0-16.0) g/dL Hct 42.8 (37-47) % Plt Count 217 (130-400) K/uL BUN 27 H (7-18) mg/dl Creatinine 1.02 (0.6-1.2) mg/dl AST 71 H (15-37) U/L Troponin I 0.118 H* (0-0.045) ng/ml BMP 05/31/19 12:18 Sodium 140 Potassium 4.1 Chloride 106 Carbon Dioxide 31 BUN 27 H Creatinine 1.02 Glucose 119 H Calcium 9.2 Cardiac Enzymes 05/31/19 Range/Units 12:18 Troponin I 0.118 H* (0-0.045) ng/ml Liver Function 05/31/19 Range/Units 12:18 Total Bilirubin 0.9 (0.2-1) mg/dl AST 71 H (15-37) U/L ALT 49 (12-78) U/L Alkaline Phosphatase 57 (45-117) U/L Albumin 3.2 L (3.4-5.0) gm/dl Urine 05/31/19 Range/Units 14:14 Urine Color Dark Yellow Urine Appearance Clear (Clear) Urine pH 5.0 (4.5-7.5) Ur Specific Metcalfe 1.023 (1.000-1.030) Urine Protein Trace H (Negative) Urine Glucose (UA) Negative (Negative) Diagnostic Findings CXR: IMPRESSION: Stable cardiomegaly. No acute findings. Head CT: No intra or extra-axial mass lesions are visualized. There is no CT evidence of acute cortical infarction. There is no evidence of midline shift. There is no acute hemorrhage. No calvarial fractures are visualized. There are patchy white matter hypodensities likely on a small vessel basis. There is no evidence of pathologic ventricular dilatation. There is no evidence of acute sinusitis IMPRESSION: No acute intracranial findings Knee Xray: IMPRESSION: No fractures or dislocations identified. Pelvis Xray: IMPRESSION: No acute fractures or dislocations identified. Tibia/fibula xray: IMPRESSION: No acute fracture or dislocation. Medications Administered Discontinued Medications Sodium Chloride (Nss) 500 mls @ 999 mls/hr IV .Q31M CHAD Stop: 05/31/19 12:30 Last Infusion: 05/31/19 13:01 Dose: 0 mls/hr Documented by: [id number] Admin: 05/31/19 12:23 Dose: 999 mls/hr Documented by: [id number] ECG Rate (beats per minute): 74 Rhythm: sinus with SA Additional Comments: nonspecific intra-ventricular conduction delay Code Status & VTE Plan Code Status DNR VTE Prophylaxis Plan VTE Prophylaxis will be ordered: Yes Supervising Physician Co-Signing Physician Notes HISTORY: Record reviewed. Patient interviewed and examined. Care coordinated with Lisa Maher PA-C. Please refer to her documentation for complete history. Briefly, 84 YO female with history of dementia (possible Lewy body), Parkinsonian features (Parkinson's disease vs Lewy body dementia), and other problems. Lives at [facility]. Fell off a chair this morning and injured her knee. Can't recall specific nature of the call. about a month ago; PO intake has not been good. EXAM: General- no distress Lungs- clear to auscultation; no respiratory distress Cardiovascular- RRR; I/ systolic murmur at base; no gallop; no JVD; no pretibial edema Abdomen- + bowel sounds, soft, nontender Extremities- no cyanosis; no calf tenderness; contusion right knee Neuro- alert, oriented only to person; moderate cogwheel rigidity of upper extremities Skin- warm & dry DATA: Hemoglobin 13.9, white count 9040, platelet count 217,000. Normal electrolytes, BUN 27, creatinine 1.02, random glucose 119. Other lab studies as noted. Chest x-ray showed cardiomegaly, no acute findings. CT of head showed patchy white matter densities consistent with small vessel disease, no acute findings. X-ray of pelvis negative for fracture or dislocations. X-ray of left knee showed faint chondrocalcinosis, no fractures or dislocations. X-ray of left tibia/fibula negative for fractures. X-ray of right knee showed moderate degenerative changes, no fractures. EKG performed at 1207 reviewed and demonstrated baseline artifact, sinus rhythm/sinus arrhythmia at 74/ minute, left axis deviation, poor R wave progression.. ASSESSMENT AND PLAN: Dehydration. Acute kidney injury. IV fluids. Encourage PO fluid intake. Fall. Ambulatory dysfunction. Might have orthostatic hypotension from Lewy body dementia, worsened by dehydration. Check orthostatic VS. PT / OT. Dementia. Monitor for delirium. Avoid anticholinergic meds and other meds with AUDIOLOGY ASSISTANT side effects. Parkinson features. Parkinson's disease vs Parkinsonism from Lewy body dementia. Recently seen by Neurology. Consider trial of low-dose Sinemet when better. Please refer to JAGUAR Maher's documentation for discussion of other issues. (1) Dementia Dementia behavioral disturbance: without behavioral disturbance Dementia type: unspecified type Qualified Code(s): F03.90 - Unspecified dementia without behavioral disturbance (2) Hypertension Hypertension type: unspecified Qualified Code(s): I10 - Essential (primary) hypertension (3) Fall Encounter type: initial encounter Qualified Code(s): W19.XXXA - Unspecified fall, initial encounter
--- NOTE | 2019-05-31 18:04 | XRay Report ---
XR knee RT 1 or 2V routine CLINICAL HISTORY: R knee pain/effusion COMPARISON: None. DISCUSSION: Moderate degenerative change medial joint compartment. Lateral and patellofemoral joint c ompartments are well preserved. No significant joint effusion. Minimal scattered osteophytic reaction . There is no evidence for soft tissue swelling. IMPRESSION: Moderate degenerative change. No acute process. No significant joint effusion. The above report was generated using voice recognition software. It may contain grammatical, syntax or spelling errors. Electronically signed by: James Carpenter M.D. 05/31/2019 6:03 PM
[2019-05-31] MEDS ORDERED: SODIUM CHLORIDE 0.9% 1000ML 1,000 ML IV SCH (18:52)
[2019-05-31] MEDS ORDERED: POLYETHYLENE (MIRALAX) 17 GM PACK PO PRN (18:52)
[2019-05-31] MEDS ORDERED: ALUMINUM/MAGNESIUM SUSP 30 ML UDC PO PRN (18:52)
[2019-05-31] MEDS ORDERED: MAGNESIUM HYDROXIDE SUSP 30 ML UDC PO PRN (18:52)
[2019-05-31] MEDS ORDERED: ACETAMINOPHEN 325 MG TAB PO PRN (18:52)
[2019-05-31] MEDS ORDERED: ONDANSETRON INJ 2 MG/ML 2 ML VIAL IV PRN (18:52)
[2019-05-31] MEDS ORDERED: MICONAZOLE NITRATE POWDER 43 GM ONE (20:37)
[2019-05-31] MEDS: HEPARIN SOD 5,000 UNIT/0.5 ML VIAL SQ SCH (21:12)
[2019-05-31] MEDS: DICLOFENAC SOD 1% GEL 100 GM TUBE EXT SCH (21:13)
[2019-06-01 05:54] LABS: Hematocrit (blood only) 37.8 % (37-47); Hemoglobin 12.2 g/dL (12.0-16.0); Mean Corpuscular Hemoglobin 27.5 pg (25-34); Mean Corpuscular Hgb Conc 32.3 g/dL (32-36); Mean Corpuscular Volume 85.1 fL (80-100); Mean Platelet Volume 9.7 fL (7.4-10.4); Platelet Count 197 K/uL (130-400); RDW Coefficient of Variation 14.8 % (11.5-14.5); RDW Standard Deviation 45.9 fL (36.4-46.3); Red Blood Count 4.44 M/uL (4.2-5.4); White Blood Count 5.42 K/uL (4.8-10.8)
[2019-06-01] MEDS ORDERED: CARBIDOPA/LEVODOPA 25/100MG TAB PO SCH ×2 (06:30)
[2019-06-01 06:36] LABS: Albumin Globulin Ratio 0.8 (0.9-2); Albumin Level 2.8 gm/dl (3.4-5.0); Bilirubin,Total 0.9 mg/dl (0.2-1); Calcium 8.3 mg/dl (8.5-10.1); Creatinine Clr Calc Pharmacy 62.5 ml/min; Est GFR (Non-African American) 82.8; Globulin 3.3 gm/dl (2.5-4.0); Potassium 3.6 mmol/L (3.5-5.1); Total Protein 6.1 gm/dl (6.4-8.2)
[2019-06-01] MEDS: DICLOFENAC SOD 1% GEL 100 GM TUBE EXT SCH ×2 (08:16→20:19)
[2019-06-01] MEDS: MULTIVITAMIN TAB PO SCH (08:17)
[2019-06-01] MEDS: POTASSIUM CHLORIDE 10 MEQ TABCR PO SCH (08:17)
[2019-06-01] MEDS: ATORVASTATIN 40 MG TAB PO SCH (08:17)
[2019-06-01] MEDS: ASPIRIN 81 MG ECTAB PO SCH (08:17)
[2019-06-01] MEDS: HEPARIN SOD 5,000 UNIT/0.5 ML VIAL SQ SCH ×2 (08:17→20:30)
--- NOTE | 2019-06-01 17:46 | Hospitalist Progress Note ---
Date of Service June 01, 2019 Assessment & Plan (1) Ambulatory dysfunction: (2) Fall: (3) Weakness: This is an 84-year-old female who has significant past medical history of Parkinson's disease, concern for Lewy body dementia, HTN, PAF, history of TIA who presents to [facility] ED secondary to fall off chair prior to arrival. Patient recent hospital confinement 05/16-05/18 2/2 confusion. She was discharged back to assisted living facility where she continues to have difficulty with ambulation, frequent falls. She does ambulate with walker. Head CT was negative for acute abnormality. Left knee x-ray, pelvis x-ray and tib-fib x-ray negative for acute fracture or dislocation. Chest x-ray negative for acute cardiopulmonary abnormality. CBC relatively unremarkable. CMP revealed elevated BUN 27, creatinine 1.02, ratio 26.7, glucose 119, AST 71, troponin 0.118, TSH WNL Urinalysis was negative for infection but is clinical dehydration. Denies any symptoms except some leg pain, which was unremarkable on examination Has been waiting to get physical therapy Likely to go back to assisted living facility in a day or 2 (4) MAGALY (acute kidney injury): baseline cr 0.5 bun/cr today 27 and 1.02 likely pre renal in setting of dehydration received 500ml of IVF while in ED continue IVF 75 cc/hr x 1 L Creatinine has been normalized to 0.62 (5) Right knee pain: traumatic 2/2 to fall mild effusion superior/medially with ecchymosis obtain R knee xray voltaren gel 2g bid Surprisingly she complained pain in the left knee and left foot Examination did not reveal any acute arthritis in any of the joints She will continue to have physical therapy (6) Troponin level elevated: chronically elevated in past no chest pain or ecg changes echo 12/2018 revealed EF 50-55%, LA boderline dilated trend x 2 Troponin remains elevated but did not show any increasing level-seems to be chronic (7) Paroxysmal atrial fibrillation: rate and rhythm controlled in ED not on oral anticoagulation due to fall risk Heart rate remains controlled (8) Elevated AST (SGOT): AST 71 no abdominal sx pt takes atorvastatin 40mg daily repeat LFT in a.m. -LFTs are improved with decrease in AST to 56 from 71 (9) Parkinsons disease: recently prescribed sinemet, but has yet to start it hold off for now in setting of dehydration Will restart antiparkinsonian medications (10) Hypertension: blood pressure mildly elevated in ED 143/60, may be in setting of pain/hospitalization hold lasix, lisinopril for now 2/2 to dehydration monitor, resume when appropriate (11) Dementia: mood stable (12) DVT prophylaxis: SQ Heparin SCD/TEDS Disposition: admit to med/surg; case management consulted - pt likely to need acute rehab vs snf Follow up: PCP upon discharge Continue PT and OT evaluation Likely be discharged in a day or 2 Subjective 06/01 The patient was seen and examined in medical floor She is an 84-year-old female who has significant past medical history of Parkinson's disease, concern for Lewy body dementia, HTN, PAF, history of TIA who presents to [facility] ED secondary to fall off chair prior to arrival. She denies any significant symptoms except pain in the left foot She wants to be discharged Review of Systems Review of Systems: All systems reviewed and are unremarkable except as noted below Musculoskeletal: Has osteoarthritic changes involving multiple joints but does not have any acute arthritis in any of the joints Physical Exam Physical Exam: Sitting on a chair without any acute symptoms Constitutional: well developed and well nourished; no acute distress and not ill appearing Eyes: PERRL, conjunctivae normal, anicteric sclerae ENMT: external ear and nose normal, oropharynx normal Neck: trachea midline, no thyromegaly Respiratory: normal respiratory effort; no respiratory distress Auscultation: lungs clear to auscultation bilaterally Cardiovascular: Rate/Rhythm: regular rate and regular rhythm Heart Sounds: no murmur Gastrointestinal (Abdomen): Inspection/Auscultation: abdomen normal to inspection and normal bowel sounds; abdomen not distended Percussion/Palpation: abdomen soft Musculoskeletal: No acute arthritis but does have osteoarthritic changes Neurologic: moves all extremities; no focal motor deficits Alert, awake and oriented x3. No focal sensory and motor deficit appreciated Psychiatric: A+Ox3, euthymic affect Results & Data Vital Signs (Past 12 Hours) Vital Signs Temp Pulse Resp BP Pulse Ox 06/01/19 15:05 36.9 C 71 16 120/78 96 06/01/19 07:24 36.8 C 78 18 164/94 H 94 Laboratory Results Short CBC 06/01/19 Range/Units 05:41 WBC 5.42 (4.8-10.8) K/uL Hgb 12.2 (12.0-16.0) g/dL Hct 37.8 (37-47) % Plt Count 197 (130-400) K/uL BMP 06/01/19 05:41 Sodium 141 Potassium 3.6 Chloride 109 H Carbon Dioxide 28 BUN 20 H Creatinine 0.62 D Glucose 108 H Calcium 8.3 L Cardiac Enzymes 05/31/19 06/01/19 Range/Units 18:55 00:17 Troponin I 0.119 H* 0.117 H* (0-0.045) ng/ml Liver Function 06/01/19 Range/Units 05:41 Total Bilirubin 0.9 (0.2-1) mg/dl AST 56 H (15-37) U/L ALT 55 (12-78) U/L Alkaline Phosphatase 48 (45-117) U/L Albumin 2.8 L (3.4-5.0) gm/dl Medications Administered Current Inpatient Medications Acetaminophen (Tylenol) 650 mg PO Q4H PRN PRN Reason: pain/fever Stop: 06/30/19 18:51 Al Hydrox/Mg Hydrox/Simethicone (Maalox) 30 ml PO Q6H PRN PRN Reason: Dyspepsia Stop: 06/30/19 18:51 Aspirin (Ecotrin Ectab) 81 mg PO DAILY CHAD Stop: 07/01/19 08:59 Last Admin: 06/01/19 08:17 Dose: 81 mg Documented by: Atorvastatin Calcium (Lipitor) 40 mg PO DAILY CHAD Stop: 07/01/19 08:59 Last Admin: 06/01/19 08:17 Dose: 40 mg Documented by: Carbidopa/Levodopa (Sinemet 25/100 Mg) 0.5 tab PO DAILYBB [facility] Stop: 07/01/19 06:29 Diclofenac Sodium (Voltaren 1% Top) 2 gm EXT BID CHAD Stop: 06/30/19 20:59 Last Admin: 06/01/19 08:16 Dose: 2 gm Documented by: Heparin Sodium (Porcine) (Heparin Sodium (Porcine)) 5,000 units SQ Q12 CHAD Stop: 06/30/19 20:59 Last Admin: 06/01/19 08:17 Dose: 5,000 units Documented by: Magnesium Hydroxide (Milk Of Magnesia) 30 ml PO Q6H PRN PRN Reason: Constipation Stop: 06/30/19 18:51 Multivitamins (Multivitamin Tab) 1 tab PO DAILY CHAD Stop: 07/01/19 08:59 Last Admin: 06/01/19 08:17 Dose: 1 tab Documented by: Ondansetron HCl (Zofran) 4 mg IV Q6H PRN PRN Reason: Nausea Stop: 06/30/19 18:51 Polyethylene Glycol (Miralax Powder Packet) 17 gm PO DAILY PRN PRN Reason: Constipation Stop: 06/30/19 18:51 Potassium Chloride (Klor-Con M10) 10 meq PO DAILY CHAD Stop: 07/01/19 08:59 Last Admin: 06/01/19 08:17 Dose: 10 meq Documented by: (1) Fall Encounter type: initial encounter Qualified Code(s): W19.XXXA - Unspecified fall, initial encounter (2) Hypertension Hypertension type: unspecified Qualified Code(s): I10 - Essential (primary) hypertension (3) Dementia Dementia behavioral disturbance: without behavioral disturbance Dementia type: unspecified type Qualified Code(s): F03.90 - Unspecified dementia without behavioral disturbance
[2019-06-02] MEDS ORDERED: CARBIDOPA/LEVODOPA 25/100MG TAB PO SCH (06:30)
[2019-06-02 06:48] LABS: Basophils # (auto) 0.01 K/uL (0-0.2); Basophils % (auto) 0.2 %; Eosinophils # (auto) 0.13 K/uL (0-0.5); Eosinophils % (auto) 2.9 %; Hematocrit (blood only) 40.4 % (37-47); Immature Granulocytes # (auto) 0.01 K/uL (0.00-0.02); Immature Granulocytes % (auto) 0.2 %; Lymphocytes # (auto) 0.84 K/uL (1.2-3.4); Lymphocytes % (auto) 18.7 %; Mean Corpuscular Hemoglobin 27.4 pg (25-34); Mean Corpuscular Hgb Conc 32.2 g/dL (32-36); Mean Corpuscular Volume 85.2 fL (80-100); Mean Platelet Volume 9.9 fL (7.4-10.4); Monocytes # (auto) 0.36 K/uL (0.11-0.59); Neutrophils # (auto) 3.14 K/uL (1.4-6.5); Platelet Count 211 K/uL (130-400); RDW Coefficient of Variation 14.6 % (11.5-14.5); RDW Standard Deviation 45.6 fL (36.4-46.3); Red Blood Count 4.74 M/uL (4.2-5.4); White Blood Count 4.49 K/uL (4.8-10.8)
[2019-06-02 07:28] LABS: BUN Creatinine Ratio 22.4 (10-20); Calcium 8.9 mg/dl (8.5-10.1); Creatinine Clr Calc Pharmacy 69.2 ml/min; Est GFR (African American) 99.2; Est GFR (Non-African American) 85.6; Magnesium 1.9 mg/dl (1.8-2.4); Phosphorus 2.9 mg/dl (2.5-4.9); Potassium 3.9 mmol/L (3.5-5.1)
[2019-06-02] MEDS: DICLOFENAC SOD 1% GEL 100 GM TUBE EXT SCH (08:57)
[2019-06-02] MEDS: ATORVASTATIN 40 MG TAB PO SCH (08:57)
[2019-06-02] MEDS: ASPIRIN 81 MG ECTAB PO SCH (08:57)
[2019-06-02] MEDS: MULTIVITAMIN TAB PO SCH (08:57)
[2019-06-02] MEDS: HEPARIN SOD 5,000 UNIT/0.5 ML VIAL SQ SCH (08:57)
[2019-06-02] MEDS: POTASSIUM CHLORIDE 10 MEQ TABCR PO SCH (08:57)
[2019-06-02] MEDS ORDERED: MICONAZOLE NITRATE POWDER 43 GM EXT PRN (10:03)
--- NOTE | 2019-06-02 13:43 | Discharge Summary ---
Date of Service June 02, 2019 Admission HPI Per Admitting Provider This is an 84-year-old female who has significant past medical history of Parkinson's disease, concern for Lewy body dementia, HTN, PAF, history of TIA who presents to [facility] secondary to fall off chair prior to arrival. She was sitting in her recliner and when she tried to get up she was unable to; therefore, sliding off and fell on her bottom. She denies any loss of consciousness or injury. She was unable to get up on her own and was brought to ED for evaluation. Son is at bedside. She recalls all events. Over the past few days she has had 2 or 3 falls and has been otherwise unsteady on feet/week since most recent discharge. Last confined 05/16 through 05/18 secondary to worsening confusion. She was seen and evaluated by neurology at the time and was noted to have significant progression of her parkinsonism since last seen by neurology in December 2018. She also had elevated troponin which was thought to be chronic in nature. Psych was consulted also secondary to grief and recent loss of her . No new medications were prescribed at that time. She was recently seen by neurology in outpatient setting on 05/27 because of the worsening parkinsonism and feel for Lewy body dementia she was prescribed Sinemet. She has not yet started this medication. She denies any recent fever, chills, sweats, lightheadedness, dizziness, chest pain, shortness, palpitations, nausea, vomiting, diarrhea, change in bowel or urinary habits. She feels her appetite is otherwise okay. Son feels her mental status continues to decline. Admission Exam Per Admitting Provider Constitutional: WD/WN, elderly, female vitals as above, NAD, sitting up in bed, pleasant, conversing easily, occasionally talks in 3rd person which is normal per son Head: Normocephalic, Atraumatic Eyes: PERRL, conjunctivae normal, anicteric sclerae ENMT: external ear and nose normal, oropharynx with dry mucous membranes Neck: trachea midline, no thyromegaly normal visual inspection Respiratory: normal respiratory effort, lungs clear to auscultation, no wheeze, rales, rhonchi. Normal insp/exp effort, no accessory muscle use Cardiovascular: RRR, 3/6 blowing holosystolic murmur RUSB, no edema Vessels: no JVD or carotid bruit Chest: normal inspection of chest Abdomen: normal bowel sounds, soft, nontender, no hepatosplenomegaly Musculoskeletal: no cyanosis or clubbing, b/l knee with anterior bruising, R knee with Superior medial ecchymosis and swelling, tender to palpation at joint line Skin: no rashes, warm and dry normal turgor Neurologic: PERRL, EOMI, accommodation nl, no face palsy, no dysarthria CN's II-XI intact bilaterally and moves all extremities Psychiatric: A+O to self and place only, euthymic affect Lymphatic: no cervical or axillary lymphadenopathy : deferred Principal Diagnosis Dehydration, MAGALY, ambulatory dysfunction, dementia, Parkinson's dis. Discharge Exam Physical Exam: Pleasant elderly female, lying in bed, in no acute distress Constitutional: well developed and well nourished; no acute distress and not ill appearing Eyes: PERRL, EOMI, conjunctivae normal, anicteric sclerae ENMT: external ear and nose normal, oropharynx normal Neck: trachea midline, no thyromegaly Respiratory: normal respiratory effort; no respiratory distress Auscultation: lungs clear to auscultation bilaterally Cardiovascular: Rate/Rhythm: regular rate and regular rhythm Heart Sounds: no murmur Gastrointestinal (Abdomen): Inspection/Auscultation: abdomen normal to inspection and normal bowel sounds; abdomen not distended Percussion/Palpation: abdomen soft Musculoskeletal: No acute arthritis but does have osteoarthritic changes Neurologic: moves all extremities; no focal motor deficits Alert, awake and oriented x3. No focal sensory and motor deficit appreciated Psychiatric: A+Ox3, euthymic affect Discharge Data Allergies Allergy/AdvReac Type Severity Reaction Status Date / Time No Known Allergies Allergy Unverified 05/31/19 12:38 Consultations 05/31/19 15:58 ED Decision to Admit Stat 05/31/19 18:52 Consult Case Management - Discharge Planning Routine Ordered Studies 05/31/19 12:00 CT head/brain wo con Stat FINDINGS: No intra or extra-axial mass lesions are visualized. There is no CT evidence of acute cortical infarction. There is no evidence of midline shift. There is no acute hemorrhage. No calvarial fractures are visualized. There are patchy white matter hypodensities likely on a small vessel basis. There is no evidence of pathologic ventricular dilatation. There is no evidence of acute sinusitis IMPRESSION: No acute intracranial findings XR knee LT 1 or 2V routine CLINICAL HISTORY: Left knee pain status post trauma COMPARISON: None. DISCUSSION: There is faint medial chondrocalcinosis. No fractures or dislocations are visualized. IMPRESSION: No fractures or dislocations identified. XR knee RT 1 or 2V routine CLINICAL HISTORY: R knee pain/effusion COMPARISON: None. DISCUSSION: Moderate degenerative change medial joint compartment. Lateral and patellofemoral joint compartments are well preserved. No significant joint effusion. Minimal scattered osteophytic reaction. There is no evidence for soft tissue swelling. IMPRESSION: Moderate degenerative change. No acute process. No significant joint effusion. XR tibia fibula LT 2V HISTORY: 84 years-old Female fall acute left lower leg pain status post fall COMPARISON: Left knee radiographs of same day TECHNIQUE: 2 views of the left tibia and fibula FINDINGS: Mildly demineralized appearance of the bones. Mild degenerative changes of the knee and ankle. Subcentimeter bone island of the medial femoral condyle. No acute fracture or dislocation. IMPRESSION: No acute fracture or dislocation. XR pelvis 1-2V routine CLINICAL HISTORY: Pelvic pain status post trauma COMPARISON: 05/16/2019 DISCUSSION: Degenerative changes are present within the lower lumbar spine. There is no SI joint diastases. There is no symphysis diastases. No acute fractures are visualized. There are no dislocations. IMPRESSION: No acute fractures or dislocations identified. LABS 06/02/19 06/02/19 Range/Units 06:28 06:28 WBC 4.49 L (4.8-10.8) K/uL RBC 4.74 (4.2-5.4) M/uL Hgb 13.0 (12.0-16.0) g/dL Hct 40.4 (37-47) % MCV 85.2 (80-100) fL MCH 27.4 (25-34) pg MCHC 32.2 (32-36) g/dL RDW Std Deviation 45.6 (36.4-46.3) fL RDW Coeff of Reece 14.6 H (11.5-14.5) % Plt Count 211 (130-400) K/uL MPV 9.9 (7.4-10.4) fL Immature Gran % (Auto) 0.2 % Neut % (Auto) 70.0 % Lymph % (Auto) 18.7 % Garfield % (Auto) 8.0 % Eos % (Auto) 2.9 % Baso % (Auto) 0.2 % Immature Gran # (Auto) 0.01 (0.00-0.02) K/uL Neut # (Auto) 3.14 (1.4-6.5) K/uL Lymph # (Auto) 0.84 L (1.2-3.4) K/uL Garfield # (Auto) 0.36 (0.11-0.59) K/uL Eos # (Auto) 0.13 (0-0.5) K/uL Baso # (Auto) 0.01 (0-0.2) K/uL Sodium 139 (136-145) mmol/L Potassium 3.9 (3.5-5.1) mmol/L Chloride 106 (98-107) mmol/L Carbon Dioxide 29 (21-32) mmol/L Anion Gap 4.0 (3-11) BUN 13 (7-18) mg/dl Creatinine 0.56 L (0.6-1.2) mg/dl Est Cr Clr Drug Dosing 69.2 ml/min Est GFR ( Amer) 99.2 Est GFR (Non-Af Amer) 85.6 BUN/Creatinine Ratio 22.4 H (10-20) Glucose 104 H (70-99) mg/dl Calcium 8.9 (8.5-10.1) mg/dl Phosphorus 2.9 (2.5-4.9) mg/dl Magnesium 1.9 (1.8-2.4) mg/dl Hospital Course (1) Ambulatory dysfunction: (2) Fall: (3) Weakness: This is an 84-year-old female who has significant past medical history of Parkinson's disease, concern for Lewy body dementia, HTN, PAF, history of TIA who presents to [facility] secondary to fall off chair prior to arrival. Patient recent hospital confinement 05/16-05/18 2/2 confusion. She was discharged back to assisted living facility where she continues to have difficulty with ambulation, frequent falls. She does ambulate with walker. Head CT was negative for acute abnormality. Left knee x-ray, pelvis x-ray and tib-fib x-ray negative for acute fracture or dislocation. Chest x-ray negative for acute cardiopulmonary abnormality. CBC relatively unremarkable. CMP revealed elevated BUN 27, creatinine 1.02, ratio 26.7, glucose 119, AST 71, troponin 0.118, TSH WNL Urinalysis was negative for infection but is clinical dehydration. Denies any symptoms except some leg pain, which was unremarkable on examination Plan for short term inpt rehab (4) MAGALY (acute kidney injury): - resolved baseline Cr 0.5 bun/cr 27 and 1.02 likely pre renal in setting of dehydration received 500ml of IVF while in ED continue IVF 75 cc/hr x 1 L Creatinine normalized to 0.56 (5) Right knee pain: traumatic 2/2 to fall mild effusion superior/medially with ecchymosis obtain R knee xray voltaren gel 2g bid Surprisingly she complained pain in the left knee and left foot Examination did not reveal any acute arthritis in any of the joints She will continue to have physical therapy (6) Troponin level elevated: chronically elevated in past no chest pain or ecg changes echo 12/2018 revealed EF 50-55%, LA boderline dilated Troponin remains elevated but did not show any increasing level-seems to be chronic (7) Paroxysmal atrial fibrillation: rate and rhythm controlled in ED not on oral anticoagulation due to fall risk Heart rate remains controlled (8) Elevated AST (SGOT): AST 71 no abdominal sx pt takes atorvastatin 40mg daily repeated LFTs -LFTs are improved with decrease in AST to 56 from 71 (9) Parkinsons disease: recently prescribed sinemet, but has yet to start it holding off on admission in setting of dehydration Restarted antiparkinsonian medications -patient should be taking half a tablet of Sinemet, daily for 1 week, then half a tablet twice a day for a week, and then half a tablet 3 times a day (10) Hypertension: blood pressure mildly elevated in ED 143/60, may be in setting of pain/hospitalization held lasix, lisinopril 2/2 to dehydration -Can restart lisinopril now, her creatinine at baseline -Resume Lasix as appropriate, in the next of couple days after follow-up with her PCP (11) Dementia: mood stable Total Time Total Time Spent Total Time Spent (In Minutes): 45 Total Time Includes: Examination of the Patient, Discharge Planning, Medication Reconciliation and Communication With Other Providers Discharge Plan Discharge Items Patient Disposition: Transfer Inpatient Rehab Fac Reason For Visit: DEHYDRATIION, AMBULATORY DYSFUNCTION Discharge Diagnosis: Dehydration, MAGALY, ambulatory dysfunction, dementia, Parkinson's dis. Activity: Resume your previous activity Activity Comment: As tolerated/ per physical therapist Non-emergency contact: Primary Care Provider and Neurologist Call non-emergency contact if: you have any medication questions and your symptoms worsen Follow-up/Referrals: Hermelinda Judge MD [Primary Care Provider] - Diet: Heart Healthy Addtl Attending Provider Instructions: You can restart your lisinopril, however do not take furosemide (Lasix) yet and discuss this with your primary care provider within the next couple of days. You were recently prescribed Sinemet. Take half a tablet daily for 1 week, then half a tablet twice a day for a week, and then half a tablet 3 times a day. You should follow-up with your neurologist. Pending Studies at Discharge: No Stand-Alone Forms: My [facility] Skilled Items Patient informed of condition?: Yes DNR: Yes Discharge Level of Care: Acute rehab Communicable Disease: No Discharge Prognosis: Stable Lines: None Urinary Catheter: No Medications and DC Order Prescriptions: New diclofenac sodium [Voltaren] 1 % Gel 2 g EXT BID 5 Days Qty: 100 RF: 0 Continued lisinopril 10 mg tablet 10 mg PO DAILY RF: 0 carbidopa-levodopa 25-100 mg tablet 0.5 tab PO DAILYBB RF: 0 atorvastatin 40 mg tablet 40 mg PO DAILY RF: 0 potassium chloride 10 mEq capsule, extended release 10 meq PO DAILY RF: 0 aspirin 81 mg tablet,delayed release (DR/EC) 81 mg PO DAILY RF: 0 multivitamin Tablet 1 tab PO DAILY RF: 0 acetaminophen 500 mg Tablet 1,000 mg PO Q8H PRN (Reason: Pain) RF: 0 Discontinued furosemide 20 mg tablet 20 mg PO DAILY RF: 0 Discharge Orders: Discharge Order (Routine); Ordered 06/02/19 Ordered By: Kory Flores Admission Data Admit Date/Time: 05/31/19 17:01 Attending Provider: Kory Flores Admit Provider: Panda Salinas Primary Care Provider: Hermelinda Judge [facility] ; Panda Salinas ; Zeynep Landon
[2019-06-08] MEDS ORDERED: CARBIDOPA/LEVODOPA 25/100MG TAB PO SCH (09:00)
[2019-06-16] MEDS ORDERED: CARBIDOPA/LEVODOPA 25/100MG TAB PO SCH (09:00)
== END 2019-06-02 15:32 ==
LOC: 4W 11:16 → ED 11:16 → SUATTDRO 17:01 → 4W 18:27

== ENCOUNTER 2021-09-24 10:32 | Observation (INO) ==
--- NOTE | 2021-09-24 11:15 | Emergency Department Note ---
Impression & Plan Altered mental status, Weakness, Dementia, Acute leg pain ED Provider Note NAME: LINDSAY HERNANDEZ AGE: 86 SEX: F : 1935 ARRIVES VIA: Ambulance INFORMANT: Patient, Son, EMS ED PROVIDER(S): Cornelio Romero DO CHIEF COMPLAINT: Confusion and right leg pain HPI: Patient is an 86-year-old female with a past medical history of paroxysmal A. fib, MAGALY, dementia, Parkinson's, hypertension who presents the ER via EMS for confusion. The son notes that she has been off-and-on confused for the past 7 days. She is also been complaining of pain in her right leg for the past 10 to 7 days. She denies any headache or change in vision. No chest pain or shortness of breath. No belly pain. She is having some urinary retention consequently placed a Torres there several days ago and the UA was negative. Son notes that she is at her baseline today currently. ROS: See above HPI for pertinent positives & negatives. A total of 10 systems reviewed and were otherwise negative. PAST MEDICAL HISTORY:See Below PAST SURGICAL HISTORY:See Below FAMILY HISTORY:See Below SOCIAL HISTORY:See Below HOME MEDICATIONS:See Below ALLERGIES:See Below VITALS:See Below PHYSICAL EXAMINATION: GENERAL: Sitting up in bed, alert, well appearing, well nourished, no distress, non-toxic EYE EXAM: normal conjunctiva. PERRL and EOM's intact. OROPHARYNX: no exudate, no erythema, lips, buccal mucosa, and tongue normal and mucous membranes are moist NECK: supple, no nuchal rigidity, no adenopathy, non-tender LUNGS: Clear to auscultation. Normal chest wall mechanics HEART: no murmurs, S1 normal and S2 normal ABDOMEN: abdomen soft, non-tender, normo-active bowel sounds, no masses, no blaise ound or guarding. UPPER EXTREMITIES: upper extremities are grossly normal. LOWER EXTREMITIES: No pitting edema. NEURO EXAM: Sitting up in bed oriented to person, not place or year, cranial nerves II-XII grossly intact, normal speech, no weakness of arms, slight weakness in the right leg as she is able to lift off the bed but not as high as she complains of pain. No drift. [id number]-ik-ccto intact. MEDICAL DECISION MAKING: Patient is an 86-year-old female pleasantly confused the presents ER for above- stated complaint. IV was established blood was obtained. Labs show no significant leukocytosis or anemia. BMP along with LFTs bilirubin and lipase was unremarkable. UA was clean. Covid negative. CT head was unremarkable. CT abdomen pelvis was fairly benign as well. Duplex of the right lower extremity was negative. [facility] is no longer able to take care of her and consequently she was admitted to the hospital for further placement. Triage Nursing notes reviewed. Limited review of prior medical records performed Vital Signs: reviewed and remarkable for HTN Differential diagnosis: Differential diagnoses includes but is not limited to toxic, metabolic, infectious, traumatic, cardiac, neurologic, hematologic, psychiatric and inflammatory etiologies. ER treatment provided: See below Diagnostics interpreted by me: ECG: Sinus rhythm rate of 70 Left axis Left bundle QTC 468 T wave inversion in the high lateral leads Cardiac Monitoring: An order was placed for continuous cardiac monitoring. The monitor shows a rate of 72 with sinus rhythm. Laboratory studies: As stated above and show below. Imaging studies: CT head, abdomen pelvis and venous Doppler were negative Consultation(s): Discussed with the hospitalist for further evaluation Procedures: none Critical Care: None Past Med/Surg History Medical History (Updated 09/24/21 @ 18:08 by Cornelio Romero DO) Dementia Dyslipidemia History of TIA (transient ischemic attack) 2019 Hypertension Left bundle branch block Parkinsons disease Paroxysmal atrial fibrillation Troponin level elevated Surgical History History of hysterectomy History of knee surgery Family History Other Stroke Social History Smoking Status: Never smoker Hx Alcohol Use: No Hx Substance Use: No Preferred Language: Sinhala Communication Ability: Impaired Oracle Erp Developer Required: No Beliefs That Will Affect Care: None marital status: / Current Living Situation: Personal Care Facility Current Living Situation Comment: [facility] How many Children do You have: 4 Feels Safe at Home: Yes Assistive Devices: Walker Allergies Allergies Allergy/AdvReac Type Severity Reaction Status Date / Time No Known Allergies Allergy Unverified 09/24/21 11:47 Home Meds Home Medications Medication Instructions Recorded Confirmed lisinopril 10 mg tablet 10 mg PO DAILY 01/08/19 09/24/21 aspirin 81 mg tablet,delayed 81 mg PO DAILY 05/16/19 09/24/21 release atorvastatin 40 mg tablet 40 mg PO DAILY 05/16/19 09/24/21 multivitamin 1 tab PO DAILY 05/16/19 09/24/21 carbidopa 25 mg-levodopa 100 mg 0.5 tab PO BIDWMEAL 05/31/19 09/24/21 tablet acetaminophen 500 mg tablet 1,000 mg PO Q8 PRN 09/22/21 09/24/21 (Tylenol Extra Strength) diclofenac sodium 1 % topical gel 2 g TOPICAL QID PRN 09/22/21 09/24/21 docusate sodium 50 mg capsule 100 mg PO BID 09/22/21 09/24/21 furosemide 20 mg tablet 20 mg PO 3XWK 09/22/21 09/24/21 loperamide 2 mg capsule 2 mg PO QID PRN 09/22/21 09/24/21 loratadine 10 mg tablet (Claritin) 10 mg PO HS 09/22/21 09/24/21 melatonin 3 mg tablet 3 mg PO HS 09/22/21 09/24/21 ondansetron HCl 4 mg tablet 4 mg PO Q6 PRN 09/22/21 09/24/21 peg 400-propylene glycol 0.4 %-0.3 1 drp OPHTHALMIC (EYE) BID 09/22/21 09/24/21 % eye gel drops (Systane Gel) potassium chloride 10 mEq 10 meq PO 3XWK 09/22/21 09/24/21 capsule,extended release sennosides 8.6 mg-docusate sodium 1 tab-cap PO DAILY PRN 09/22/21 09/24/21 50 mg tablet (Senna Plus) Results & Data (ED) Vital Signs Vital Signs - 24 hr 09/24/21 10:45 09/24/21 12:00 09/24/21 13:16 Temperature 36.6 C Temperature Source Oral Pulse Rate 74 70 67 Respiratory Rate 20 21 15 Respiratory Effort / Characteristics Non-Labored Spontaneous Respiratory Depth Normal Respiratory Pattern Regular Blood Pressure 155/93 H 157/90 H 156/85 H Blood Pressure Mean 113 112 108 Blood Pressure Position Lying Pulse Oximetry 95 96 95 Oxygen Delivery Method Room Air Sepsis Recent Fever Within 48 Hours No Sepsis New/Unexplained Change in Mental Status Yes Sepsis Action Taken by Nursing No Action Required 09/24/21 14:00 Temperature Temperature Source Pulse Rate 76 Respiratory Rate 15 Respiratory Effort / Characteristics Respiratory Depth Respiratory Pattern Blood Pressure 167/79 H Blood Pressure Mean 108 Blood Pressure Position Pulse Oximetry 97 Oxygen Delivery Method Sepsis Recent Fever Within 48 Hours Sepsis New/Unexplained Change in Mental Status Sepsis Action Taken by Nursing Laboratory Data Result diagrams: 09/24/21 11:30 09/24/21 11:30 Lab Results 09/24/21 09/24/21 09/24/21 Range/Units 11:01 11:30 11:30 WBC 5.60 (4.8-10.8) K/uL RBC 5.22 (4.2-5.4) M/uL Hgb 14.1 (12.0-16.0) g/dL Hct 43.4 (37-47) % MCV 83.1 (80-100) fL MCH 27.0 (25-34) pg MCHC 32.5 (32-36) g/dL RDW Std Deviation 47.0 H (36.4-46.3) fL RDW Coeff of Reece 15.5 H (11.5-14.5) % Plt Count 219 (130-400) K/uL MPV 10.0 (7.4-10.4) fL Immature Gran % (Auto) 0.2 % Neut % (Auto) 76.3 % Lymph % (Auto) 11.4 % [place] % (Auto) 9.6 % Eos % (Auto) 2.3 % Baso % (Auto) 0.2 % Neut # (Auto) 4.27 (1.4-6.5) K/uL Lymph # (Auto) 0.64 L (1.2-3.4) K/uL [place] # (Auto) 0.54 (0.11-0.59) K/uL Eos # (Auto) 0.13 (0-0.5) K/uL Baso # (Auto) 0.01 (0-0.2) K/uL Immature Gran # (Auto) 0.01 (0.00-0.02) K/uL Sodium 140 (136-145) mmol/L Potassium 3.7 (3.5-5.1) mmol/L Chloride 106 (98-107) mmol/L Carbon Dioxide 30 (21-32) mmol/L Anion Gap 4 (3-11) BUN 16 (6-23) mg/dl Creatinine 0.59 L (0.6-1.2) mg/dl Est Cr Clr Drug Dosing 70.8 ml/min Est GFR ( Amer) 96.2 ml/min Est GFR (Non-Af Amer) 83.0 ml/min BUN/Creatinine Ratio 27.1 H (10-20) Glucose 85 (70-99(Fasting)) mg/dl POC Glucose 81 (70-99) mg/dl Calcium 9.0 (8.5-10.1) mg/dl Total Bilirubin 0.6 (0.2-1.0) mg/dl AST 22 (13-39) U/L ALT 5 L (7-52) U/L Alkaline Phosphatase 62 (34-104) U/L Total Protein 6.9 (6.0-8.3) gm/dl Albumin 3.6 (3.4-5.0) gm/dl Globulin 3.3 (2.5-4.0) gm/dl Albumin/Globulin Ratio 1.1 (0.9-2) Lipase 54 (11-82) U/L Urine Color Urine Appearance (Clear) Urine pH (4.5-7.5) Ur Specific [place] (1.000-1.030) Urine Protein (Negative) Urine Glucose (UA) (Negative) Urine Ketones (Negative) Urine Blood (Negative) Urine Nitrite (Negative) Urine Bilirubin (Negative) Urine Urobilinogen (Negative) Ur Leukocyte Esterase (Negative) SARS-CoV-2, RNA, NAAT (NEGATIVE) 09/24/21 09/24/21 Range/Units 11:30 13:10 WBC (4.8-10.8) K/uL RBC (4.2-5.4) M/uL Hgb (12.0-16.0) g/dL Hct (37-47) % MCV (80-100) fL MCH (25-34) pg MCHC (32-36) g/dL RDW Std Deviation (36.4-46.3) fL RDW Coeff of Reece (11.5-14.5) % Plt Count (130-400) K/uL MPV (7.4-10.4) fL Immature Gran % (Auto) % Neut % (Auto) % Lymph % (Auto) % [place] % (Auto) % Eos % (Auto) % Baso % (Auto) % Neut # (Auto) (1.4-6.5) K/uL Lymph # (Auto) (1.2-3.4) K/uL [place] # (Auto) (0.11-0.59) K/uL Eos # (Auto) (0-0.5) K/uL Baso # (Auto) (0-0.2) K/uL Immature Gran # (Auto) (0.00-0.02) K/uL Sodium (136-145) mmol/L Potassium (3.5-5.1) mmol/L Chloride (98-107) mmol/L Carbon Dioxide (21-32) mmol/L Anion Gap (3-11) BUN (6-23) mg/dl Creatinine (0.6-1.2) mg/dl Est Cr Clr Drug Dosing ml/min Est GFR ( Amer) ml/min Est GFR (Non-Af Amer) ml/min BUN/Creatinine Ratio (10-20) Glucose (70-99(Fasting)) mg/dl POC Glucose (70-99) mg/dl Calcium (8.5-10.1) mg/dl Total Bilirubin (0.2-1.0) mg/dl AST (13-39) U/L ALT (7-52) U/L Alkaline Phosphatase (34-104) U/L Total Protein (6.0-8.3) gm/dl Albumin (3.4-5.0) gm/dl Globulin (2.5-4.0) gm/dl Albumin/Globulin Ratio (0.9-2) Lipase (11-82) U/L Urine Color Yellow Urine Appearance Clear (Clear) Urine pH 7.5 (4.5-7.5) Ur Specific [place] 1.014 (1.000-1.030) Urine Protein Negative (Negative) Urine Glucose (UA) Negative (Negative) Urine Ketones Negative (Negative) Urine Blood Negative (Negative) Urine Nitrite Negative (Negative) Urine Bilirubin Negative (Negative) Urine Urobilinogen Negative (Negative) Ur Leukocyte Esterase Negative (Negative) SARS-CoV-2, RNA, NAAT NEGATIVE (NEGATIVE) Administered Medications Discontinued Medications Ioversol (Optiray 320 100ml) 95 ml IV ONCE ONE Stop: 09/24/21 13:03 Last Admin: 09/24/21 13:02 Dose: 95 ml Documented by: [id number] Imaging Data Radiologist's Impression: Abdomen/Pelvis CT 09/24/21 11:[address] WITH IV CONTRAST HISTORY: Acute lower abdominal pain lower bad pain TECHNIQUE: Multiaxial CT images of the abdomen and pelvis were performed following the IV administration of 95 cc of Optiray, A dose lowering technique was utilized adhering to the principles of ALARA. COMPARISON STUDY: CT abdomen and pelvis 09/22/2021 FINDINGS: Limited exam secondary to respiratory motion and upper extremity positioning. Cardiomegaly with fusiform dilation of the ascending thoracic aorta measuring up to 4.4 cm. Extensive coronary artery calcifications. Mild subsegmental bibasilar atelectasis/scarring. No pneumatosis or pneumoperitoneum. The spleen, mildly atrophic pancreas, gallbladder, adrenal glands and liver appear unremarkable. Patency of the hepatic and portal veins. No hydronephrosis. 1.1 cm exophytic mildly hyperdense lesion of the inferior pole right kidney with Hounsfield of 59 is unchanged and may represent a complex cyst. 9 mm left renal cyst. Symmetric enhancement of the kidneys. Decompressed urinary bladder with Torres catheter in place. Air within the urinary bladder is likely secondary to instrumentation. Atherosclerosis of the aorta without aneurysm. No adenopathy. Tiny hiatal hernia. Duodenal diverticulum. Colonic diverticulosis without acute diverticulitis. Noninflamed appendix. Scattered small bowel air-fluid levels. Nonobstructive bowel gas pattern. There are a few small bowel loops which are prominent measuring up to 2.9 cm transversely. Mild diastases recti. Degenera tive changes of the spine, pelvis and hips. No destructive bone lesions identified. IMPRESSION: 1. Limited exam as above. 2. No bowel obstruction or bowel wall thickening. Normal appendix. 3. Scattered small bowel air-fluid levels are likely physiologic. A nonspecific enteritis could appear similarly. 4. Colonic diverticulosis without acute diverticulitis. 5. Cardiomegaly with dilation of the ascending thoracic aorta measuring up to 4.4 cm. 6. Additional findings as above. ACT 112: Negative or not required by law. The above report was generated using voice recognition software. It may contain grammatical, syntax or spelling errors. Electronically signed by: Zane Copeland M.D. 09/24/2021 1:[address] 09/24/21 11:09 CT head/brain wo con CLINICAL HISTORY: ams Technique: Contiguous axial CT images of the head were acquired from the base of the skull to the vertex without intravenous contrast administration. Images were viewed in brain, subdural and bone windows. Automated dose lowering techniques and/or adjustment according to patient size were utilized for this exam. Comparison: Comparison is made to CT head 04/10/2019 Findings: Areas of decreased attenuation are present in the periventricular and subcortical white matter bilaterally consistent with small vessel ischemic disease. Generalized cerebral atrophy with commensurate enlargement of the ventricles, sulci, and cisterns is also present. There is no acute intracranial hemorrhage or evidence of acute territorial infarction. No shift of the midline structures, mass effect, or extra-axial abnormalities are shown. Atherosclerotic calcifications are present in the intracranial segments of the internal carotid arteries. Imaged portions of the paranasal sinuses and mastoid air cells are clear. The orbits appear normal. There are no acute fractures of the calvaria or scalp swelling. Impression: No acute intracranial hemorrhage, no evidence of acute territorial infarction or other acute intracranial disease process. ACT 112: Negative or not required by law. Electronically signed by: Stew Hdez M.D. 09/24/2021 1:16 PM Venous Doppler Study 09/24/21 11:09 US venous doppler LE RT CLINICAL HISTORY: rle pain TECHNIQUE: Right lower extremity real-time compression venous ultrasound with Color Doppler imaging. Utilizing real-time ultrasonic imaging multiple real time high-resolution ultrasonic images with compression and noncompression maneuvers of the deep venous system in addition to color doppler imaging were performed from the common femoral vein through the proximal calf veins. COMPARISON: None available at the time of this dictation. FINDINGS: Currently there is normal compressibility of the deep venous system from the common femoral vein through the proximal calf veins. No current evidence of a cute thrombosis is identified. Impression: No evidence of deep venous thrombus. ACT 112: Negative or not required by law. Electronically signed by: Stew Hdez M.D. 09/24/2021 2:27 PM Discharge Plan Visit Data Chief Complaint: Altered Mental Status Stated Complaint: URINARY RETENTION, WEAKNESS, AMS ED Provider: Cornelio Romero Discharge Problem: Altered mental status, Weakness, Dementia, Acute leg pain Patient Disposition: Admitted As Inpatient Discharge Instructions Interventions: ED Discharge Assessment Last Done: 09/24/21 17:09
[2021-09-24 11:42] LABS: Basophils # (auto) 0.01 K/uL (0-0.2); Basophils % (auto) 0.2 %; Eosinophils # (auto) 0.13 K/uL (0-0.5); Eosinophils % (auto) 2.3 %; Hematocrit (blood only) 43.4 % (37-47); Hemoglobin 14.1 g/dL (12.0-16.0); Immature Granulocytes # (auto) 0.01 K/uL (0.00-0.02); Immature Granulocytes % (auto) 0.2 %; Lymphocytes # (auto) 0.64 K/uL (1.2-3.4); Lymphocytes % (auto) 11.4 %; Mean Corpuscular Hgb Conc 32.5 g/dL (32-36); Mean Corpuscular Volume 83.1 fL (80-100); Monocytes # (auto) 0.54 K/uL (0.11-0.59); Monocytes % (auto) 9.6 %; Neutrophils # (auto) 4.27 K/uL (1.4-6.5); Neutrophils % (auto) 76.3 %; Platelet Count 219 K/uL (130-400); RDW Coefficient of Variation 15.5 % (11.5-14.5); Red Blood Count 5.22 M/uL (4.2-5.4)
[2021-09-24 12:02] LABS: Albumin Globulin Ratio 1.1 (0.9-2); Albumin Level 3.6 gm/dl (3.4-5.0); BUN Creatinine Ratio 27.1 (10-20); Bilirubin,Total 0.6 mg/dl (0.2-1.0); Creatinine Clr Calc Pharmacy 70.8 ml/min; Est GFR (African American) 96.2 ml/min; Globulin 3.3 gm/dl (2.5-4.0); Potassium 3.7 mmol/L (3.5-5.1); Total Protein 6.9 gm/dl (6.0-8.3)
[2021-09-24 12:07] LABS: Appearance Urine Clear (Clear); Bilirubin Urine Negative (Negative); Blood Urine Negative (Negative); Color Urine Yellow; Glucose Urine UA Negative (Negative); Ketones Urine Negative (Negative); Leukocyte Esterase Urine Negative (Negative); Nitrite Urine Negative (Negative); Protein Urine Negative (Negative); Specific Gravity Urine 1.014 (1.000-1.030); Urobilinogen Urine Negative (Negative); pH Urine 7.5 (4.5-7.5)
[2021-09-24] MEDS ORDERED: OPTIRAY 320 100ml IV ONE (13:02)
--- NOTE | 2021-09-24 13:17 | CT Scan Report ---
CT head/brain wo con CLINICAL HISTORY: ams Technique: Contiguous axial CT images of the head were acquired from the base of the skull to the thanh angi without intravenous contrast administration. Images were viewed in brain, subdural and [facility]. Automated dose lowering techniques and/or adjustment according to patient size were utilized for this exam. Comparison: Comparison is made to CT head 04/10/2019 Findings: Areas of decreased attenuation are present in the periventricular and subcortical white matter bilate rally consistent with small vessel ischemic disease. Generalized cerebral atrophy with commensurate e nlargement of the ventricles, sulci, and cisterns is also present. There is no acute intracranial hem orrhage or evidence of acute territorial infarction. No shift of the midline structures, mass effect, or extra-axial abnormalities are shown. Atherosclerotic calcifications are present in the intracran ial segments of the internal carotid arteries. Imaged portions of the paranasal sinuses and mastoid air cells are clear. The orbits appear normal. There are no acute fractures of the calvaria or scalp swelling. Impression: No acute intracranial hemorrhage, no evidence of acute territorial infarction or other acute intracra nial disease process. ACT 112: Negative or not required by law. Electronically signed by: Stew Hdez M.D. 09/24/2021 1:16 PM
--- NOTE | 2021-09-24 13:43 | CT Scan Report ---
ABDOMEN AND PELVIS CT WITH IV CONTRAST HISTORY: Acute lower abdominal pain lower bad pain TECHNIQUE: Multiaxial CT images of the abdomen and pelvis were performed following the IV administrat ion of 95 cc of Optiray, A dose lowering technique was utilized adhering to the principles of ALARA. COMPARISON STUDY: CT abdomen and pelvis 09/22/2021 FINDINGS: Limited exam secondary to respiratory motion and upper extremity positioning. Cardiomegaly with fusiform dilation of the ascending thoracic aorta measuring up to 4.4 cm. Extensive coronary art jeimy calcifications. Mild subsegmental bibasilar atelectasis/scarring. No pneumatosis or pneumoperiton eum. The spleen, mildly atrophic pancreas, gallbladder, adrenal glands and liver appear unremarkable. Patency of the hepatic and portal veins. No hydronephrosis. 1.1 cm exophytic mildly hyperdense lesion of the inferior pole right kidney with H ounsfield of 59 is unchanged and may represent a complex cyst. 9 mm left renal cyst. Symmetric enhanc ement of the kidneys. Decompressed urinary bladder with Torres catheter in place. Air within the urina ry bladder is likely secondary to instrumentation. Atherosclerosis of the aorta without aneurysm. No adenopathy. Tiny hiatal hernia. Duodenal diverticulum. Colonic diverticulosis without acute diverticulitis. Nonin flamed appendix. Scattered small bowel air-fluid levels. Nonobstructive bowel gas pattern. There are a few small bowel loops which are prominent measuring up to 2.9 cm transversely. Mild diastases recti . Degenerative changes of the spine, pelvis and hips. No destructive bone lesions identified. IMPRESSION: 1. Limited exam as above. 2. No bowel obstruction or bowel wall thickening. Normal appendix. 3. Scattered small bowel air-fluid levels are likely physiologic. A nonspecific enteritis could appea r similarly. 4. Colonic diverticulosis without acute diverticulitis. 5. Cardiomegaly with dilation of the ascending thoracic aorta measuring up to 4.4 cm. 6. Additional findings as above. ACT 112: Negative or not required by law. The above report was generated using voice recognition software. It may contain grammatical, syntax o r spelling errors. Electronically signed by: Zane Copeland M.D. 09/24/2021 1:41 PM
--- NOTE | 2021-09-24 14:26 | History & Physical Report ---
Date of Service September 24, 2021 Assessment & Plan (1) Ambulatory dysfunction: (2) Weakness: (3) Acute urinary retention: (4) Dementia: (5) Parkinsons disease: (6) Hypertension: (7) Paroxysmal atrial fibrillation: (8) Dyslipidemia: Plan: Pt has been accepted to [facility] for tomorrow. Will admit pt overnight. Son updated at bedside - all questions answered. Continue home medications. Spoke with [facility] to verify med list. AM Labs Fall precautions Continue Torres - will need urology f/u once at [facility] Pt seen and reviewed with attending physician, Dr. Lazaro. Plan of care discussed and as outlined above. Code Status: DNR/DNI DVT Prophylaxis: Maida Owen PA-C History of Present Illness Chief Complaint: Weakness Primary Care Provider: Laurita Perea MD This is an 86 y/o female with a PMH of Parkinson's Disease with dementia, PAF, HTN, dyslipidemia, and prior TIA who presents to the ED with progressive weakness for the past 10-14 days. History obtained from both patient and her son at the bedside. Pt has noted gradually worsening weakness over the past several days to the point of staying in her room at [facility] most of the time. She has not been eating as much but reports this is because she doesn't like the food they've been bringing her - denies loss of appetite, N/V. She did have some diarrhea two weeks ago that has resolved. She was seen in the ED two days ago with RLQ/right groin pain that was found secondary to urinary retention. A Torres catheter was placed with almost immediate relief of her pain. She reports some mild intermittent pain in the area since but remains overall improved. Pt has also been complaining of right leg pain, prior to that was complaining of left leg pain. She has also noted some intermittent edema. She denies chest pain, SOB, WHEELER, Dizziness, fevers, chills, URI symptoms. The pt has been accepted to [facility] rehab but will not be able to go until tomorrow. Since [facility] can no longer safely care for her with this current weakness, she is being admitted overnight pending this transfer. Allergies Allergy/AdvReac Type Severity Reaction Status Date / Time No Known Allergies Allergy Unverified 09/24/21 11:47 Home Medications Medication Instructions Recorded Confirmed Type lisinopril 10 mg tablet 10 mg PO DAILY 01/08/19 09/24/21 History aspirin 81 mg tablet,delayed 81 mg PO DAILY 05/16/19 09/24/21 History release atorvastatin 40 mg tablet 40 mg PO DAILY 05/16/19 09/24/21 History multivitamin 1 tab PO DAILY 05/16/19 09/24/21 History carbidopa 25 mg-levodopa 100 mg 0.5 tab PO BIDWMEAL 05/31/19 09/24/21 History tablet acetaminophen 500 mg tablet 1,000 mg PO Q8 PRN 09/22/21 09/24/21 History (Tylenol Extra Strength) diclofenac sodium 1 % topical gel 2 g TOPICAL QID PRN 09/22/21 09/24/21 History docusate sodium 50 mg capsule 100 mg PO BID 09/22/21 09/24/21 History furosemide 20 mg tablet 20 mg PO 3XWK 09/22/21 09/24/21 History loperamide 2 mg capsule 2 mg PO QID PRN 09/22/21 09/24/21 History loratadine 10 mg tablet (Claritin) 10 mg PO HS 09/22/21 09/24/21 History melatonin 3 mg tablet 3 mg PO HS 09/22/21 09/24/21 History ondansetron HCl 4 mg tablet 4 mg PO Q6 PRN 09/22/21 09/24/21 History peg 400-propylene glycol 0.4 %-0.3 1 drp OPHTHALMIC (EYE) BID 09/22/21 09/24/21 History % eye gel drops (Systane Gel) potassium chloride 10 mEq 10 meq PO 3XWK 09/22/21 09/24/21 History capsule,extended release sennosides 8.6 mg-docusate sodium 1 tab-cap PO DAILY PRN 09/22/21 09/24/21 History 50 mg tablet (Senna Plus) Past Med/Surg History Medical History (Updated 09/24/21 @ 18:08 by Cornelio Romero DO) Dementia Dyslipidemia History of TIA (transient ischemic attack) 2019 Hypertension Left bundle branch block Parkinsons disease Paroxysmal atrial fibrillation Troponin level elevated Surgical History History of hysterectomy History of knee surgery Family History Other Stroke Social History Smoking Status: Never smoker Second Hand Exposure: No; Do You Dip or Chew Tobacco: No; Tobacco Cessation Education Requested by Patient: No Hx Alcohol Use: No Hx Substance Use: No Preferred Language: Faroese Communication Ability: Effective Weaver Dobby Loom Required: No Beliefs That Will Affect Care: None marital status: / Current Living Situation: Personal Care Facility Current Living Situation Comment: [facility] How many Children do You have: 4 Other Information That Helps Us Care for You: No Feels Safe at Home: Yes Safety Concerns: Feels Safe At This Time Assistive Devices: Glasses Review of Systems Review of Systems: All systems reviewed & are unremarkable except as noted in HPI & below ROS somewhat limited by pt's dementia - see HPI Physical Exam Constitutional: well developed and well nourished; no acute distress Eyes: PERRL, conjunctivae normal, anicteric sclerae ENMT: external ear and nose normal, oropharynx normal Neck: trachea midline Respiratory: no respiratory distress and no labored breathing Auscultation: lungs clear to auscultation bilaterally; no rales, no rhonchi and no wheezes Cardiovascular: Rate/Rhythm: regular rate and regular rhythm Heart Sounds: + murmur Vessels: radial pulses present Extremities: + edema (1+ bilateral LE) Gastrointestinal (Abdomen): Inspection/Auscultation: normal bowel sounds; abdomen not distended Percussion/Palpation: abdomen soft; abdomen nontender Musculoskeletal: Head/Neck/Chest: normocephalic, head atraumatic and neck supple Skin: no jaundice Neurologic: moves all extremities; no focal motor deficits sensation to light touch intact bilateral distal LE Results & Data Results & Data ([facility]) Vital Signs (Past 12 Hours) Vital Signs Temp Pulse Resp BP Pulse Ox 09/24/21 13:16 67 15 156/85 H 95 09/24/21 12:00 70 21 157/90 H 96 09/24/21 10:45 36.6 C 74 20 155/93 H 95 Laboratory Results 09/24/21 09/24/21 09/24/21 11:01 11:30 11:30 WBC 5.60 RBC 5.22 Hgb 14.1 Hct 43.4 MCV 83.1 MCH 27.0 MCHC 32.5 RDW Std Deviation 47.0 H RDW Coeff of Reece 15.5 H Plt Count 219 MPV 10.0 Immature Gran % (Auto) 0.2 Neut % (Auto) 76.3 Lymph % (Auto) 11.4 [place] % (Auto) 9.6 Eos % (Auto) 2.3 Baso % (Auto) 0.2 Neut # (Auto) 4.27 Lymph # (Auto) 0.64 L [place] # (Auto) 0.54 Eos # (Auto) 0.13 Baso # (Auto) 0.01 Immature Gran # (Auto) 0.01 Sodium 140 Potassium 3.7 Chloride 106 Carbon Dioxide 30 Anion Gap 4 BUN 16 Creatinine 0.59 L Est Cr Clr Drug Dosing 70.8 Est GFR ( Amer) 96.2 Est GFR (Non-Af Amer) 83.0 BUN/Creatinine Ratio 27.1 H Glucose 85 POC Glucose 81 Calcium 9.0 Total Bilirubin 0.6 AST 22 ALT 5 L Alkaline Phosphatase 62 Total Protein 6.9 Albumin 3.6 Globulin 3.3 Albumin/Globulin Ratio 1.1 Lipase 54 Urine Color Urine Appearance Urine pH Ur Specific [place] Urine Protein Urine Glucose (UA) Urine Ketones Urine Blood Urine Nitrite Urine Bilirubin Urine Urobilinogen Ur Leukocyte Esterase SARS-CoV-2, RNA, NAAT 09/24/21 09/24/21 11:30 13:10 WBC RBC Hgb Hct MCV MCH MCHC RDW Std Deviation RDW Coeff of Reece Plt Count MPV Immature Gran % (Auto) Neut % (Auto) Lymph % (Auto) [place] % (Auto) Eos % (Auto) Baso % (Auto) Neut # (Auto) Lymph # (Auto) [place] # (Auto) Eos # (Auto) Baso # (Auto) Immature Gran # (Auto) Sodium Potassium Chloride Carbon Dioxide Anion Gap BUN Creatinine Est Cr Clr Drug Dosing Est GFR ( Amer) Est GFR (Non-Af Amer) BUN/Creatinine Ratio Glucose POC Glucose Calcium Total Bilirubin AST ALT Alkaline Phosphatase Total Protein Albumin Globulin Albumin/Globulin Ratio Lipase Urine Color Yellow Urine Appearance Clear Urine pH 7.5 Ur Specific [place] 1.014 Urine Protein Negative Urine Glucose (UA) Negative Urine Ketones Negative Urine Blood Negative Urine Nitrite Negative Urine Bilirubin Negative Urine Urobilinogen Negative Ur Leukocyte Esterase Negative SARS-CoV-2, RNA, NAAT NEGATIVE Diagnostic Findings CT Abd/Pel 09/24/21 - IMPRESSION: 1. Limited exam as above. 2. No bowel obstruction or bowel wall thickening. Normal appendix. 3. Scattered small bowel air-fluid levels are likely physiologic. A nonspecific enteritis could appear similarly. 4. Colonic diverticulosis without acute diverticulitis. 5. Cardiomegaly with dilation of the ascending thoracic aorta measuring up to 4.4 cm. 6. Additional findings as above. CT Head 09/24/21 - Impression: No acute intracranial hemorrhage, no evidence of acute territorial infarction or other acute intracranial disease process. Medications Administered Discontinued Medications Ioversol (Optiray 320 100ml) 95 ml IV ONCE ONE Stop: 09/24/21 13:03 Last Admin: 09/24/21 13:02 Dose: 95 ml Documented by: [id number] Supervising Physician Co-Signing Physician Notes Patient seen and evaluated independently. Chart reviewed. Case discussed with MELVIN. Patient placed into observation for placement. (1) Dementia Dementia behavioral disturbance: without behavioral disturbance Dementia type: unspecified type Qualified Code(s): F03.90 - Unspecified dementia without behavioral disturbance (2) Hypertension Hypertension type: unspecified Qualified Code(s): I10 - Essential (primary) hypertension
--- NOTE | 2021-09-24 14:29 | Ultrasound Report ---
US venous doppler LE RT CLINICAL HISTORY: rle pain TECHNIQUE: Right lower extremity real-time compression venous ultrasound with Color Doppler imaging. Utilizing real-time ultrasonic imaging multiple real time high-resolution ultrasonic images with comp ression and noncompression maneuvers of the deep venous system in addition to color doppler imaging w ere performed from the common femoral vein through the proximal calf veins. COMPARISON: None available at the time of this dictation. FINDINGS: Currently there is normal compressibility of the deep venous system from the common femoral vein thro ugh the proximal calf veins. No current evidence of acute thrombosis is identified. Impression: No evidence of deep venous thrombus. ACT 112: Negative or not required by law. Electronically signed by: Stew Hdez M.D. 09/24/2021 2:27 PM
--- NOTE | 2021-09-24 14:55 | Electrocardiogram Report ---
Test Reason : Blood Pressure : / mmHG Vent. Rate : 070 BPM Atrial Rate : 070 BPM P-R Int : 174 ms QRS Dur : 140 ms QT Int : 434 ms P-R-T Axes : 046 -73 078 degrees QTc Int : 468 ms Normal sinus rhythm Left axis deviation Left bundle branch block Abnormal ECG When compared with ECG of 22-SEP-2021 19:04, No significant change was found Confirmed by Harley Angel ([id number]) on 09/24/2021 2:54:50 PM Referred By: REFERRED SELF Confirmed By:Harley Angel
--- NOTE | 2021-09-24 16:09 | Hospitalist Progress Note ---
Date of Service September 24, 2021 Subjective Patient was independent examined. Her labwork, imaging, and vitals were reviewed. Case discussed with MELVIN. Mrs Toshia Nichols is a 86 year old female who lives in Assisted Living at the [facility]. She has had progressive weakness. Recently seen in the ER for urinary retention and had a claros catheter placed. She has plans to go to [facility] for rehab (scheduled for 09/25) but until then, her current facility can not care for her. She was sent to the hospital for overnight observation until placement. Results & Data Results & Data ([facility]) Vital Signs (Past 12 Hours) Vital Signs Temp Pulse Resp BP Pulse Ox 09/24/21 14:00 76 15 167/79 H 97 09/24/21 13:16 67 15 156/85 H 95 09/24/21 12:00 70 21 157/90 H 96 09/24/21 10:45 36.6 C 74 20 155/93 H 95
[2021-09-24] MEDS: POTASSIUM CHLORIDE 10 MEQ TABCR PO SCH (18:47)
[2021-09-24] MEDS: FUROSEMIDE 20 MG TAB PO SCH (19:28)
[2021-09-24] MEDS: CARBIDOPA/LEVODOPA 25/100MG TAB PO SCH (19:29)
[2021-09-24] MEDS: MELATONIN 3 MG TAB PO SCH (20:49)
[2021-09-24] MEDS: DOCUSATE SODIUM 100 MG CAP PO SCH (20:50)
[2021-09-24] MEDS: LORATADINE 10 MG TAB PO SCH (20:50)
[2021-09-24] MEDS ORDERED: PEG PROPYLENE GLYCOL OP SCH (21:00)
[2021-09-25 07:08] LABS: Basophils # (auto) 0.01 K/uL (0-0.2); Basophils % (auto) 0.2 %; Eosinophils # (auto) 0.06 K/uL (0-0.5); Hematocrit (blood only) 43.6 % (37-47); Hemoglobin 14.6 g/dL (12.0-16.0); Immature Granulocytes # (auto) 0.01 K/uL (0.00-0.02); Immature Granulocytes % (auto) 0.2 %; Lymphocytes # (auto) 0.65 K/uL (1.2-3.4); Mean Corpuscular Hemoglobin 27.3 pg (25-34); Mean Corpuscular Hgb Conc 33.5 g/dL (32-36); Mean Corpuscular Volume 81.5 fL (80-100); Mean Platelet Volume 9.9 fL (7.4-10.4); Monocytes % (auto) 8.5 %; Neutrophils # (auto) 4.66 K/uL (1.4-6.5); Neutrophils % (auto) 79.1 %; Platelet Count 219 K/uL (130-400); RDW Coefficient of Variation 15.4 % (11.5-14.5); RDW Standard Deviation 45.4 fL (36.4-46.3); Red Blood Count 5.35 M/uL (4.2-5.4); White Blood Count 5.89 K/uL (4.8-10.8)
[2021-09-25 07:33] LABS: BUN Creatinine Ratio 21.8 (10-20); Creatinine Clr Calc Pharmacy 73.1 ml/min; Est GFR (African American) 98.4 ml/min; Est GFR (Non-African American) 84.9 ml/min; Potassium 3.8 mmol/L (3.5-5.1)
[2021-09-25] MEDS: DOCUSATE SODIUM 100 MG CAP PO SCH ×2 (08:56→22:04)
[2021-09-25] MEDS: ATORVASTATIN 40 MG TAB PO SCH (08:57)
[2021-09-25] MEDS: MULTIVITAMIN TAB PO SCH (08:57)
[2021-09-25] MEDS: CARBIDOPA/LEVODOPA 25/100MG TAB PO SCH ×2 (08:57→16:42)
[2021-09-25] MEDS: ENOXAPARIN INJ 40 MG/0.4 ML SYR SQ SCH (08:57)
[2021-09-25] MEDS: ASPIRIN 81 MG ECTAB PO SCH (08:57)
[2021-09-25] MEDS: lisinopril 10 MG TAB PO SCH (08:58)
--- NOTE | 2021-09-25 10:26 | Hospitalist Progress Note ---
Date of Service September 25, 2021 Assessment & Plan (1) Ambulatory dysfunction: (2) Weakness: (3) Acute urinary retention: (4) Dementia: (5) Parkinsons disease: (6) Hypertension: (7) Paroxysmal atrial fibrillation: (8) Dyslipidemia: Plan: Patient was placed in observation with plan to discharge to [facility] today. Apparently, no referrals were made by ER bilingual patient support caseworker and patient has NOT BEEN ACCEPTED by [facility] or any facility for that matter. Will need PT evaluation and initiate referral process. Likely this will take another 1-2 days. In the meantime, she can not return to the [facility] since she needs higher level of care Will continue her claros catheter which was placed in ER 3 days ago due to urinary retention. Would recommend that be continued at [facility] and void trial initiated there once she is more ambulatory. Code Status: DNR/DNI DVT Prophylaxis: Lovenox Admission and Anticipated Discharge Date Admission Date: September 24, 2021 Subjective No issues overnight Apparently, patient likely can not go to [facility] today due to no referrals were made yesterday by ER CM Physical Exam Physical Exam: Pleasantly demented, no acute distress Respiratory: Breathing comfortably on room air, no wheezing/rhonchi/rales Cardiovascular: regular rate and rhythm, no murmurs/rubs/gallops Gastrointestinal (Abdomen): soft, non tender Musculoskeletal: no edema Neurologic: awake, pleasantly demented, spontaneously moving extremities Genitourinary: claros in Results & Data Results & Data ([facility]) Vital Signs (Past 12 Hours) Vital Signs Temp Pulse Resp BP Pulse Ox 09/25/21 07:25 36.8 C 77 18 158/87 H 92 09/24/21 23:05 37.1 C 57 L 20 157/85 H 94 Laboratory Results Short CBC 09/24/21 09/25/21 Range/Units 11:30 06:35 WBC 5.60 5.89 (4.8-10.8) K/uL Hgb 14.1 14.6 (12.0-16.0) g/dL Hct 43.4 43.6 (37-47) % Plt Count 219 219 (130-400) K/uL BMP 09/24/21 09/25/21 11:30 06:35 Sodium 140 139 Potassium 3.7 3.8 Chloride 106 103 Carbon Dioxide 30 27 BUN 16 12 Creatinine 0.59 L 0.55 L Glucose 85 104 H Calcium 9.0 9.0 Liver Function 09/24/21 Range/Units 11:30 Total Bilirubin 0.6 (0.2-1.0) mg/dl AST 22 (13-39) U/L ALT 5 L (7-52) U/L Alkaline Phosphatase 62 (34-104) U/L Albumin 3.6 (3.4-5.0) gm/dl Urine 09/24/21 Range/Units 11:30 Urine Color Yellow Urine Appearance Clear (Clear) Urine pH 7.5 (4.5-7.5) Ur Specific [place] 1.014 (1.000-1.030) Urine Protein Negative (Negative) Urine Glucose (UA) Negative (Negative) Medications Administered Current Inpatient Medications Acetaminophen (Acetaminophen 325 Mg Tab) 650 mg PO Q4H PRN PRN Reason: pain/fever Stop: 10/24/21 18:00 Aspirin (Aspirin 81 Mg Ectab) 81 mg PO DAILY [facility] Stop: 10/25/21 08:59 Last Admin: 09/25/21 08:57 Dose: 81 mg Documented by: Atorvastatin Calcium (Atorvastatin 40 Mg Tab) 40 mg PO DAILY [facility] Stop: 10/25/21 08:59 Last Admin: 09/25/21 08:57 Dose: 40 mg Documented by: Carbidopa/Levodopa (Carbidopa/Levodopa 25/100mg Tab) 0.5 tab PO BIDM [facility] Stop: 10/24/21 18:29 Last Admin: 09/25/21 08:57 Dose: 0.5 tab Documented by: Docusate Sodium (Docusate Sodium 100 Mg Cap) 100 mg PO BID [facility] Stop: 10/24/21 20:59 Last Admin: 09/25/21 08:56 Dose: 100 mg Documented by: Enoxaparin Sodium (Enoxaparin Inj 40 Mg/0.4 Ml Syr) 40 mg SQ Q24H [facility] Stop: 10/25/21 08:59 Last Admin: 09/25/21 08:57 Dose: 40 mg Documented by: Furosemide (Furosemide 20 Mg Tab) 20 mg PO MoWeFr@0900 [facility] Stop: 10/24/21 18:29 Last Admin: 09/24/21 19:28 Dose: 20 mg Documented by: Lisinopril (Lisinopril 10 Mg Tab) 10 mg PO DAILY [facility] Stop: 10/25/21 08:59 Last Admin: 09/25/21 08:58 Dose: 10 mg Documented by: Loratadine (Loratadine 10 Mg Tab) 10 mg PO [facility] Stop: 10/24/21 20:59 Last Admin: 09/24/21 20:50 Dose: 10 mg Documented by: Melatonin (Melatonin 3 Mg Tab) 3 mg PO [facility] Stop: 10/24/21 20:59 Last Admin: 09/24/21 20:49 Dose: 3 mg Documented by: Multivitamins (Multivitamin Tab) 1 tab PO DAILY [facility] Stop: 10/25/21 08:59 Last Admin: 09/25/21 08:57 Dose: 1 tab Documented by: Potassium Chloride (Potassium Chloride 10 Meq Tabcr) 10 meq PO MoWeFr@0900 [facility] Stop: 10/24/21 18:29 Last Admin: 09/24/21 18:47 Dose: 10 meq Documented by: (1) Dementia Dementia behavioral disturbance: without behavioral disturbance Dementia type: unspecified type Qualified Code(s): F03.90 - Unspecified dementia without behavioral disturbance (2) Hypertension Hypertension type: unspecified Qualified Code(s): I10 - Essential (primary) hypertension
[2021-09-25] MEDS: NYSTATIN POWDER 15GM BTL EXT SCH (22:04)
[2021-09-25] MEDS: LORATADINE 10 MG TAB PO SCH (22:04)
[2021-09-25] MEDS: MELATONIN 3 MG TAB PO SCH (22:06)
[2021-09-26] MEDS: NYSTATIN POWDER 15GM BTL EXT SCH ×2 (07:56→20:37)
[2021-09-26] MEDS: lisinopril 10 MG TAB PO SCH (07:57)
[2021-09-26] MEDS: FUROSEMIDE 20 MG TAB PO SCH (07:57)
[2021-09-26] MEDS: POTASSIUM CHLORIDE 10 MEQ TABCR PO SCH (07:57)
[2021-09-26] MEDS: ENOXAPARIN INJ 40 MG/0.4 ML SYR SQ SCH (07:57)
[2021-09-26] MEDS: ATORVASTATIN 40 MG TAB PO SCH (07:57)
[2021-09-26] MEDS: DOCUSATE SODIUM 100 MG CAP PO SCH ×2 (07:57→20:37)
[2021-09-26] MEDS: ASPIRIN 81 MG ECTAB PO SCH (07:58)
[2021-09-26] MEDS: MULTIVITAMIN TAB PO SCH (07:58)
[2021-09-26] MEDS: CARBIDOPA/LEVODOPA 25/100MG TAB PO SCH ×2 (07:58→17:01)
[2021-09-26] MEDS: ACETAMINOPHEN 325 MG TAB PO PRN (13:04)
--- NOTE | 2021-09-26 13:54 | Hospitalist Progress Note ---
Date of Service September 26, 2021 Assessment & Plan (1) Ambulatory dysfunction: (2) Weakness: (3) Acute urinary retention: (4) Dementia: (5) Parkinsons disease: (6) Hypertension: (7) Paroxysmal atrial fibrillation: (8) Dyslipidemia: Plan: She has multiple medical problems as mentioned above Remains hemodynamically stable without any significant symptoms Her blood counts and imaging studies remain unremarkable Patient was placed in observation with plan to discharge to [facility] on the next day of admission Apparently, no referrals were made by ER shelter case manager and patient has NOT BEEN ACCEPTED by [facility] or any facility for that matter. In the meantime, she can not return to the [facility] since she needs higher level of care Will need PT evaluation and initiate referral process. Likely this will take another 1-2 days. Medically stable to be transferred when accepted Will continue her claros catheter which was placed in ER 3 days ago due to urinary retention. Would recommend that be continued at SNF and void trial initiated there once she is more ambulatory. Code Status: DNR/DNI DVT Prophylaxis: Lovenox Admission and Anticipated Discharge Date Admission Date: September 24, 2021 Subjective 09/26/2021 The patient was seen and examined in medical telemetry unit She has been sitting on a chair and complaining some pain in the right knee Denies any chest pain, palpitation or shortness of breath No abdominal pain, nausea and or vomiting Review of Systems Review of Systems: All symptoms reviewed and are unremarkable except as noted below Physical Exam Physical Exam: Sitting on a chair without any acute distress Constitutional: well nourished, + acute distress and + obese; not ill appearin g Eyes: PERRL, conjunctivae normal, anicteric sclerae ENMT: external ear and nose normal, oropharynx normal Respiratory: no respiratory distress Auscultation: + diminished lung sounds and + crackles (Minimal crackles at the bases) Cardiovascular: Rate/Rhythm: regular rate and regular rhythm; not tachycardic Heart Sounds: normal S1 and normal S2; no murmur Extremities: + edema (Trace edema bilaterally) Gastrointestinal (Abdomen): Inspection/Auscultation: normal bowel sounds; abdomen not distended Percussion/Palpation: abdomen soft; abdomen nontender Musculoskeletal: Osteoarthritic changes involving hands and feet and also right knee. Minimal pain with movement of the right knee joint but no acute arthritis Neurologic: Alert and awake. Pleasantly confused Results & Data Results & Data ([facility]) Vital Signs (Past 12 Hours) Vital Signs Temp Pulse Resp BP Pulse Ox 09/26/21 08:00 168/68 H 09/26/21 07:30 37.1 C 71 18 178/101 H 92 Medications Administered Current Inpatient Medications Acetaminophen (Acetaminophen 325 Mg Tab) 650 mg PO Q4H PRN PRN Reason: pain/fever Stop: 10/24/21 18:00 Last Admin: 09/26/21 13:04 Dose: 650 mg Documented by: Aspirin (Aspirin 81 Mg Ectab) 81 mg PO DAILY [facility] Stop: 10/25/21 08:59 Last Admin: 09/26/21 07:58 Dose: 81 mg Documented by: Atorvastatin Calcium (Atorvastatin 40 Mg Tab) 40 mg PO DAILY [facility] Stop: 10/25/21 08:59 Last Admin: 09/26/21 07:57 Dose: 40 mg Documented by: Carbidopa/Levodopa (Carbidopa/Levodopa 25/100mg Tab) 0.5 tab PO BIDM [facility] Stop: 10/24/21 18:29 Last Admin: 09/26/21 07:58 Dose: 0.5 tab Documented by: Docusate Sodium (Docusate Sodium 100 Mg Cap) 100 mg PO BID [facility] Stop: 10/24/21 20:59 Last Admin: 09/26/21 07:57 Dose: 100 mg Documented by: Enoxaparin Sodium (Enoxaparin Inj 40 Mg/0.4 Ml Syr) 40 mg SQ Q24H [facility] Stop: 10/25/21 08:59 Last Admin: 09/26/21 07:57 Dose: 40 mg Documented by: Furosemide (Furosemide 20 Mg Tab) 20 mg PO MoWeFr@0900 [facility] Stop: 10/24/21 18:29 Last Admin: 09/26/21 07:57 Dose: 20 mg Documented by: Lisinopril (Lisinopril 10 Mg Tab) 10 mg PO DAILY [facility] Stop: 10/25/21 08:59 Last Admin: 09/26/21 07:57 Dose: 10 mg Documented by: Loratadine (Loratadine 10 Mg Tab) 10 mg PO HS [facility] Stop: 10/24/21 20:59 Last Admin: 09/25/21 22:04 Dose: 10 mg Documented by: Melatonin (Melatonin 3 Mg Tab) 3 mg PO HS [facility] Stop: 10/24/21 20:59 Last Admin: 09/25/21 22:06 Dose: 3 mg Documented by: Multivitamins (Multivitamin Tab) 1 tab PO DAILY [facility] Stop: 10/25/21 08:59 Last Admin: 09/26/21 07:58 Dose: 1 tab Documented by: Nystatin (Nystatin Powder 15gm Btl) 1 appln EXT BID [facility] Stop: 10/25/21 20:59 Last Admin: 09/26/21 07:56 Dose: 1 appln Documented by: Potassium Chloride (Potassium Chloride 10 Meq Tabcr) 10 meq PO MoWeFr@0900 [facility] Stop: 10/24/21 18:29 Last Admin: 09/26/21 07:57 Dose: 10 meq Documented by: (1) Dementia Dementia behavioral disturbance: without behavioral disturbance Dementia type: unspecified type Qualified Code(s): F03.90 - Unspecified dementia without behavioral disturbance (2) Hypertension Hypertension type: unspecified Qualified Code(s): I10 - Essential (primary) hypertension
[2021-09-26] MEDS: LORATADINE 10 MG TAB PO SCH (20:37)
[2021-09-26] MEDS: MELATONIN 3 MG TAB PO SCH (20:37)
[2021-09-27] MEDS: DOCUSATE SODIUM 100 MG CAP PO SCH ×2 (09:50→20:32)
[2021-09-27] MEDS: MULTIVITAMIN TAB PO SCH (09:50)
[2021-09-27] MEDS: lisinopril 10 MG TAB PO SCH (09:51)
[2021-09-27] MEDS: ENOXAPARIN INJ 40 MG/0.4 ML SYR SQ SCH (09:51)
[2021-09-27] MEDS: ASPIRIN 81 MG ECTAB PO SCH (09:51)
[2021-09-27] MEDS: CARBIDOPA/LEVODOPA 25/100MG TAB PO SCH ×2 (09:51→16:45)
[2021-09-27] MEDS: ATORVASTATIN 40 MG TAB PO SCH (09:51)
[2021-09-27] MEDS: NYSTATIN POWDER 15GM BTL EXT SCH ×2 (11:44→20:33)
--- NOTE | 2021-09-27 16:06 | Hospitalist Progress Note ---
Date of Service September 27, 2021 Assessment & Plan (1) Ambulatory dysfunction: (2) Weakness: (3) Acute urinary retention: (4) Dementia: (5) Parkinsons disease: (6) Hypertension: (7) Paroxysmal atrial fibrillation: (8) Dyslipidemia: Plan: She has multiple medical problems as mentioned above Remains hemodynamically stable without any significant symptoms Her blood counts and imaging studies remain unremarkable Remains stable without any significant symptoms Patient was placed in observation with plan to discharge to [facility] on the next day of admission Apparently, no referrals were made by ER case consultant and patient has NOT BEEN ACCEPTED by [facility] or any facility for that matter. In the meantime, she can not return to the [facility] since she needs higher level of care Will need PT evaluation and initiate referral process. Likely this will take another 1-2 days. Medically stable to be transferred when accepted Has been admitted today and is waiting for placement Will continue her claros catheter which was placed in ER 3 days ago due to urinary retention. Would recommend that be continued at SNF and void trial initiated there once she is more ambulatory. Code Status: DNR/DNI DVT Prophylaxis: Lovenox Admission and Anticipated Discharge Date Admission Date: September 27, 2021 Subjective 09/26/2021 The patient was seen and examined in medical telemetry unit She has been sitting on a chair and complaining some pain in the right knee Denies any chest pain, palpitation or shortness of breath No abdominal pain, nausea and or vomiting 09/27/2021 The patient was seen and examined in medical telemetry unit She has been stable Still complains of minimal pain in the right knee Denies any other symptoms except weakness Review of Systems Review of Systems: All systems reviewed and are unremarkable except as noted below Physical Exam Physical Exam: Sitting on a chair without any acute distress Constitutional: well nourished, + acute distress and + obese; not ill appearing Eyes: PERRL, conjunctivae normal, anicteric sclerae ENMT: external ear and nose normal, oropharynx normal Respiratory: no respiratory distress Auscultation: + diminished lung sounds and + crackles (Minimal crackles at the bases) Cardiovascular: Rate/Rhythm: regular rate and regular rhythm; not tachycardic Heart Sounds: normal S1 and normal S2; no murmur Extremities: + edema (Trace edema bilaterally) Gastrointestinal (Abdomen): Inspection/Auscultation: normal bowel sounds; abdomen not distended Percussion/Palpation: abdomen soft; abdomen nontender Musculoskeletal: Right knee osteoarthritic changes without any acute arthritis Neurologic: Alert and awake. Pleasantly confused and generally weak Results & Data Results & Data ([facility]) Vital Signs (Past 12 Hours) Vital Signs Temp Pulse Resp BP Pulse Ox 09/27/21 14:30 36.3 C L 56 L 16 104/73 91 09/27/21 06:32 36.3 C L 81 16 146/91 H 92 Medications Administered Current Inpatient Medications Acetaminophen (Acetaminophen 325 Mg Tab) 650 mg PO Q4H PRN PRN Reason: pain/fever Stop: 10/24/21 18:00 Last Admin: 09/26/21 13:04 Dose: 650 mg Documented by: Aspirin (Aspirin 81 Mg Ectab) 81 mg PO DAILY [facility] Stop: 10/25/21 08:59 Last Admin: 09/27/21 09:51 Dose: 81 mg Documented by: Atorvastatin Calcium (Atorvastatin 40 Mg Tab) 40 mg PO DAILY [facility] Stop: 10/25/21 08:59 Last Admin: 09/27/21 09:51 Dose: 40 mg Documented by: Carbidopa/Levodopa (Carbidopa/Levodopa 25/100mg Tab) 0.5 tab PO BIDM [facility] Stop: 10/24/21 18:29 Last Admin: 09/27/21 09:51 Dose: 0.5 tab Documented by: Docusate Sodium (Docusate Sodium 100 Mg Cap) 100 mg PO BID [facility] Stop: 10/24/21 20:59 Last Admin: 09/27/21 09:50 Dose: Not Given Documented by: Enoxaparin Sodium (Enoxaparin Inj 40 Mg/0.4 Ml Syr) 40 mg SQ Q24H [facility] Stop: 10/25/21 08:59 Last Admin: 09/27/21 09:51 Dose: 40 mg Documented by: Furosemide (Furosemide 20 Mg Tab) 20 mg PO MoWeFr@0900 [facility] Stop: 10/24/21 18:29 Last Admin: 09/26/21 07:57 Dose: 20 mg Documented by: Lisinopril (Lisinopril 10 Mg Tab) 10 mg PO DAILY [facility] Stop: 10/25/21 08:59 Last Admin: 09/27/21 09:51 Dose: 10 mg Documented by: Loratadine (Loratadine 10 Mg Tab) 10 mg PO HS [facility] Stop: 10/24/21 20:59 Last Admin: 09/26/21 20:37 Dose: 10 mg Documented by: Melatonin (Melatonin 3 Mg Tab) 3 mg PO [facility] Stop: 10/24/21 20:59 Last Admin: 09/26/21 20:37 Dose: 3 mg Documented by: Multivitamins (Multivitamin Tab) 1 tab PO DAILY [facility] Stop: 10/25/21 08:59 Last Admin: 09/27/21 09:50 Dose: 1 tab Documented by: Nystatin (Nystatin Powder 15gm Btl) 1 appln EXT BID [facility] Stop: 10/25/21 20:59 Last Admin: 09/27/21 11:44 Dose: 1 appln Documented by: Potassium Chloride (Potassium Chloride 10 Meq Tabcr) 10 meq PO MoWeFr@0900 [facility] Stop: 10/24/21 18:29 Last Admin: 09/26/21 07:57 Dose: 10 meq Documented by: (1) Dementia Dementia behavioral disturbance: without behavioral disturbance Dementia type: unspecified type Qualified Code(s): F03.90 - Unspecified dementia without behavioral disturbance (2) Hypertension Hypertension type: unspecified Qualified Code(s): I10 - Essential (primary) hypertension
[2021-09-27] MEDS: ACETAMINOPHEN 325 MG TAB PO PRN (16:44)
[2021-09-27] MEDS: LORATADINE 10 MG TAB PO SCH (20:32)
[2021-09-27] MEDS: MELATONIN 3 MG TAB PO SCH (20:33)
[2021-09-28] MEDS: ENOXAPARIN INJ 40 MG/0.4 ML SYR SQ SCH (08:19)
[2021-09-28] MEDS: CARBIDOPA/LEVODOPA 25/100MG TAB PO SCH (08:19)
[2021-09-28] MEDS: lisinopril 10 MG TAB PO SCH (08:20)
[2021-09-28] MEDS: MULTIVITAMIN TAB PO SCH (08:20)
[2021-09-28] MEDS: FUROSEMIDE 20 MG TAB PO SCH (08:20)
[2021-09-28] MEDS: ATORVASTATIN 40 MG TAB PO SCH (08:20)
[2021-09-28] MEDS: POTASSIUM CHLORIDE 10 MEQ TABCR PO SCH (08:20)
[2021-09-28] MEDS: ASPIRIN 81 MG ECTAB PO SCH (08:20)
[2021-09-28] MEDS: NYSTATIN POWDER 15GM BTL EXT SCH (08:20)
[2021-09-28] MEDS: DOCUSATE SODIUM 100 MG CAP PO SCH (08:20)
[2021-09-28] MEDS: ACETAMINOPHEN 325 MG TAB PO PRN (08:25)
--- NOTE | 2021-09-28 11:12 | Hospitalist Progress Note ---
Date of Service September 28, 2021 Assessment & Plan (1) Ambulatory dysfunction: (2) Weakness: (3) Acute urinary retention: (4) Dementia: (5) Parkinsons disease: (6) Hypertension: (7) Paroxysmal atrial fibrillation: (8) Dyslipidemia: Plan: She has multiple medical problems as mentioned above Remains hemodynamically stable without any significant symptoms Her blood counts and imaging studies remain unremarkable Remains stable without any significant symptoms Has been accepted to [facility] and will be discharged this afternoon Patient was placed in observation with plan to discharge to [facility] on the next day of admission Apparently, no referrals were made by ER case folder and patient has NOT BEEN ACCEPTED by [facility] or any facility for that matter. In the meantime, she can not return to the [facility] since she needs higher level of care Will need PT evaluation and initiate referral process. Likely this will take another 1-2 days. Medically stable to be transferred when accepted Has been admitted today and is waiting for placement Remains stable without any significant symptoms Will continue her claros catheter which was placed in ER 3 days ago due to urinary retention. Would recommend that be continued at SNF and void trial initiated there once she is more ambulatory. We will keep Clarso in for now Code Status: DNR/DNI DVT Prophylaxis: Lovenox Admission and Anticipated Discharge Date Admission Date: September 27, 2021 Subjective 09/26/2021 The patient was seen and examined in medical telemetry unit She has been sitting on a chair and complaining some pain in the right knee Denies any chest pain, palpitation or shortness of breath No abdominal pain, nausea and or vomiting 09/27/2021 The patient was seen and examined in medical telemetry unit She has been stable Still complains of minimal pain in the right knee Denies any other symptoms except weakness 09/28/2021 The patient was seen and examined in medical telemetry unit She has been generally weak but denies any other symptoms Her right knee pain is better Review of Systems Review of Systems: All systems reviewed and are unremarkable except as noted below Musculoskeletal: Minimal right knee pain with activities Physical Exam Physical Exam: Lying in bed comfortably Constitutional: well nourished, + acute distress and + obese; not ill appearing Eyes: PERRL, conjunctivae normal, anicteric sclerae ENMT: external ear and nose normal, oropharynx normal Respiratory: no respiratory distress Auscultation: + diminished lung sounds and + crackles (Minimal crackles at the bases) Cardiovascular: Rate/Rhythm: regular rate and regular rhythm; not tachycardic Heart Sounds: normal S1 and normal S2; no murmur Extremities: + edema (Trace edema bilaterally) Gastrointestinal (Abdomen): Inspection/Auscultation: normal bowel sounds; abdomen not distended Percussion/Palpation: abdomen soft; abdomen nontender Musculoskeletal: Has osteoarthritic changes involving multiple joints and right knee is not acutely inflamed Neurologic: Alert and awake. Pleasantly confused. Generally weak without any focal neuro deficit Results & Data Results & Data ([facility] [place]) Vital Signs (Past 12 Hours) Vital Signs Temp Pulse Pulse Resp BP Pulse Ox 09/28/21 10:35 91 09/28/21 07:30 36.5 C 86 17 120/90 91 09/27/21 23:39 36.5 C 84 16 153/81 H 91 Medications Administered Current Inpatient Medications Acetaminophen (Acetaminophen 325 Mg Tab) 650 mg PO Q4H PRN PRN Reason: pain/fever Stop: 10/24/21 18:00 Last Admin: 09/28/21 08:25 Dose: 650 mg Documented by: Aspirin (Aspirin 81 Mg Ectab) 81 mg PO DAILY [facility] Stop: 10/25/21 08:59 Last Admin: 09/28/21 08:20 Dose: 81 mg Documented by: Atorvastatin Calcium (Atorvastatin 40 Mg Tab) 40 mg PO DAILY [facility] Stop: 10/25/21 08:59 Last Admin: 09/28/21 08:20 Dose: 40 mg Documented by: Carbidopa/Levodopa (Carbidopa/Levodopa 25/100mg Tab) 0.5 tab PO BIDM [facility] Stop: 10/24/21 18:29 Last Admin: 09/28/21 08:19 Dose: 0.5 tab Documented by: Docusate Sodium (Docusate Sodium 100 Mg Cap) 100 mg PO BID [facility] Stop: 10/24/21 20:59 Last Admin: 09/28/21 08:20 Dose: 100 mg Documented by: Enoxaparin Sodium (Enoxaparin Inj 40 Mg/0.4 Ml Syr) 40 mg SQ Q24H [facility] Stop: 10/25/21 08:59 Last Admin: 09/28/21 08:19 Dose: 40 mg Documented by: Furosemide (Furosemide 20 Mg Tab) 20 mg PO MoWeFr@0900 [facility] Stop: 10/24/21 18:29 Last Admin: 09/28/21 08:20 Dose: 20 mg Documented by: Lisinopril (Lisinopril 10 Mg Tab) 10 mg PO DAILY [facility] Stop: 10/25/21 08:59 Last Admin: 09/28/21 08:20 Dose: 10 mg Documented by: Loratadine (Loratadine 10 Mg Tab) 10 mg PO HS [facility] Stop: 10/24/21 20:59 Last Admin: 09/27/21 20:32 Dose: 10 mg Documented by: Melatonin (Melatonin 3 Mg Tab) 3 mg PO HS [facility] Stop: 10/24/21 20:59 Last Admin: 09/27/21 20:33 Dose: Not Given Documented by: Multivitamins (Multivitamin Tab) 1 tab PO DAILY [facility] Stop: 10/25/21 08:59 Last Admin: 09/28/21 08:20 Dose: 1 tab Documented by: Nystatin (Nystatin Powder 15gm Btl) 1 appln EXT BID [facility] Stop: 10/25/21 20:59 Last Admin: 09/28/21 08:20 Dose: 1 appln Documented by: Potassium Chloride (Potassium Chloride 10 Meq Tabcr) 10 meq PO MoWeFr@0900 [facility] Stop: 10/24/21 18:29 Last Admin: 09/28/21 08:20 Dose: 10 meq Documented by: (1) Dementia Dementia behavioral disturbance: without behavioral disturbance Dementia type: unspecified type Qualified Code(s): F03.90 - Unspecified dementia without behavioral disturbance (2) Hypertension Hypertension type: unspecified Qualified Code(s): I10 - Essential (primary) hypertension
--- NOTE | 2021-09-29 08:17 | Discharge Summary ---
Date of Service September 29, 2021 Admission HPI Per Admitting Provider This is an 86 y/o female with a PMH of Parkinson's Disease with dementia, PAF, HTN, dyslipidemia, and prior TIA who presents to the ED with progressive weakness for the past 10-14 days. History obtained from both patient and her son at the bedside. Pt has noted gradually worsening weakness over the past several days to the point of staying in her room at [facility] most of the time. She has not been eating as much but reports this is because she doesn't like the food they've been bringing her - denies loss of appetite, N/V. She did have some diarrhea two weeks ago that has resolved. She was seen in the ED two days ago with RLQ/right groin pain that was found secondary to urinary retention. A Claros catheter was placed with almost immediate relief of her pain. She reports some mild intermittent pain in the area since but remains overall improved. Pt has also been complaining of right leg pain, prior to that was complaining of left leg pain. She has also noted some intermittent edema. She denies chest pain, SOB, WHEELER, Dizziness, fevers, chills, URI symptoms. The pt has been accepted to [facility] but will not be able to go until tomorrow. Since [facility] can no longer safely care for her with this current weakness, she is being admitted overnight pending this transfer. Admission Exam Per Admitting Provider Constitutional: well developed and well nourished; no acute distress Eyes: PERRL, conjunctivae normal, anicteric sclerae ENMT: external ear and nose normal, oropharynx normal Neck: trachea midline Respiratory: no respiratory distress and no labored breathing Auscultation: lungs clear to auscultation bilaterally; no rales, no rhonchi and no wheezes Cardiovascular: Rate/Rhythm: regular rate and regular rhythm Heart Sounds: + murmur Vessels: radial pulses present Extremities: + edema (1+ bilateral LE) Gastrointestinal (Abdomen): Inspection/Auscultation: normal bowel sounds; abdomen not distended Percussion/Palpation: abdomen soft; abdomen nontender Musculoskeletal: Head/Neck/Chest: normocephalic, head atraumatic and neck supple Skin: no jaundice Neurologic: moves all extremities; no focal motor deficits sensation to light touch intact bilateral distal LE Principal Diagnosis Debility Generalized Weakness Ambulatory Dysfunction Discharge Exam Lying in bed comfortably Constitutional well nourished, + acute distress and + obese; not ill appearing Eyes PERRL, conjunctivae normal, anicteric sclerae ENMT external ear and nose normal, oropharynx normal Respiratory no respiratory distress Auscultation: + diminished lung sounds and + crackles (Minimal crackles at the bases) Cardiovascular Rate/Rhythm: regular rate and regular rhythm; not tachycardic Heart Sounds: normal S1 and normal S2; no murmur Extremities: + edema (Trace edema bilaterally) Gastrointestinal (Abdomen) Inspection/Auscultation: normal bowel sounds; abdomen not distended Percussion/Palpation: abdomen soft; abdomen nontender Discharge Data Allergies Allergy/AdvReac Type Severity Reaction Status Date / Time No Known Allergies Allergy Unverified 09/24/21 11:47 Consultations 09/24/21 13:54 ED Decision to Admit Stat Ordered Studies 09/24/21 11:09 CT abd pelvis IV con only Stat CT head/brain wo con Stat US venous doppler LE RT Stat Hospital Course (1) Ambulatory dysfunction: (2) Weakness: (3) Acute urinary retention: (4) Dementia: (5) Parkinsons disease: (6) Hypertension: (7) Paroxysmal atrial fibrillation: (8) Dyslipidemia: She has multiple medical problems as mentioned above Remains hemodynamically stable without any significant symptoms Her blood counts and imaging studies remain unremarkable Remains stable without any significant symptoms Has been accepted to [facility] and will be discharged this afternoon Patient was placed in observation with plan to discharge to [facility] on the next day of admission Apparently, no referrals were made by ER watch case polisher and patient has NOT BEEN ACCEPTED by [facility] or any facility for that matter. In the meantime, she can not return to the [facility] since she needs higher level of care Will need PT evaluation and initiate referral process. Likely this will take another 1-2 days. Medically stable to be transferred when accepted Has been admitted today and is waiting for placement Remains stable without any significant symptoms Will continue her claros catheter which was placed in ER 3 days ago due to urinary retention. Would recommend that be continued at [facility] and void trial initiated there once she is more ambulatory. We will keep Claros in for now Code Status: DNR/DNI DVT Prophylaxis: Lovenox Total Time Total Time Spent Total Time Spent (In Minutes): 35 minutes Discharge Plan Discharge Items Patient Disposition: Transfer Inpatient Rehab Fac Reason For Visit: AMBULATORY DYSFUNCTION, WEAKNESS Discharge Diagnosis: Debility Generalized Weakness Ambulatory Dysfunction Condition on Discharge: Fair Activity: Resume your previous activity Non-emergency contact: Primary Care Provider Call non-emergency contact if: you have any medication questions and your symptoms worsen Follow-up/Referrals: Laurita Ryder MD [Primary Care Provider] - (Please make an appointment with your PCP within 7 days following discharge from the facility) Diet: Heart Healthy Addtl Attending Provider Instructions: You were admitted from [facility] due to progressive weakness and needing placement. You will be discharged to [facility] No medication changes were made Please take precautions to avoid falls Keep appointments with your healthcare provider Pending Studies at Discharge: No Stand-Alone Forms: My [facility] Skilled Items Patient informed of condition?: Yes DNR: Yes Discharge Level of Care: Skilled Communicable Disease: No Discharge Prognosis: Stable Lines: None Urinary Catheter: Yes Medications and DC Order Prescriptions: Continued lisinopril 10 mg tablet 10 mg PO DAILY RF: 0 carbidopa-levodopa 25-100 mg tablet 0.5 tab PO BIDWMEAL RF: 0 atorvastatin 40 mg tablet 40 mg PO DAILY RF: 0 aspirin 81 mg tablet,delayed release (DR/EC) 81 mg PO DAILY RF: 0 multivitamin Tablet 1 tab PO DAILY RF: 0 potassium chloride 10 mEq capsule, extended release 10 meq PO 3XWK RF: 0 loperamide 2 mg capsule 2 mg PO QID PRN (Reason: Diarrhea) RF: 0 ondansetron HCl 4 mg tablet 4 mg PO Q6 PRN (Reason: Nausea) RF: 0 sennosides-docusate sodium [Senna Plus] 8.6-50 mg Tablet 1 tab-cap PO DAILY PRN (Reason: Constipation) RF: 0 docusate sodium 50 mg Capsule 100 mg PO BID RF: 0 melatonin 3 mg Tablet 3 mg PO HS RF: 0 acetaminophen [Tylenol Extra Strength] 500 mg Tablet 1,000 mg PO Q8 PRN (Reason: Fever Or Pain) RF: 0 furosemide 20 mg tablet 20 mg PO 3XWK RF: 0 loratadine [Claritin] 10 mg Tablet 10 mg PO HS RF: 0 diclofenac sodium 1 % Gel 2 g TOPICAL QID PRN (Reason: Pain) RF: 0 Systane Gel 0.4-0.3 % Drops,Gel 1 drp OPHTHALMIC (EYE) BID RF: 0 Discharge Orders: Discharge Order (Routine); Ordered 09/28/21 Ordered By: Zeynep Landon Admission Data Admit Date/Time: 09/27/21 14:16 Attending Provider: Zeynep Landon Admit Provider: Elías Lazaro Primary Care Provider: Laurita Ryder Other Providers: [facility] ; Elías Lazaro ; [facility] Other Interventions: Discharge Summary Assessment (RN) Last Done: 09/28/21 11:07
== END 2021-09-28 13:50 ==
LOC: ED 10:32 → 2W 10:32 → SUATTDRO 14:52 → 2W 17:09